=== PATIENT | female | born 1960 | race Caucasian/White ===

== ENCOUNTER → 2017-10-01 12:41 | Outpatient (CLI) | payer BC, SELFPAY ==
--- NOTE | 2017-10-01 12:49 | XR_ITS ---
XR KUB Ordering Physician: Nader Mcknight MD Patient Age: 57 years: Female HISTORY: ITS.REASON: CONSTIPATIONabdominal pain. Constipation. Umbilical pain. HISTORY of diverticulitis. TECHNIQUE: Single supine view abdomen radiograph. COMPARISON : Previous CT abdomen and pelvis November 2016 FINDINGS Prominent, increased stool is seen throughout the right colon with generous stool the transverse colon findings suggest mild to moderate constipation in these areas. Minimal stool and gas is seen at the left colon and rectosigmoid. Small bowel unremarkable. No significant calcifications. Osseous structures unremarkable. IMPRESSION--------- 1. No acute findings. 2. mild/moderate constipation at the right and transverse colon. . Otherwise Minimal stool and gas at the rectosigmoid and left colon.
== END ==
PROVIDERS: PCP Family Medicine; Visit Provider Family Medicine
DX: K59.00 Constipation, unspecified (principal)
CPT/HCPCS: 74018

== ENCOUNTER → 2018-01-31 08:10 | Outpatient (CLI) | payer BC, SELFPAY ==
--- NOTE | 2018-01-31 08:11 | MM_ITS ---
MM Dig screening mamm BI w/CAD CAD Screening ORDERING PHYSICIAN : Rik Dang MD PATIENT AGE: 57 years GENDER: Female HISTORY. Taking Premarin/estrogen. Previous benign excisional biopsy on right. . No new complaints. Family history. Maternal cousin and maternal great aunt with breast cancer COMPARISON: Previous mammograms: Multiple previous mammograms including April 2014, July 2015, 2015, November 2011.: TECHNIQUE: Standard CC and MLO images were obtained. R2 CAD reviewed. FINDINGS: Moderately dense mildly heterogeneous breast bilaterally but with overall similar parenchymal fibroglandular pattern. Prior studies are helpful with no significant new findings . CAD computer review highlighted no areas of concern either RIGHT BREAST:Minimal nodularity at the deep right breast is been present since 2014. & 2016 studies. Can be followed. LEFT. BREAST:Both breast demonstrate increased from gland density towards axillary right and left breast. Overall stable appearance here. Follow up one year. IMPRESSION: . Stable bilateral mammogram. .. No new findings of significant concern. Follow-up one year recommended Moderately dense breast in part reflecting exogenous hormone effect.. BI-RADS Category: 2 Benign Finding(s) RECOMMENDED FOLLOW-UP: 1YR - 1 YEAR FOLLOW-UP (A letter has been sent to the patient regarding results of the study.)
== END ==
PROVIDERS: PCP Family Medicine; Visit Provider Nurse Practitioner Obstetrics & Gynecology
DX: Z12.31 Encounter for screening mammogram for malignant neoplasm of breast (principal)
CPT/HCPCS: 77067

== ENCOUNTER → 2018-06-14 13:39 | Outpatient (CLI) | payer BC, SELFPAY ==
[2018-06-14 13:59] LABS: Blood Urea Nitrogen 14 mg/dL (7-18); Estimated Glomerular Filt Rate 65 ml/min (>60); GFR (African American) 78 ML/MIN (>60)
--- NOTE | 2018-06-14 16:00 | CT_ITS ---
CT abdomen pelvis w con CLINICAL INDICATION: Left lower quadrant pain ITS.REASON: LLQ PAIN ORDERING PHYSICIAN: Maria Luz Bauer MD PATIENT AGE: 58 years COMPARISON: 11/13/2016 TECHNIQUE: Axial images obtained with sagittal and coronal reformats. All CT scans at the facility use one or more dose reduction, viz: automated exposure control, ma/kV adjustment per patient size (including targeted exams where dose is matched to indication, i.e. head), or iterative reconstruction technique. PROCEDURE: Oral Contrast: Gastroview IV Contrast: 75 mL Isovue-370. FINDINGS: There is a moderate-sized hiatal hernia. 7 mm isodense is present in the hepatic dome and may be due to a hepatic cyst. No radio opaque gallstones are evident. The spleen, adrenal glands, and pancreas are unremarkable. No renal or ureteral calculi. No hydronephrosis. There is a moderate amount retained colonic feces no evidence of appendicitis. There is diverticulosis of the descending colon with focal pericholecystic stranding of the fat in the left iliac fossa with thickened diverticulum at this area consistent with acute diverticulitis. No evidence of abscess or perforation. The colon at this region lies between the left psoas muscle and the ileum. This is an anatomic variant. No acute bony anomalies. IMPRESSION: Acute diverticulitis of the descending colon. No evidence of abscess or perforation.
== END ==
PROVIDERS: PCP Family Medicine; Visit Provider Emergency Medicine
DX: R10.32 Left lower quadrant pain (principal)
CPT/HCPCS: 36415; 74177; 82565; 84520; Q9967

== ENCOUNTER → 2018-12-19 10:57 | Outpatient (CLI) | payer BC, SELFPAY ==
[2018-12-19 11:19] LABS: Blood Urea Nitrogen 11 mg/dL (7-18); Estimated Glomerular Filt Rate 65 ml/min (>60); GFR (African American) 78 ML/MIN (>60)
--- NOTE | 2018-12-19 11:52 | CT_ITS ---
CT abdomen pelvis w con CLINICAL INDICATION: Lower abdominal pain, history of diverticulitis ITS.REASON: ABD PAIN ORDERING PHYSICIAN: FILOMENA Farrell PATIENT AGE: 58 years COMPARISON: None TECHNIQUE: Axial images obtained with sagittal and coronal reformats. All CT scans at the facility use one or more dose reduction, viz: automated exposure control, ma/kV adjustment per patient size (including targeted exams where dose is matched to indication, i.e. head), or iterative reconstruction technique. PROCEDURE: Oral Contrast: Gastroview IV Contrast: 75 mL's Optiray 350. FINDINGS: There is a moderate-sized hiatal hernia. Isodensity is present but nature aspect of the right hepatic lobe and may represent a small hepatic cyst at 6 mm. The gallbladder, spleen, adrenal glands, and pancreas have an unremarkable appearance. No intestinal obstruction or free air. No evidence of appendicitis or diverticulitis. There aren't any loops of the colon on the left.. There are few scattered diverticula of the colon. No pelvic mass abnormal fluid collection or focal inflammatory change. No acute bony anomalies. IMPRESSION: No acute abdominal or pelvic findings
== END ==
PROVIDERS: Visit Provider Physician Assistant
DX: R10.32 Left lower quadrant pain (principal)
CPT/HCPCS: 36415; 74177; 82565; 84520; Q9967

== ENCOUNTER 2018-12-24 08:00 | Outpatient (RCR) | payer BC, SELFPAY ==
--- NOTE | 2018-12-05 10:23 | HMH.PTOPEV ---
PT Outpatient Evaluation Rehab PT Outpatient Evaluation Start: 12/05/18 08:41 Freq: Status: Active Protocol: Document 12/05/18 08:41 PHOSABINA (Rec: 12/05/18 09:37 PHORNE [id number]) Electronically Signed By Mahin Randall, PT 12/05/18 08:41 Outpatient Therapy Subjective History Subjective History Pt is a 58 yowf with complaints of right hip pain. Pt reports pain has been there for over two years with seemingly no mechanism of injury. Pt reports having PT 2 years ago which helped, but pain has progressively gotten worse since then. Pt reports seeing the doctor 5 days ago, who prescribed oral steroids, which helped. Pt reports pain is 2/10 at this time, 2/10 at best, and 4/10 at worst and is an ache. Pt reports pain with abduction, IR, and ER of the right hip. Pt reports times when her right knee also gives out. 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 Pt denies comorbidities. Past surgeries include tubal ligation, and tonsilectomy. Chief Complaint Pain Catches/Locks Symptom Type Ache Symptoms Relieved By Rest/Positioning Heat Prescription Meds Symptoms Aggravated By Sitting Standing Bending/Stooping Physical Activity Twisting Walking Lifting Prior Functional Limitations None Current Functional Limitations Standing Sitting Walking Symptom Description Constant but Variable Level of pain today (0-10) 2 Pain scale - at its best (0-10) 2 Pain scale - at its worst (0-10) 4 Hip/Knee Eval Gait Observation General Gait Pattern Observation No Deviations/Normal Assistive Device Assistive Devices None / NA Palpation Tenderness right Knee Palpation Finding None/Normal Hip Palpation Findings Tenderness MMT left
== END 2018-12-24 08:05 | disposition home or self-care (01) ==
LOC: PT 08:00
PROVIDERS: Visit Provider Family Medicine
DX: M25.551 Pain in right hip (principal)
CPT/HCPCS: 97010; 97014; 97033; 97035; 97110; 97140; 97163; G0283

== ENCOUNTER → 2019-01-14 13:22 | Outpatient (CLI) | payer BC, SELFPAY ==
--- NOTE | 2019-01-14 13:28 | US_ITS ---
US Kidney CLINICAL INDICATION: ITS.REASON: HEMATURIA ORDERING PHYSICIAN: Eliazar Banda MD PATIENT AGE: 58 years Comparison: None FINDINGS: Kidneys are normal size shape and position. No hydronephrosis. No cortical thinning. No obvious mass IMPRESSION: Negative bilateral renal ultrasound
== END ==
PROVIDERS: PCP Family Medicine; Visit Provider Family Medicine
DX: R31.21 Asymptomatic microscopic hematuria (principal)
CPT/HCPCS: 76770

== ENCOUNTER → 2019-07-22 09:06 | Outpatient (POV) | payer BC, SELFPAY | PROVIDERS: Visit Provider Dermatology | DX: Z00.00 Encounter for general adult medical examination without abnormal findings (principal) ==

== ENCOUNTER → 2020-03-30 08:44 | Outpatient (POV) | payer BC, SELFPAY | PROVIDERS: PCP Family Medicine; Visit Provider Dermatology | DX: Z00.00 Encounter for general adult medical examination without abnormal findings (principal) ==

== ENCOUNTER → 2020-11-13 11:36 | Outpatient (CLI) | payer BC, SELFPAY ==
--- NOTE | 2020-11-13 12:00 | XR_ITS ---
PROCEDURE: XR SHOULDER LT MIN 2V CLINICAL INDICATION: Shoulder pain COMPARISON: No exams were available for comparison FINDINGS: No fracture or dislocation. No lytic or blastic change. There is normal mineralization. Mild osteoarthritic change of the AC joint. Mild subacromial stenosis. The glenohumeral joint has an unremarkable appearance. Other findings:None. 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
== END ==
PROVIDERS: PCP Family Medicine; Visit Provider Family Medicine
DX: M25.512 Pain in left shoulder (principal); G47.9 Sleep disorder, unspecified
CPT/HCPCS: 73030

== ENCOUNTER → 2020-12-10 12:52 | Outpatient (CLI) | payer BC, SELFPAY | PROVIDERS: PCP Psychiatry & Neurology Psychiatry; Visit Provider Family Medicine | DX: G47.33 Obstructive sleep apnea (adult) (pediatric) (principal); G47.00 Insomnia, unspecified; R53.83 Other fatigue | CPT/HCPCS: G0399 ==

== ENCOUNTER 2021-06-17 12:47 | Emergency (ER) | payer BC, SELFPAY ==
[2021-06-17 12:50] VITALS: BP 133/79; PULSE 92; RESP 20; TEMP 36.7; O2SAT 97; BMI 21.6
--- NOTE | 2021-06-17 13:16 | HMH.EDUTC ---
[facility] [place] Disposition Clinical Impression: Ear problem Qualifiers: Laterality: right Qualified Code(s): H93.91 - Unspecified disorder of right ear Disposition: Home, Self-Care Condition on Discharge: Good Additional Instructions: If you start feeling bug in ear return or follow up with ENT for removal Return if needed Straight to ER if any life threatening symptoms Follow up with Family Doctor if no improvement or any worsening of symptoms Referrals: Eliazar Banda MD [Primary Care Provider] - As needed Time of Disposition: 13:22 Medical Decision Making - Eduard Inquiry Pt receiving controlled substance: No Eduard was queried for this patient: No Vital Signs: 06/17/21 12:50 Temperature 98.0 F Temperature Source Oral Pulse Rate [Right Brachial] 92 H Respiratory Rate 20 Blood Pressure [Right Arm] 133/79 Blood Pressure Mean [Right Arm] 97 Blood Pressure Source [Right Arm] Automatic Cuff Blood Pressure Position [Right Arm] Sitting 02 Sat by Pulse Oximetry 97 Oxygen Delivery Method Room Air Medical Decision Narrative: Patient ear flushed with saline and did observe small red object possible small insect that was drained from ear with saline Patient tolerated well [facility] [place] HPI - General Stated complaint: f/o in rt ear Time Seen by Provider: 06/17/21 13:16 Mode of Arrival: Ambulatory Source of Information: Patient Limitations: No Limitations Description of Symptoms (Recalled from Triage Doc. by RN): PATIENT C/O POSSIBLE BUG IN RIGHT EAR HEENT Symptoms (Recalled from RN notes): Yes Resp Symptoms (Recalled from RN notes): No Skin Symptoms (Recalled from RN notes): No MS Symptoms (Recalled from RN notes): No Functional Status (Recalled from RN notes): WNL - History of Present Illness Provider Complaint: Patient states that she was sitting outside when she felt like a bug flew into her right ear and not sure if it came out or not Statse that at times she feels like she can feel and hear a flutter like sound so she came in to get her ear checked to see if it is still in there or not - Related Data Home Medications Medication Instructions Recorded Confirmed gabapentin 100 mg capsule 100 mg PO HS cap 12/29/20 03/09/21 sulindac 200 mg tablet 200 mg PO BID PRN 12/29/20 03/09/21 Allergies Allergy/AdvReac Type Severity Reaction Status Date / Time codeine [CODEINE] Allergy Mild Verified 03/09/21 08:07 erythromycin base Allergy Mild Verified 03/09/21 08:07 [ERYTHROMYCIN BASE] Penicillins [PENICILLINS] Allergy Mild Verified 03/09/21 08:07 tetracycline [TETRACYCLINE] Allergy Mild Verified 03/09/21 08:07 - Worker's Comp Is this a Worker's Comp case?: No [facility] History - Hepatitis A Screen Drug use history?: No High risk sexual behaviors?: No History of sexually transmitted infection?: No Currently employed?: No Childcare worker?: No Do you have indoor plumbing?: Yes Do you have electricity?: Yes Attestation statement:: This patient has been screened for Hepatitis A risk factors. I have reviewed the patient's past medical history: Yes Other Medical History: Reports: Arthritis, Sinus Problems, Other Comment: Indigestion. Varicose Veins. Hot Flashes. Constipation Laterality Cases: Bilateral: Tonsillectomy Other Surgeries: Yes: Tubal Ligation, Other Amputation: No Fractures: No Comment: Varicose Veins. Breast Bx - Social History Smoking Status: Former smoker Alcohol Intake: current Alcohol Intake Frequency:: holidays/special occasions only Substance Use Type: denies use Occupational Status: employed Housing: house Household Members: spouse Family Hx:: Coronary Artery Disease, Cancer, Hypertension Comment: [facility] of [facility] [employer] history: Tubal Ligation ROS Obtained: Yes All systems reviewed & no additional complaints, Yes Systems reviewed as appropriate & no additional complaints - Constitutional Constitutional: Reports system reviewed and no additional complaints, except as docu,
[2021-06-17 13:20] VITALS: BP 133/79; PULSE 92; RESP 20; TEMP 36.7; O2SAT 97
== END 2021-06-17 13:25 | disposition home or self-care (01) ==
PROVIDERS: Emergency Provider Nurse Practitioner; PCP Family Medicine
DX: H93.91 Unspecified disorder of right ear (principal)
CPT/HCPCS: 99202; G0463

== ENCOUNTER → 2021-07-19 15:33 | Outpatient (CLI) | payer BC, SELFPAY | PROVIDERS: PCP Family Medicine; Visit Provider Nurse Practitioner | DX: Z20.822 Contact with and (suspected) exposure to COVID-19 (principal) | CPT/HCPCS: C9803; U0003; U0005 ==

== ENCOUNTER → 2022-01-12 07:56 | Outpatient (CLI) | payer BC, SELFPAY ==
--- NOTE | 2022-01-12 08:00 | MM_ITS ---
PROCEDURE INFORMATION: Exam: MG Bilateral Screening 3D Mammography Exam date and time: 01/12/2022 7:59 AM Age: 61 years old Clinical indication: Screening mammogram. TECHNIQUE: Imaging protocol: Bilateral Screening tomosynthesis and 2D mammography including computer-aided detection (CAD) when performed. COMPARISON: 1. MG SCBI MM Dig screening mamm BI w/CAD 01/31/2018 8:26 AM 2. MG DMDXUWAR DIG MAMM-DX UNI RT W ADD VIEW 08/28/2016 1:13 PM 3. MG DMSB DIG MAMM-SCREEN JESUS MANUEL 08/02/2016 9:53 AM 4. MG DMSB DIG MAMM-SCREEN JESUS MANUEL 07/30/2015 3:16 PM FINDINGS: MAMMOGRAPHY: Breast composition: The breast is heterogeneously dense, which may obscure small masses. Mass: None. Architectural distortion: No new or suspicious architectural distortion. Calcifications: No new or suspicious calcifications are present Asymmetric density: No new or suspicious asymmetric density is present Skin thickening: None. Axillary adenopathy: None. IMPRESSION: No mammographic evidence of malignancy. Recommend annual screening mammography unless otherwise clinically indicated. ASSESSMENT: BI-RADS category 1: Negative
== END ==
PROVIDERS: PCP Family Medicine; Visit Provider Physician Assistant
DX: Z12.31 Encounter for screening mammogram for malignant neoplasm of breast (principal)
CPT/HCPCS: 77063; 77067

== ENCOUNTER → 2022-05-23 09:55 | Outpatient (POV) | payer BC, SELFPAY | PROVIDERS: Visit Provider Dermatology | DX: Z00.00 Encounter for general adult medical examination without abnormal findings (principal) ==

== ENCOUNTER 2023-03-24 11:07 | Emergency (ER) | payer BC, SELFPAY ==
[2023-03-24 11:15] VITALS: BP 128/76; PULSE 90; RESP 20; TEMP 36.6; O2SAT 99; BMI 22.8
--- NOTE | 2023-03-24 11:39 | EXP.UTC ---
Discharge Plan Disposition Patient Disposition: Home, Self-Care Condition: Good Prescriptions Prescriptions: New cefdinir 300 mg capsule 300 mg PO BID Qty: 20 0RF fluticasone propionate [fluticasone propionate] 50 mcg/actuation spray,suspension 1 spray intranasal DAILY Qty: 9.9 0RF No Action gabapentin 100 mg capsule 100 mg PO HS sulindac 200 mg tablet 200 mg PO BID PRN Referrals Follow up/Referrals: Eliazar Banda MD [Primary Care Provider] - See instructions Activity Restrictions/Add. Instructions Additional Instructions/Restrictions: Start antibiotic as soon as possible and be sure to take as ordered for full length of time even though he should start feeling better in 24-48 hours. Tylenol or Motrin as needed for pain or fever Encourage fluids, water, Gatorade, Powerade, Pedialyte if infant/toddler/child Warm compresses often helps when placed over ear Return immediately for new or worsening symptoms no noticeable improvement in 48-72 hours and in 10-14 days to ensure the ears are return to baseline. Follow-up with primary care Clinical Impressions Clinical Impression: Otitis media Qualifiers: Otitis media type: suppurative Chronicity: acute Laterality: left Recurrence: non-recurrent Spontaneous tympanic membrane rupture: without spontaneous rupture Qualified Code(s): H66.002 - Acute suppurative otitis media without spontaneous rupture of ear drum, left ear Instructions Patient Instructions: Middle Ear Infection Discharge ED Provider: Anderson ([facility])Herlinda [facility] [place] HPI General Stated complaint: Ear pain cough drainage Mode of Arrival: Ambulatory Source of Information: Patient Limitations: No Limitations Time Seen by Provider: 03/24/23 11:39 Description of Symptoms (Recalled from Triage Doc. by RN): PATIENT C/O BILATERAL EAR PRESSURE, RUNNY NOSE AND COUGH SINCE YESTERDAY HEENT Symptoms (Recalled from RN notes): Yes Resp Symptoms (Recalled from RN notes): Yes Skin Symptoms (Recalled from RN notes): No MS Symptoms (Recalled from RN notes): No Functional Status (Recalled from RN notes): WNL History of Present Illness Provider Complaint: 62 yr old female presents for left ear pain, runny nose, sinus pressure, congestion and sinus tenderness Related Data Home Medications Medication Instructions Recorded Confirmed gabapentin 100 mg capsule 100 mg PO HS 12/29/20 03/09/21 sulindac 200 mg tablet 200 mg PO BID PRN 12/29/20 03/09/21 Previous Rx's Medication Instructions Recorded cefdinir 300 mg capsule 300 mg PO BID #20 caps 03/24/23 fluticasone propionate 50 1 spray intranasal DAILY #9.9 mL 03/24/23 mcg/actuation nasal spray,suspension Allergies Allergy/AdvReac Type Severity Reaction Status Date / Time codeine [CODEINE] Allergy Mild Verified 03/09/21 08:07 erythromycin base Allergy Mild Verified 03/09/21 08:07 [ERYTHROMYCIN BASE] Penicillins [PENICILLINS] Allergy Mild Verified 03/09/21 08:07 tetracycline [TETRACYCLINE] Allergy Mild Verified 03/09/21 08:07 Worker's Comp Is this a Worker's Comp case?: No [facility] Disclaimer: The information contained in this section may have been updated after the patient was seen, as this information can be updated by other users. 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
[2023-03-24 11:45] VITALS: BP 128/76; PULSE 90; RESP 20; TEMP 36.6; O2SAT 99
== END 2023-03-24 11:50 | disposition home or self-care (01) ==
PROVIDERS: Emergency Provider Nurse Practitioner Family; PCP Family Medicine
DX: H66.002 Acute suppurative otitis media without spontaneous rupture of ear drum, left ear (principal); R09.81 Nasal congestion; Z87.891 Personal history of nicotine dependence
CPT/HCPCS: 99212; 99214; G0463

== ENCOUNTER → 2023-06-14 07:53 | Outpatient (CLI) | payer BC, SELFPAY ==
--- NOTE | 2023-06-14 07:56 | MM_ITS ---
PROCEDURE INFORMATION: Exam: MG Bilateral Screening 3D Mammography Exam date and time: 06/14/2023 7:51 AM Age: 63 years old Clinical indication: Screening mammogram TECHNIQUE: Imaging protocol: Bilateral Screening tomosynthesis and 2D mammography including computer-aided detection (CAD) when performed. COMPARISON: 1. MG MM DIG SCREENING MAMM BI W/CAD 01/12/2022 7:59 AM 2. MG SCBI MM Dig screening mamm BI w/CAD 01/31/2018 8:26 AM 3. MG DMDXUWAR DIG MAMM-DX UNI RT W ADD VIEW 08/28/2016 1:13 PM 4. MG DMSB DIG MAMM-SCREEN JESUS MANUEL 08/02/2016 9:53 AM FINDINGS: MAMMOGRAPHY: Breast composition: The breast is heterogeneously dense, which may obscure small masses. Mass: None. Architectural distortion: No new or suspicious architectural distortion. Calcifications: Stable benign-appearing calcifications are present. No new or suspicious cluster of microcalcifications have developed. Asymmetric density: No new or suspicious asymmetric density is present Skin thickening: None. Axillary adenopathy: None. IMPRESSION: No mammographic evidence of malignancy. Recommend annual screening mammography unless otherwise clinically indicated. ASSESSMENT: BI-RADS category 2: Benign
== END ==
PROVIDERS: PCP Psychiatry & Neurology Sleep Medicine; Visit Provider Family Medicine
DX: Z12.31 Encounter for screening mammogram for malignant neoplasm of breast (principal)
CPT/HCPCS: 77063; 77067

== ENCOUNTER 2024-11-24 07:52 | Day surgery (SDC) | payer BC, SELFPAY ==
[2024-11-21 13:20] VITALS: BMI 22.4
[2024-11-24 08:28] VITALS: BP 110/72; PULSE 84; RESP 18; TEMP 36.5; O2SAT 96
[2024-11-24] MEDS: LACTATED RINGERS 1000ML 1,000 ML 50 ML IV (08:31)
--- NOTE | 2024-11-24 08:50 | P.PNANES_ITS ---
[facility] Disclaimer: The information contained in this section may have been updated after the patient was seen, as this information can be updated by other users. Medical History Otitis media Ear problem Hormone replacement therapy Migraine Surgical History (Updated 11/21/24 @ 13:16 by Mar East RN) History of breast biopsy History of tubal ligation History of tonsillectomy Family History (Updated 11/21/24 @ 13:17 by Mar East RN) Other Dementia Heart disease Social History Smoking Status: Former smoker alcohol intake: current alcohol intake frequency: holidays/special occasions only substance use type: denies use current occupational status: employed Travel in the last 8 weeks: None household members: spouse housing: house Have you lived/traveled outside [place] in past 30 days?: No Contact w/someone who lives/traveled outside US past 30 days?: No Exposure to someone with infectious disease in past 14 days?: No Do you have a fever (greater than 100.4 F or 38 C)?: No Have you tested positive for COVID-19: No Exposed to someone with COVID-19 in past 14 days?: No Do you have a sore throat?: No Do you have a cough?: No Do you have any weakness?: No Do you have any diarrhea?: No Are you experiencing any unusual bleeding?: No Do you have any muscle aches/pain?: No Do you have any abdominal pain?: No Are you experiencing loss of taste or smell?: No [facility] Anesthesia Checklist Patient Identification Patient Identification: Verbal (Name & ) Structural Data Admitted From: Home Planned Operative Procedure/s: colonoscopy Consent for Planned Operative Procedure(s) Verified: Yes NPO Status Verified Time NPO: 00:00 Airway Assessment Mallampati Score:: Class II C-Spine Mobility Assessed: Yes TMJ Mobility Assessed: Yes Dentition: Good Dentition Neurological Assessment Level of Consciousness: Awake, Alert and Appropriate Anesthesia Plan Anesthesia Risk discussed: Yes Anesthesia Plan: Verified ASA Class: II Anesthesia Type: MAC
--- NOTE | 2024-11-24 08:50 | EXP.HP ---
History of Present Illness *Admission Date: 11/24/24 *Reason for visit:: Screening for colon cancer *History of present illness: Mrs. Barron is a 64-year-old female who is here for screening colonoscopy. Her last colonoscopy was 15 years ago. The examination is deemed medically necessary for screening colonoscopy. The patient has been seen, interviewed and examined prior to the procedure by both myself and the anesthesia provider. [facility] Disclaimer: The information contained in this section may have been updated after the patient was seen, as this information can be updated by other users. Medical History (Updated 11/24/24 @ 09:01 by Guille Aponte II, MD) Otitis media Ear problem Hormone replacement therapy Migraine Surgical History (Updated 11/21/24 @ 13:16 by Mar East RN) History of breast biopsy History of tubal ligation History of tonsillectomy Family History (Updated 11/21/24 @ 13:17 by Mar East RN) Other Dementia Heart disease Social History Smoking Status: Former smoker alcohol intake: current alcohol intake frequency: holidays/special occasions only substance use type: denies use current occupational status: employed Travel in the last 8 weeks: None household members: spouse housing: house Have you lived/traveled outside US in past 30 days?: No Contact w/someone who lives/traveled outside US past 30 days?: No Exposure to someone with infectious disease in past 14 days?: No Do you have a fever (greater than 100.4 F or 38 C)?: No Have you tested positive for COVID-19: No Exposed to someone with COVID-19 in past 14 days?: No Do you have a sore throat?: No Do you have a cough?: No Do you have any weakness?: No Do you have any diarrhea?: No Are you experiencing any unusual bleeding?: No Do you have any muscle aches/pain?: No Do you have any abdominal pain?: No Are you experiencing loss of taste or smell?: No Other Medical History Have you received the Flu Vaccine for this season: No Have you received the Pneumonia Vaccine: No Review of Systems Review of Systems Review of systems (narrative): Negative *Cardiovascular Comments: Negative *Gastrointestinal Comments: Negative *Genitourinary Comments: Negative *Musculoskeletal Comments: Negative *Neurologic Comments: Negative Meds Home Medications and Allergies Home Medications ?Medication ?Instructions ?Recorded ?Confirmed ?Type fluticasone propionate 50 1 spray intranasal DAILY #9.9 mL 03/24/23 11/24/24 Rx mcg/actuation nasal spray,suspension estradiol 0.075 mg/24 hr 1 patch topical WEEKLY 02/15/24 11/24/24 History semiweekly transdermal patch (Trina) progesterone micronized 200 mg 200 mg PO DAILY 02/15/24 11/24/24 History capsule New Prescriptions to Start Prescriptions: Allergies Allergy/AdvReac Type Severity Reaction Status Date / Time codeine (CODEINE) Allergy Mild Rash Verified 11/24/24 08:23 erythromycin base Allergy Mild Rash Verified 11/24/24 08:23 (ERYTHROMYCIN BASE) Penicillins (PENICILLINS) Allergy Mild Rash Verified 11/24/24 08:23 tetracycline (TETRACYCLINE) Allergy Mild Rash Verified 11/24/24 08:23 Exam Data for Last 24 hours I & O for Last 24 hours: Intake & Output 11/21/24 11/22/24 11/23/24 11/24/24 23:59 23:59 23:59 23:59 Weight 135 lb *Routine HEENT Exam Head: Present normocephalic Eye: Present EOMI and PERRL ENT: Present mucous membranes moist *Routine Neck Exam Neck: Present supple *Routine Respiratory Exam Respiratory: Present CTA bilaterally *Routine Cardiovascular Exam Cardiovascular: Present RRR *Routine Abdominal Exam Abdominal: Present soft and normoactive bowel sounds; Absent tenderness *Routine Rectal Exam Rectal:: deferred *Routine Genitalia Exam Genitalia:: deferred *Routine Extremities Exam Extremities: Absent cyanosis, clubbing or edema *Routine Skin Exam Skin: Present warm; Absent rash *Routine Neurological Exam Neurological: Present alert and oriented X3 Assessment and Plan *Assessment and plan (1) Screening for colon cancer: Status: Acute Category: Medical Code(s): Z12.11 - Encounter for screening for malignant neoplasm of colon Plan A/P: 1. Screening for colon cancer is the preprocedural diagnosis. The patient will be anesthetized/sedated using MAC sedation. The patient has been seen and examined. Cardiac and lung assessment prior to the examination is stable. Proceed with planned screening colonoscopy
[2024-11-24 09:01] VITALS: O2SAT 97
--- NOTE | 2024-11-24 09:01 | HMH.PROCNOTE ---
[facility] Procedure Note Date: 11/24/24 Time: 09:17 Procedure Note:: Colonoscopy Procedure Report: Colonoscopy with cold snare polypectomy Endoscopist: Guille Aponte II, MD Referring physician: Yadira Erazo PA-C Date of Procedure: November 24, 2024 Equipment: Olympus 190 variable stiffness pediatric colonoscope Sedation: MAC sedation Indication: Mrs. Barron is a 64-year-old female who is here for screening colonoscopy. Her last colonoscopy was 15 years ago. The patient does have some alternating IBS with alternating constipation and diarrhea. She does have a prior history of diverticulitis and will have some occasional abdominal pain. She reports no rectal bleeding, weight loss or family history of colon cancer. Procedure: Prior to the procedure, a history and physical exam was performed, and patient's medications and allergies were reviewed. The risks, benefits and alternatives of the sedation and procedure were discussed with the patient. All questions were answered and informed consent was obtained. The patient was brought to the procedure room. Patient identification and proposed procedure were verified by the physician and the nurse. The patient was placed in a left lateral decubitus position and the scope was passed under direct vision. Throughout the procedure, the patient's blood pressure, pulse, and oxygen saturations were monitored continuously. The colonoscopy was accomplished without difficulty. The patient tolerated the procedure well. Findings: On digital rectal examination there was normal rectal tone. There were no external hemorrhoids. The colonoscope was introduced through the anal canal to the rectum and advanced to the cecum. The ileocecal valve and appendiceal orifice were identified. The scope was advanced a short distance into the ileum which appeared grossly normal. The scope was then withdrawn into the colon. There were 4 colon polyps (cecum x 1 (5 mm), ascending x 2 (2 and 3 mm) and descending x 1 (4 mm)). These were all removed via cold snare polypectomy. The remaining cecum, ascending and transverse colon and mucosa were grossly normal. There were scattered diverticuli throughout the descending and sigmoid colon (LEFT colon). The rectum itself was normal. There was some blanching of the rectal mucosa (possible perfusion defect). Upon retroflexion within the rectum there were grade 1-2 internal hemorrhoids. The preparation was excellent throughout with Dickinson Preparation Score of 9. The cecal time was 12 minutes. Impression: 1. Diminutive colonic polyps x 4 2. Left-sided diverticulosis 3. Grade 1-2 internal hemorrhoids Plan: I will follow-up the polyp histology and recommend repeat surveillance colonoscopy again in 5 to 7 years based upon the pathology. I would encourage dietary measures and psyllium fiber supplementation on a long-term daily maintenance basis.
[2024-11-24 09:22] VITALS: BP 96/59; PULSE 75; RESP 17; TEMP 36.2; O2SAT 97
[2024-11-24 09:32] VITALS: BP 109/62; PULSE 70; RESP 17; O2SAT 99
[2024-11-24 09:42] VITALS: BP 117/68; PULSE 74; RESP 18; O2SAT 99
[2024-11-24 09:52] VITALS: BP 118/48; PULSE 72; RESP 17; O2SAT 98
== END 2024-11-24 10:14 | disposition home or self-care (01) ==
PROVIDERS: PCP Family Medicine; Visit Provider Internal Medicine Gastroenterology
PROC: 0DJD8ZZ Inspection of Lower Intestinal Tract, Via Natural or Artificial Opening Endoscopic (ICD-10-PCS; CPT 45378; principal; 2024-11-24 09:30)
DX: K63.5 Polyp of colon (principal); K57.30 Diverticulosis of large intestine without perforation or abscess without bleeding; K64.8 Other hemorrhoids; Z12.11 Encounter for screening for malignant neoplasm of colon; K58.2 Mixed irritable bowel syndrome
CPT/HCPCS: 45385; J7120

== ENCOUNTER 2025-04-20 10:44 | Outpatient (CLI) | payer BC, SELFPAY ==
--- NOTE | 2025-04-20 10:45 | CT_ITS ---
FINAL REPORT TECHNIQUE: CT examination of the paranasal sinuses was performed without intravenous contrast using axial images from the vertex through the upper neck. Multiplanar reconstructions in the sagittal and coronal planes were subsequently performed. This study was performed with techniques to keep radiation doses as low as reasonably achievable (ALARA). Individualized dose reduction techniques using automated exposure control or adjustment of mA and/or kV according to the patient's size were employed. CLINICAL HISTORY: ACUTE SINUSITIS COMPARISON: None FINDINGS: CT SINUSES: There is mild mucoperiosteal thickening in the sphenoid sinus. The remainder of the paranasal sinuses are well aerated. The ostiomeatal units are intact. There is no fracture. There are no air-fluid levels. IMPRESSION: Mild mucoperiosteal thickening in the sphenoid sinus, without evidence of air-fluid levels. Reviewed, Interpreted and Dictated by Jairo Fair MD Transcribed by Noemí Pinedo Authenticated and [facility]
== END 2025-04-20 23:59 | disposition home or self-care (01) ==
LOC: RAD 10:44
PROVIDERS: PCP Family Medicine; Visit Provider Family Medicine
DX: J01.90 Acute sinusitis, unspecified (principal); R93.0 Abnormal findings on diagnostic imaging of skull and head, not elsewhere classified
CPT/HCPCS: 70486

== ENCOUNTER 2025-04-26 16:03 | Inpatient (IN) | payer BC, SELFPAY ==
[2025-04-26] VITALS (18 sets, daily range): BP systolic 121–166; BP diastolic 50–83; PULSE 80–141; RESP 16–30; TEMP 36.8–37.1; O2SAT 94–98; BMI 22.3; BMI 22.4
[2025-04-26 16:23] LABS: Coronavirus 19, PCR Not Detected (NotDetected); Influenza A, PCR Not Detected (NotDetected); Influenza B, PCR Not Detected (NotDetected)
--- NOTE | 2025-04-26 16:30 | ECG_ITS ---
APPROVED REPORT Exam: Resting ECG HR:134 bpm ECG Measurements Heart Rate 134 AXES WV 138 P 75 QRSd 87 QRS 76 QT 276 T 56 QTc 355 Conclusion SINUS TACHYCARDIA ABNORMAL RHYTHM ECG UNCONFIRMED REPORT Electronically signed by : Mark Guevara, 04/26/2025 23:10:44
--- NOTE | 2025-04-26 16:31 | CT_ITS ---
PROCEDURE INFORMATION: Exam: CT Abdomen And Pelvis With Contrast Exam date and time: 04/26/2025 6:09 PM Age: 64 years old Clinical indication: Abdominal pain TECHNIQUE: Imaging protocol: Computed tomography of the abdomen and pelvis with contrast. 3D rendering (Not supervised by radiologist): MIP and/or 3D reconstructed images were created by the technologist. Radiation optimization: All CT scans at this facility use at least one of these dose optimization techniques: automated exposure control; mA and/or kV adjustment per patient size (includes targeted exams where dose is matched to clinical indication); or iterative reconstruction. Contrast material: ISOVUE; Contrast volume: 80 ml; Contrast route: IV; COMPARISON: CT - ABDPELW CT abdomen pelvis w con 12/19/2018 1:28 PM FINDINGS: Lungs: Dependent bilateral lung base opacities favor atelectasis. Liver: Normal. No mass. Gallbladder and biliary ducts: Normal. No calcified stones. No ductal dilation. Pancreas: Normal. No ductal dilation. Spleen: Normal. No splenomegaly. Adrenal glands: Normal. No mass. Kidneys and ureters: Normal. No hydronephrosis. Stomach and bowel: Large hiatal hernia with significant portion of the gastric body located at the lower mediastinum. There are multiple diverticula throughout the sigmoid colon, with subjacent inflammatory changes compatible with diverticulitis. Appendix: No evidence of appendicitis. Intraperitoneal space: Unremarkable. No free air. No significant fluid collection. Vasculature: Moderate calcific atherosclerotic disease of the abdominal aorta without aneurysmal dilatation is present. Lymph nodes: Unremarkable. No enlarged lymph nodes. Urinary bladder: Unremarkable as visualized. Reproductive: Unremarkable as visualized. Bones/joints: Unremarkable. No acute fracture. Soft tissues: Normal. IMPRESSION: 1. Acute diverticulitis as described above without evidence of colonic perforation or abscess. 2. Large hiatal hernia with significant portion of the gastric body located at the lower mediastinum.
--- NOTE | 2025-04-26 16:31 | CT_ITS ---
PROCEDURE INFORMATION: Exam: CTA Chest With Contrast Exam date and time: 04/26/2025 6:09 PM Age: 64 years old Clinical indication: Cough; Additional info: Cough/tachy TECHNIQUE: Imaging protocol: Computed tomographic angiography of the chest with contrast. Exam focused on the arteries. 3D rendering (Not supervised by radiologist): MIP and/or 3D reconstructed images were created by the technologist. Radiation optimization: All CT scans at this facility use at least one of these dose optimization techniques: automated exposure control; mA and/or kV adjustment per patient size (includes targeted exams where dose is matched to clinical indication); or iterative reconstruction. Contrast material: ISOVUE; Contrast volume: 80 ml; Contrast route: INTRAVENOUS (IV); COMPARISON: CT - ABDPELW CT abdomen pelvis w con 12/19/2018 1:28 PM FINDINGS: Pulmonary arteries: No CT angiography evidence of pulmonary embolism. Aorta: Unremarkable. No aortic aneurysm. No aortic dissection. Lungs: Dependent bilateral lung base opacities favor atelectasis. Pleural spaces: Unremarkable. No pneumothorax. No pleural effusion. Heart: Unremarkable. No cardiomegaly. No pericardial effusion. Coronary arteries: Moderate three-vessel calcific atherosclerotic disease of the coronary arteries. Lymph nodes: Unremarkable. No enlarged lymph nodes. Stomach: Large hiatal hernia with significant portion of the gastric body located at the lower mediastinum. Bones/joints: Unremarkable. No acute fracture. Soft tissues: Unremarkable. IMPRESSION: 1. Large hiatal hernia with significant portion of the gastric body located at the lower mediastinum. 2. No CT angiography evidence of pulmonary embolism.
[2025-04-26] MEDS: 0.9 % SODIUM CHLORIDE 1000ML 1,000 ML 999 ML IV (16:43)
[2025-04-26] MEDS: KETOROLAC 30MG/ML VIAL 30 MG IV (16:44)
--- NOTE | 2025-04-26 16:46 | ED_ITS ---
<Statement entered by Arlyn Guevara MD - 04/26/25 22:59> I was consulted by the BEHZAD, and we discussed the complexity of the problems being addressed. I approved the treatment and management plan for this patient's care in the emergency department, thus performing a substantive portion of the medical decision making. Arlyn Guevara MD, CORBY, FACEP Discharge Plan Disposition Patient Disposition: Admitted Clinical Impressions Clinical Impression: Diverticulitis, Sepsis Discharge ED Provider: Arlyn Guevara General Adult HPI General Chief complaint: PAIN Stated complaint: sick for 2 months, pain all over Time Seen by Provider: 04/26/25 16:21 Mode of Arrival: Ambulatory Source of Information: Patient and Spouse Description of Symptoms (Recalled from ER Triage Doc. by RN): Patient presents to ED from home with c/o generalized bodyaches, nausea, chills, low back pain that radiates through to the lower stomach x2 months. Patient reports feeling unwell since being dx with a sinus infection 03/06/25. States she saw her PCP on and had labs done, reports they were normal . History of Present Illness HPI narrative: 64-year-old female presents to the ED with complaint of nausea, chills, low back pain that radiates through to her abdomen. Says this has been going on for months. She says she was initially diagnosed with a sinus infection she says then she was diagnosed again with a bacterial infection of some kind. She has been on 4 antibiotics. She says she was on azithromycin twice then Levaquin and cefdinir. She was also placed on hydroxyzine for sleep which she took 1 time and felt terrible afterwards. She says she is not felt the same since. She has no chest pain or shortness of breath however her heart rate on arrival is 140. She has nausea no vomiting or diarrhea. She has a headache but those are improving. She has tenderness diffusely in her abdomen. She is tachycardic on estradiol. She also has lower abdominal pain. Related Data Home Medications ?Medication ?Instructions ?Recorded ?Confirmed No Known Home Medications 04/26/2504/04 Allergies Allergy/AdvReac Type Severity Reaction Status Date / Time codeine (CODEINE) Allergy Mild Rash Verified 11/24/24 08:23 erythromycin base Allergy Mild Rash Verified 11/24/24 08:23 (ERYTHROMYCIN BASE) Penicillins (PENICILLINS) Allergy Mild Rash Verified 11/24/24 08:23 tetracycline (TETRACYCLINE) Allergy Mild Rash Verified 11/24/24 08:23 [facility] Disclaimer: The information contained in this section may have been updated after the patient was seen, as this information can be updated by other users. Medical History Otitis media Ear problem Hormone replacement therapy Migraine Surgical History History of breast biopsy History of tubal ligation History of tonsillectomy Family History Other Dementia Heart disease Social History (Updated 04/26/25 @ 21:54 by Lucille Yost RN) Smoking Status: Heavy tobacco smoker alcohol intake: never substance use type: denies use current occupational status: employed and retired Travel in the last 8 weeks?: None household members: spouse housing: house Have you lived/traveled outside US in past 30 days?: No Contact w/someone who lives/traveled outside US past 30 days?: No Exposure to someone with infectious disease in past 14 days?: No Do you have a fever (greater than 100.4 F or 38 C)?: No Have you tested positive for COVID-19?: No Exposed to someone with COVID-19 in past 14 days?: No Do you have a sore throat?: No Do you have a cough?: No Do you have any weakness?: No Do you have any diarrhea?: No Are you experiencing any unusual bleeding?: No Do you have any muscle aches/pain?: No Do you have any abdominal pain?: No Are you experiencing loss of taste or smell?: No Other Medical History Have you received the Flu Vaccine for this season: No Have you received the Pneumonia Vaccine: No ROS Obtained: Yes Systems reviewed as appropriate & no additional complaints except as documented Constitutional Constitutional: Reports as per HPI Physical Exam General General appearance: alert Head Head exam: atraumatic and normocephalic Eye Eye exam: Present PERRL and EOMI ENT ENT exam: Present normal oropharynx and mucous membranes moist Neck Neck exam: Present full ROM and trachea midline Respiratory Respiratory exam: Present normal lung sounds bilaterally Cardiovascular Cardiovascular exam: Present normal rhythm, tachycardia, normal heart sounds, +S1 and +S2 Abdominal Exam Abdominal exam: Present soft and normal bowel sounds Abdominal tenderness: Present diffuse Extremities Exam Extremities exam: Present full ROM and normal capillary refill Back Exam Back exam: Present normal inspection Neurological Exam Neurological exam: Present alert, oriented X3 and normal gait Skin Skin exam: Present warm, dry and intact Medical Decision Making Medical Records Screening: Per USPSTF and CDC recommendations, given the prevalence of disease in our region, it is our hospital?s policy to screen for HIV and viral Hepatitis for all patients aged 18 and over and those with ongoing risk factors. Eduard Inquiry Pt receiving controlled substance: No Eduard was queried for this patient: No Vital Signs: 04/26/25 16:18 04/26/25 16:23 04/26/25 16:30 Temperature 98.2 F Temperature Source Oral Pulse Rate 141 H 123 H Pulse Rate [Left] 140 H Respiratory Rate 19 20 19 Blood Pressure Blood Pressure [Right Arm] 146/83 H Blood Pressure Mean Blood Pressure Mean [Right Arm] 104 Blood Pressure Source [Right Arm] Automatic Cuff Blood Pressure Position Blood Pressure Position [Right Arm] Sitting 02 Sat by Pulse Oximetry 95 98 95 Oxygen Delivery Method Room Air Room Air Room Air 04/26/25 16:33 04/26/25 17:00 04/26/25 17:30 Temperature Temperature Source Pulse Rate 125 H 122 H 119 H Pulse Rate [Left] Respiratory Rate 23 19 30 H Blood Pressure 144/74 H 153/66 H 143/64 H Blood Pressure [Right Arm] Blood Pressure Mean 101 94 Blood Pressure Mean [Right Arm] Blood Pressure Source [Right Arm] Blood Pressure Position Blood Pressure Position [Right Arm] 02 Sat by Pulse Oximetry 96 96 97 Oxygen Delivery Method Room Air Room Air Room Air 04/26/25 18:15 04/26/25 18:30 04/26/25 19:31 Temperature Temperature Source Pulse Rate 125 H 119 H 115 H Pulse Rate [Left] Respiratory Rate 29 H 21 28 H Blood Pressure 142/62 H 150/71 H 137/66 Blood Pressure [Right Arm] Blood Pressure Mean Blood Pressure Mean [Right Arm] Blood Pressure Source [Right Arm] Blood Pressure Position Blood Pressure Position [Right Arm] 02 Sat by Pulse Oximetry 97 96 97 Oxygen Delivery Method Room Air 04/26/25 20:15 04/26/25 20:30 04/26/25 20:39 Temperature Temperature Source Pulse Rate 119 H 118 H 119 H Pulse Rate [Left] Respiratory Rate 26 H 27 H 28 H Blood Pressure 121/66 146/73 H 166/67 H Blood Pressure [Right Arm] Blood Pressure Mean Blood Pressure Mean [Right Arm] Blood Pressure Source [Right Arm] Blood Pressure Position Blood Pressure Position [Right Arm] 02 Sat by Pulse Oximetry 96 96 97 Oxygen Delivery Method 04/26/25 21:00 04/26/25 21:13 04/26/25 21:30 Temperature 98.7 F Temperature Source Oral Pulse Rate 116 H 116 H Pulse Rate [Left] Respiratory Rate 29 H 20 Blood Pressure 130/67 130/67 130/50 L Blood Pressure [Right Arm] Blood Pressure Mean 76 Blood Pressure Mean [Right Arm] Blood Pressure Source [Right Arm] Blood Pressure Position Sitting Blood Pressure Position [Right Arm] 02 Sat by Pulse Oximetry 94 L Oxygen Delivery Method Room Air 04/26/25 21:31 04/26/25 21:31 Temperature Temperature Source Pulse Rate 124 H Pulse Rate [Left] Respiratory Rate Blood Pressure 141/69 H Blood Pressure [Right Arm] Blood Pressure Mean 80 Blood Pressure Mean [Right Arm] Blood Pressure Source [Right Arm] Blood Pressure Position Blood Pressure Position [Right Arm] 02 Sat by Pulse Oximetry 97 Oxygen Delivery Method Lab Data Lab Results 04/26/25 16:20: SARS-CoV-2 (PCR) Not detected, Influenza A Untype (PCR) Not detected, Influenza Type B (PCR) Not detected 04/26/25 16:38: WBC 19.7 H, RBC 4.26, Hgb 13.6, Hct 39.3, MCV 92.3, MCH 31.9 H, MCHC 34.6, RDW 12.0, Plt Count 320, MPV 9.1, Neut % (Auto) 80.4 H, Lymph % (Auto) 8.6 L, Toole % (Auto) 10.3 H, Eos % (Auto) 0.1, Baso % (Auto) 0.1, Neut # (Auto) 15.9 H, Lymph # (Auto) 1.7, Toole # (Auto) 2.0 H, Eos # (Auto) 0.0, Baso # (Auto) 0.0, Total Counted 100, Neutrophils % (Manual) 76, Lymphocytes % (Manual) 10, Monocytes % (Manual) 14 H, Platelet Estimate Normal, RBC Morphology Normal, Sodium 135 L, Potassium 4.6, Chloride 105, Carbon Dioxide 22, Anion Gap 12.6, BUN 14, Creatinine 0.60, Estimated Creat Clear 55, Estimated GFR 101, Est GFR ( Amer) 122, Glucose 145 H, Lactate 0.9, Calcium 9.7, Magnesium 1.7, Total Bilirubin 0.6, AST 53 H, ALT 60, Alkaline Phosphatase 105, Troponin I < 0.01, Total Protein 7.0, Albumin 3.8, Globulin 3.2, Albumin/Globulin Ratio 1.2, Lipase 63, Procalcitonin 0.086 04/26/25 18:24: Urine Color Yellow, Urine Appearance Clear, Urine pH 6.0, Ur Specific Marcella <= 1.005, Urine Protein Negative, Urine Glucose (UA) Negative, Urine Ketones Negative, Urine Blood 1+ A, Urine Nitrate Negative, Urine Bilirubin Negative, Urine Urobilinogen 0.2, Ur Leukocyte Esterase Negative, Urine RBC 3-5, Urine WBC Occasional, Ur Squamous Epith Cells Occasional, Urine Bacteria None 04/26/25 16:38 04/26/25 16:38 Orders (Tests/Meds): ED MEDICATIONS Generic Name Dose Route Start Last Admin Trade Name Freq PRN Reason Stop Dose Admin Acetaminophen 650 mg 04/26/25 20:52 Acetaminophen 325mg Tab PO 05/26/25 20:51 Q4HP PRN Fever or Mild Pain (1-3) Hydrocodone Bitart/Acetaminophen 1 tab 04/26/25 20:51 Hydrocodone/Apap 5/325 Mg Tablet PO 05/26/25 20:50 Q6HP PRN Mild to Moderate Pain (1-6) Metronidazole 500 mg in 100 mls @ 100 mls/hr 04/26/25 20:45 Flagyl 500mg/100ml Ivpb IV 05/06/25 20:44 Q8H CHEN Levofloxacin/Dextrose 250 mg in 50 mls @ 100 mls/hr 04/26/25 20:45 Levaquin 250mg/50ml Premix IV 05/06/25 20:44 Q24H CHEN Sodium Chloride 1,000 mls @ 100 mls/hr 04/26/25 21:00 Sod Chlor 0.9% 1000ml Bag IV 05/26/25 20:59 .Q10H CHEN Morphine Sulfate 2 mg 04/26/25 20:51 Morphine 2mg/Ml Syringe IV 05/26/25 20:50 Q4HP PRN Moderate to Severe Pain (4-10) Ondansetron HCl 4 mg 04/26/25 20:52 Ondansetron 4mg/2ml Vial IV 05/26/25 20:51 Q6HP PRN Nausea Discontinued Medications Generic Name Dose Route Start Last Admin Trade Name Freq PRN Reason Stop Dose Admin Sodium Chloride 1,000 mls @ 999 mls/hr 04/26/25 16:31 04/26/25 17:53 Sod Chlor 0.9% 1000ml Bag IV 04/26/25 17:31 Infused .Q1H1M ONE Infusion Sodium Chloride 1,820 mls @ 910 mls/hr 04/26/25 16:54 04/26/25 19:40 Sod Chlor 0.9% 1000ml Bag 30 ml/kg infuse over 2 hr (1820 ml) 04/26/25 18:53 Infused IV Infusion .Q2H ONE Iopamidol 180 ml 04/26/25 18:06 04/26/25 18:08 Iopamidol-370 (76%);100ml Bottle IV 04/26/25 18:07 180 ml ONCE ONE Administration Ketorolac Tromethamine 30 mg 04/26/25 16:31 04/26/25 16:44 Ketorolac 30mg/Ml Vial IV 04/26/25 16:32 30 mg ONCE ONE Administration Morphine Sulfate 4 mg 04/26/25 20:46 04/26/25 20:53 Morphine 4mg/Ml Syringe IV 04/26/25 20:47 4 mg ONCE ONE Administration Ondansetron HCl 4 mg 04/26/25 20:47 04/26/25 20:55 Ondansetron 4mg/2ml Vial IV 04/26/25 20:48 4 mg ONCE ONE Administration Sodium Chloride 10 ml 04/26/25 18:06 04/26/25 18:08 Sodium Chloride 0.9% 10ml Syr (Rad Only) IV 04/26/25 18:07 10 ml ONCE ONE Administration Sodium Chloride 50 ml 04/26/25 18:06 04/26/25 18:08 0.9 % Sodium Chloride 50 Ml Vial IV 04/26/25 18:07 50 ml ONCE ONE Administration ORDERS Category Date Time Status CT abdomen pelvis w con Stat Cat Scan 04/26/25 16:[address] head/brain w con Stat Cat Scan 04/26/25 17:[address] head/brain wo con Stat Cat Scan 04/26/25 17:[address] sinus w con Stat Cat Scan 04/26/25 17:08 Completed CTA Chest [CT angio chest PE protocol] Stat Cat Scan 04/26/25 16:31 Completed Basic Metabolic Panel [facility] Lab 04/27/25 06:00 Ordered CBC [Complete Blood Count Auto Diff] Stat Lab 04/26/25 16:38 Completed Complete Blood Count Auto Diff AMLAB Lab 04/27/25 06:00 Ordered Comprehensive Metabolic Panel Stat Lab 04/26/25 16:38 Completed Full Resp Panel w/COVID ([facility]) Routine Lab 04/26/25 20:51 Ordered Lactic Acid Stat Lab 04/26/25 16:38 Completed Lipase Stat Lab 04/26/25 16:38 Completed Magnesium Stat Lab 04/26/25 16:38 Completed Procalcitonin Stat Lab 04/26/25 16:38 Completed Rapid PCR Covid and Flu A/B Stat Lab 04/26/25 16:20 Completed Trop I [Troponin I] Stat Lab 04/26/25 16:38 Completed Urinalysis and Microscopic Stat Lab 04/26/25 18:24 Completed Blood Culture Stat Micro 04/26/25 17:11 Received Medical Decision Narrative: patient is a 64-year-old female presenting to the emergency department for evaluation of feeling overall bad for 2 months, having taken 4 antibiotics in the last 2 months, cough, nausea, lower abdominal pain, headache but improved. Patient is hemodynamically stable except for tachycardia upon arrival at 140 and nontoxic-appearing upon arrival, afebrile. Differential diagnosis includes sepsis, pneumonia, among others. Workup will be conducted with hematologic labs, specific imaging, provocative tests. Initial inventions include crystalloid bolus, analgesics, antibiotics. Initial workup reviewed by me [hematologic labs are remarkable for white blood cell count of 19.7, CT scan that showed diverticulitis,. Please see formal read for radiology reports. Patient will be admitted to hospital medicine for diverticulitis and sepsis. Patient was Critical Care Critical Care Time Critical Care Time: No
[2025-04-26 16:48] LABS: Hematocrit 39.3 % (37.0-47.0); Hemoglobin 13.6 g/dL (12.2-16.2); Immature Granulocytes % 0.5 %; Mean Corpuscular HGB Conc 34.6 g/dL (31.8-35.4); Mean Corpuscular Hemoglobin 31.9 pg (27.0-31.2); Mean Corpuscular Volume 92.3 fl (81-99); Nucleated Red Blood Cells % 0 %; Platelet Count 320 K/mm3 (142-424); Red Blood Count 4.26 M/mm3 (4.20-5.40); Red Cell Distribution Width-SD 40.4 fL; White Blood Count 19.7 K/mm3 (4.8-10.8)
[2025-04-26 16:55] LABS: Albumin Level 3.8 g/dl (3.5-5.0); Chloride 105 mmol/L (98-107); Potassium 4.6 mmoL/L (3.5-5.1); Sodium 135 mmol/L (136-145)
[2025-04-26 16:58] LABS: Alanine Aminotransferase 60 U/L (12-78); Albumin/Globulin Ratio 1.2 (1.1-1.8); Alkaline Phosphatase 105 U/L (38-126); Anion Gap 12.6 mEq/L (5-15); Aspartate Amino Transferase 53 U/L (14-36); Bilirubin,Total 0.6 mg/dl (0.2-1.3); Blood Urea Nitrogen 14 mg/dl (7-17); Calcium 9.7 mg/dl (8.4-10.2); Carbon Dioxide 22 mmol/L (22.0-30.0); Creatinine Clearance Estimated 55 mL/min (50-200); Creatinine,Serum 0.60 mg/dl (0.52-1.04); Estimated Glomerular Filt Rate 101 ml/min (>60); GFR (African American) 122 ML/MIN (>60); Globulin 3.2 g/dL (1.3-3.2); Glucose 145 mg/dl (74-100); Lipase 63 U/L (23-300); Total Protein,Serum 7.0 g/dl (6.3-8.2)
[2025-04-26 16:59] LABS: Magnesium 1.7 mg/dl (1.6-2.3)
[2025-04-26] MEDS: SODIUM CHLORIDE 910 ML IV (17:02)
[2025-04-26 17:08] LABS: RBC Morphology Normal; Total Cells Counted 100
--- NOTE | 2025-04-26 17:08 | CT_ITS ---
PROCEDURE INFORMATION: Exam: CT Head Without Contrast Exam date and time: 04/26/2025 5:57 PM Age: 64 years old Clinical indication: Pain; Headache TECHNIQUE: Imaging protocol: Computed tomography of the head without contrast. Radiation optimization: All CT scans at this facility use at least one of these dose optimization techniques: automated exposure control; mA and/or kV adjustment per patient size (includes targeted exams where dose is matched to clinical indication); or iterative reconstruction. COMPARISON: CT SINUS WO CON 04/20/2025 10:46 AM FINDINGS: Brain: Normal. No hemorrhage. Unremarkable white matter. No mass effect. Cerebral ventricles: No ventriculomegaly. Paranasal sinuses: Visualized sinuses are unremarkable. No fluid levels. Mastoid air cells: Visualized mastoid air cells are well aerated. Bones: Unremarkable. No acute fracture. Soft tissues: Unremarkable. IMPRESSION: No acute intracranial abnormality.
--- NOTE | 2025-04-26 17:08 | CT_ITS ---
PROCEDURE INFORMATION: Exam: CT Maxillofacial With Contrast, Sinus Exam date and time: 04/26/2025 6:00 PM Age: 64 years old Clinical indication: Face pain; Additional info: Facial pain TECHNIQUE: Imaging protocol: CT Maxillofacial with intravenous contrast. Focus on the sinuses. Radiation optimization: All CT scans at this facility use at least one of these dose optimization techniques: automated exposure control; mA and/or kV adjustment per patient size (includes targeted exams where dose is matched to clinical indication); or iterative reconstruction. Contrast material: ISOVUE; Contrast volume: 100 ml; Contrast route: IV; COMPARISON: CT SINUS WO CON 04/20/2025 10:46 AM FINDINGS: Frontal sinuses: No air-fluid levels. Ethmoid sinuses: No air-fluid levels. Sphenoid sinuses: No air-fluid levels. Maxillary sinuses: No air-fluid levels. Ostiomeatal units are patent. Nasal cavity: Unremarkable. Orbital cavities: Orbits are normal. Globes are unremarkable. Bones: Moderate osteophytosis and degenerative changes involve the right TMJ. Soft tissues: Unremarkable. IMPRESSION: No acute findings.
--- NOTE | 2025-04-26 17:08 | CT_ITS ---
PROCEDURE INFORMATION: Exam: CT Head With Contrast Exam date and time: 04/26/2025 6:00 PM Age: 64 years old Clinical indication: Pain; Headache; Additional info: Headache, sinuspain TECHNIQUE: Imaging protocol: Computed tomography of the head with intravenous contrast. Radiation optimization: All CT scans at this facility use at least one of these dose optimization techniques: automated exposure control; mA and/or kV adjustment per patient size (includes targeted exams where dose is matched to clinical indication); or iterative reconstruction. Contrast material: ISOVUE; Contrast volume: 100 ml; Contrast route: IV; COMPARISON: CT HEAD/BRAIN WO CON 04/26/2025 5:57 PM FINDINGS: Brain: Unremarkable white matter. No mass effect. No abnormal enhancing lesions. Cerebral ventricles: Unremarkable. No ventriculomegaly. No abnormal enhancement. Bones/joints: Unremarkable. No acute fracture. Paranasal sinuses: Visualized sinuses are unremarkable. No fluid levels. Mastoid air cells: Visualized mastoid air cells are well aerated. Soft tissues: Unremarkable. IMPRESSION: No acute intracranial abnormality.
[2025-04-26 17:18] LABS: Troponin I < 0.01 ng/ml (0.00-0.034)
[2025-04-26] MEDS: 0.9 % SODIUM CHLORIDE 50 ML VIAL IV (18:08)
[2025-04-26] MEDS: IOPAMIDOL-370 (76%);100ML BOTTLE 180 ML IV (18:08)
[2025-04-26] MEDS: SODIUM CHLORIDE 0.9% 10ML SYR (RAD ONLY) 10 ML IV (18:08)
[2025-04-26 18:27] LABS: Microscopic, Urine URINE MICROSCOPIC (MICROSCOPIC)
[2025-04-26 18:32] LABS: Bilirubin,Urine Negative (Negative); Color,Urine YELLOW (Yellow); Glucose,Urine (UA) Negative (Negative); Ketones,Urine Negative (Negative); Leukocyte Esterase,Urine Negative (Negative); PH,Urine 6.0 (5.0-8.5); Protein,Urine Negative (Negative); Specific Gravity, Urine <= 1.005 (1.005-1.030); Urobilinogen,Urine 0.2 EU/dl (0.2)
[2025-04-26 18:55] LABS: Squamous Epithelial Cell,Urine Occasional #/hpf (0-5); WBC,Urine Occasional #/hpf (0-3)
[2025-04-26] MEDS: MORPHINE 4MG/ML SYRINGE 4 MG IV (20:53)
[2025-04-26] MEDS: ONDANSETRON 4MG/2ML VIAL 4 MG IV (20:55)
--- NOTE | 2025-04-26 20:56 | P.HP_ITS ---
<Statement entered by Kyle Redmond MD - 04/29/25 15:39> Personally evaluated patient and agree with the plan of care as outlined by the BOILER COVERER. History of Present Illness *Admission Date: 04/26/25 *Reason for visit:: Abdominal pain, shortness of breath and fatigue *History of present illness: This is a very pleasant 64-year-old female with no significant past medical history presents emergency department today with complaints of feeling generally unwell. Patient reports that she has felt unwell for approximately 2 months and has been on 4 different antibiotics (azithromycin x 2, Levaquin and cefdinir) for what was presumed as a sinus infection. States that she has had cough and congestion for several weeks. Also developed low back pain and left lower quadrant pain. Has a history of diverticulitis and states this pain is similar. She denies fever. Has noted to be tachycardic in the 140s upon arrival to the emergency department. Emergency department workup notable for diverticulitis as well as large hiatal hernia. On CT imaging. CT imaging otherwise negative. White blood cell count of 19. COVID flu and RSV negative. This is typically a patient of Dr. Banda's but hospitalist medicine is covering for the group this weekend. Given this, she is admitted to the hospitalist service at this time. [facility] Disclaimer: The information contained in this section may have been updated after the patient was seen, as this information can be updated by other users. Medical History (Updated 04/26/25 @ 20:39 by Milvia Brush (ED), BOILER COVERER) Otitis media Ear problem Hormone replacement therapy Migraine Surgical History History of breast biopsy History of tubal ligation History of tonsillectomy Family History (Updated 11/21/24 @ 13:17 by Mar East RN) Other Dementia Heart disease Social History Smoking Status: Current every day smoker alcohol intake: current alcohol intake frequency: holidays/special occasions only substance use type: denies use current occupational status: employed Travel in the last 8 weeks?: None household members: spouse housing: house Have you lived/traveled outside US in past 30 days?: No Contact w/someone who lives/traveled outside US past 30 days?: No Exposure to someone with infectious disease in past 14 days?: No Do you have a fever (greater than 100.4 F or 38 C)?: No Have you tested positive for COVID-19?: No Exposed to someone with COVID-19 in past 14 days?: No Do you have a sore throat?: No Do you have a cough?: No Do you have any weakness?: No Do you have any diarrhea?: No Are you experiencing any unusual bleeding?: No Do you have any muscle aches/pain?: No Do you have any abdominal pain?: No Are you experiencing loss of taste or smell?: No Other Medical History Have you received the Flu Vaccine for this season: No Have you received the Pneumonia Vaccine: No Review of Systems Review of Systems Review of systems:: pertinent systems reviewed and negative unless documented below Review of systems (narrative): Negative except for HPI Meds Home Medications and Allergies Home Medications ?Medication ?Instructions ?Recorded ?Confirmed ?Type fluticasone propionate 50 1 spray intranasal DAILY #9. 9 mL 03/24/23 11/24/24 Rx mcg/actuation nasal spray,suspension estradiol 0.075 mg/24 hr 1 patch topical WEEKLY 02/1411/24/24 History semiweekly transdermal patch (Trina) progesterone micronized 200 mg 200 mg PO DAILY 4 11/24/24 History capsule New Prescriptions to Start Prescriptions: Allergies Allergy/AdvReac Type Severity Reaction Status Date / Time codeine (CODEINE) Allergy Mild Rash Verified 11/24/24 08:23 erythromycin base Allergy Mild Rash Verified 11/24/24 08:23 (ERYTHROMYCIN BASE) Penicillins (PENICILLINS) Allergy Mild Rash Verified 11/24/24 08:23 tetracycline (TETRACYCLINE) Allergy Mild Rash Verified 11/24/24 08:23 Exam Data for Last 24 hours Vital signs and Labs for Last 24 Hours: Temp Pulse Resp BP Pulse Ox O2 Del Method 98.2 F 118 H 27 H 146/73 H 96 Room Air 04/26/25 16:23 04/26/25 20:30 04/26/25 20:30 04/26/25 20:30 04/26/25 20:30 04/26/25 18:15 Laboratory Results - last 24 hr 04/26/25 16:20: SARS-CoV-2 (PCR) Not detected, Influenza A Untype (PCR) Not detected, Influenza Type B (PCR) Not detected 04/26/25 16:38: WBC 19.7 H, RBC 4.26, Hgb 13.6, Hct 39.3, MCV 92.3, MCH 31.9 H, MCHC 34.6, RDW 12.0, Plt Count 320, MPV 9.1, Neut % (Auto) 80.4 H, Lymph % (Auto) 8.6 L, [place] % (Auto) 10.3 H, Eos % (Auto) 0.1, Baso % (Auto) 0.1, Neut # (Auto) 15.9 H, Lymph # (Auto) 1.7, [place] # (Auto) 2.0 H, Eos # (Auto) 0.0, Baso # (Auto) 0.0, Total Counted 100, Neutrophils % (Manual) 76, Lymphocytes % (Manual) 10, Monocytes % (Manual) 14 H, Platelet Estimate Normal, RBC Morphology Normal, Sodium 135 L, Potassium 4.6, Chloride 105, Carbon Dioxide 22, Anion Gap 12.6, BUN 14, Creatinine 0.60, Estimated Creat Clear 55, Estimated GFR 101, Est GFR ( Amer) 122, Glucose 145 H, Lactate 0.9, Calcium 9.7, Magnesium 1.7, Total Bilirubin 0.6, AST 53 H, ALT 60, Alkaline Phosphatase 105, Troponin I < 0.01, Total Protein 7.0, Albumin 3.8, Globulin 3.2, Albumin/Globulin Ratio 1.2, Lipase 63 04/26/25 18:24: Urine Color Yellow, Urine Appearance Clear, Urine pH 6.0, Ur Specific [place] <= 1.005, Urine Protein Negative, Urine Glucose (UA) Negative, Urine Ketones Negative, Urine Blood 1+ A, Urine Nitrate Negative, Urine Bilirubin Negative, Urine Urobilinogen 0.2, Ur Leukocyte Esterase Negative, Urine RBC 3-5, Urine WBC Occasional, Ur Squamous Epith Cells Occasional, Urine Bacteria None I & O for Last 24 hours: Intake & Output 04/23/25 04/24/25 04/25/25 04/26/25 23:59 23:59 23:59 23:59 Intake Total 2820 / 2820 Balance 2820 / 2820 Weight 60.781 kg Constitutional Constitutional: no acute distress *Routine HEENT Exam Head: Present normocephalic Eye: Present EOMI and PERRL ENT: Present mucous membranes moist *Routine Neck Exam Neck: Present supple; Absent lymphadenopathy *Routine Respiratory Exam Respiratory: Present CTA bilaterally *Routine Cardiovascular Exam Cardiovascular: Present RRR *Routine Abdominal Exam Abdominal: Present soft, normoactive bowel sounds, tenderness (Left lower quadrant tenderness) and guarding (Left lower quadrant); Absent distended, rebound, firm or rigid *Routine Rectal Exam Rectal:: deferred *Routine Genitalia Exam Genitalia:: deferred *Routine Extremities Exam Extremities: Absent cyanosis, clubbing or edema *Routine Skin Exam Skin: Present warm; Absent rash *Routine Neurological Exam Neurological: Present alert and oriented X3 Assessment and Plan *Assessment and plan (1) Sepsis: Status: Acute Category: Medical Code(s): A41.9 - Sepsis, unspecified organism (2) Diverticulitis: Status: Acute Category: Medical Code(s): K57.92 - Diverticulitis of intestine, part unspecified, without perforation or abscess without bleeding Plan #Sepsis Meets criteria for leukocytosis and tachycardia. Received 30 mL/kg bolus in the emergency department. Blood cultures obtained Procalcitonin pending Lactic acid negative CT scan positive for diverticulitis. Continue Flagyl and Levaquin for abdominal coverage #Diverticulitis No evidence of perforation. Large hiatal hernia noted on CT imaging as well Continue maintenance IV fluids Continue broad-spectrum antibiotic coverage with Levaquin and Flagyl Multimodal pain medication as needed Antiemetics as needed #Tachycardia Sinus tachycardia on EKG. Likely secondary to sepsis. Improved after IV fluids. Continue IV fluid administration Continue cardiac tech
--- NOTE | 2025-04-26 21:11 | PC.NURSE ---
Report given to ANGLE Townsend.
--- NOTE | 2025-04-26 21:12 | PC.NURSE ---
2110 Dorys BARBOUR from ER called report on PT. She going to room 219. The ER floats will bring her to the room. KACEY CHAMBERS RN
[2025-04-26 21:31] LABS: Procalcitonin 0.086 ng/mL (0.0-2.0)
[2025-04-26] MEDS: METRONIDAZ/SOD CHL 500 MG/100 ML PIGGYBACK 100 MG IV (22:19)
[2025-04-26] MEDS: 0.9 % SODIUM CHLORIDE 1000ML 1,000 ML 100 ML IV (22:20)
--- NOTE | 2025-04-26 23:19 | EXP.SEPSISRE ---
[facility] Tissue Perfusion Eval Sepsis Re-Evaluation Performed: Yes Date Performed: 04/26/25 Time Performed: 23:19
[2025-04-26] MEDS: TRAZODONE 50MG TABLET 50 MG PO (23:45)
[2025-04-26] MEDS: LEVOFLOXACIN/D5W 250 MG/50 ML PIGGYBACK 100 MG IV (23:51)
[2025-04-27] VITALS: BP 134/50; PULSE 110; PULSE 124; RESP 27; TEMP 37.4; O2SAT 98
--- NOTE | 2025-04-27 00:51 | PC.NURSE ---
Pt's oral temperature @ 99.3 nurse notified at this time.
[2025-04-27] MEDS: ACETAMINOPHEN 1,000MG/100ML VIAL 1000 MG IV (01:01)
[2025-04-27 04:00] VITALS: BP 125/57; PULSE 100; PULSE 109; RESP 28; TEMP 36.9; O2SAT 98; BMI 22.8
--- NOTE | 2025-04-27 04:49 | PC.NURSE ---
Pt arrived to the room via W/C. Pt is alert and oriented X4. Ptwas very pleasant. HR was elevated to 120. Called Trinh Carmona NP in regards to the Elevated HR. Pt spiked at temp of 99.3 over night Trinh Carmona SR. PRICING ANALYST placed order Gave Iv Tylenol per NOV. Pt is on Room Air, She has pain in her Lower Back. Pt received Trazadome 50mg for Sleep at about 3 AM Pt was finally sleeping. NS at 100 Ml/hour is the fluids. Pt is receiving. Continue to follow the care plan. KACEY CHAMBERS RN
[2025-04-27] MEDS: METRONIDAZ/SOD CHL 500 MG/100 ML PIGGYBACK 100 MG IV ×3 (05:17→20:26)
--- NOTE | 2025-04-27 05:21 | PC.NURSE ---
0521 Pt hr is in the 90's now she is resting comfortably. KAECY CHAMBERS RN
[2025-04-27 06:24] LABS: Hematocrit 33.7 % (37.0-47.0); Immature Granulocytes % 0.6 %; Mean Corpuscular HGB Conc 32.9 g/dL (31.8-35.4); Mean Corpuscular Hemoglobin 30.8 pg (27.0-31.2); Mean Corpuscular Volume 93.6 fl (81-99); Nucleated Red Blood Cells % 0 %; Platelet Count 259 K/mm3 (142-424); Red Blood Count 3.60 M/mm3 (4.20-5.40); Red Cell Distribution Width-SD 42.5 fL; White Blood Count 15.5 K/mm3 (4.8-10.8)
[2025-04-27 06:31] LABS: Chloride 114 mmol/L (98-107); Potassium 3.8 mmoL/L (3.5-5.1); Sodium 139 mmol/L (136-145)
[2025-04-27 06:34] LABS: Anion Gap 8.8 mEq/L (5-15); Blood Urea Nitrogen 11 mg/dl (7-17); Carbon Dioxide 20 mmol/L (22.0-30.0); Creatinine Clearance Estimated 55 mL/min (50-200); Creatinine,Serum 0.60 mg/dl (0.52-1.04); Estimated Glomerular Filt Rate 101 ml/min (>60); GFR (African American) 122 ML/MIN (>60)
[2025-04-27 06:35] LABS: Calcium 9.0 mg/dl (8.4-10.2); Glucose 92 mg/dl (74-100)
[2025-04-27 06:38] LABS: Hemoglobin 11.0 g/dL (12.2-16.2)
[2025-04-27 07:31] LABS: Total Cells Counted 100
[2025-04-27 07:32] LABS: RBC Morphology Normal
[2025-04-27 08:00] VITALS: BP 122/58; PULSE 110; PULSE 120; RESP 16; TEMP 36.8; O2SAT 94
[2025-04-27] MEDS: 0.9 % SODIUM CHLORIDE 1000ML 1,000 ML 100 ML IV ×2 (08:33→18:45)
[2025-04-27 08:41] LABS: Adenovirus,PCR Not Detected (NotDetected); Chlamydophila Pneumoniae, PCR Not Detected (NotDetected); Coronavirus 19, PCR Not Detected (NotDetected); Coronovirus HKU1,PCR Not Detected (NotDetected); Influenza A, PCR Not Detected (NotDetected); Influenza AH1, 2009 Not Detected (NotDetected); Influenza AH1, PCR Not Detected (NotDetected); Influenza AH3,PCR Not Detected (NotDetected); Influenza B, PCR Not Detected (NotDetected); Mycoplasma Pneumoniae, PCR Not Detected (NotDetected); Parainfluenza 1, PCR Not Detected (NotDetected); Parainfluenza 2, PCR Not Detected (NotDetected); Parainfluenza 3, PCR Not Detected (NotDetected); Parainfluenza 4, PCR Not Detected (NotDetected)
--- NOTE | 2025-04-27 08:48 | P.PN_ITS ---
Subjective *Date: 04/27/25 *Time: 09:30 Interval history: Patient is feeling somewhat better today. She states she did not sleep well but has sleeping issues all the time. She has less abdominal pain. She has had some nausea but no vomiting. She was able to eat a little bit of breakfast. She is voiding QS. Bowels have not moved in and she has not passed any gas. She has been able to ambulate to the bathroom. She denies chest pain and shortness of breath. Patient's white blood cell count has decreased to 15,500 with a hemoglobin 11 hematocrit 33.7. Blood chemistries show potassium of 3.8 BUN is 11 and creatinine 0.6. Sinus CT shows no acute findings. Chest CT shows a large hiatal hernia. Abdominal pelvis CT reveals acute diverticulitis Patient is is on IV fluids at 100 an hour. She is on antibiotics of Levaquin and metronidazole. Exam Data for Last 24 hours Vital signs and Labs for Last 24 Hours: Temp Pulse Resp BP Pulse Ox O2 Del Method O2 Flow Rate 98.5 F 109 H 28 H 125/57 L 98 Room Air 94 04/27/25 04:00 04/27/25 04:00 04/27/25 04:00 04/27/25 04:00 04/27/25 04:00 04/27/25 07:00 04/26/25 23:00 Laboratory Results - last 24 hr 04/26/25 16:20: SARS-CoV-2 (PCR) Not detected, Influenza A Untype (PCR) Not detected, Influenza Type B (PCR) Not detected 04/26/25 16:38: WBC 19.7 H, RBC 4.26, Hgb 13.6, Hct 39.3, MCV 92.3, MCH 31.9 H, MCHC 34.6, RDW 12.0, Plt Count 320, MPV 9.1, Neut % (Auto) 80.4 H, Lymph % (Auto) 8.6 L, [place] % (Auto) 10.3 H, Eos % (Auto) 0.1, Baso % (Auto) 0.1, Neut # (Auto) 15.9 H, Lymph # (Auto) 1.7, [place] # (Auto) 2.0 H, Eos # (Auto) 0.0, Baso # (Auto) 0.0, Total Counted 100, Neutrophils % (Manual) 76, Lymphocytes % (Manual) 10, Monocytes % (Manual) 14 H, Platelet Estimate Normal, RBC Morphology Normal, Sodium 135 L, Potassium 4.6, Chloride 105, Carbon Dioxide 22, Anion Gap 12.6, BUN 14, Creatinine 0.60, Estimated Creat Clear 55, Estimated GFR 101, Est GFR ( Amer) 122, Glucose 145 H, Lactate 0.9, Calcium 9.7, Magnesium 1.7, Total Bilirubin 0.6, AST 53 H, ALT 60, Alkaline Phosphatase 105, Troponin I < 0.01, Total Protein 7.0, Albumin 3.8, Globulin 3.2, Albumin/Globulin Ratio 1.2, Lipase 63, Procalcitonin 0.086 04/26/25 18:24: Urine Color Yellow, Urine Appearance Clear, Urine pH 6.0, Ur Specific [place] <= 1.005, Urine Protein Negative, Urine Glucose (UA) Negative, Urine Ketones Negative, Urine Blood 1+ A, Urine Nitrate Negative, Urine Bilirubin Negative, Urine Urobilinogen 0.2, Ur Leukocyte Esterase Negative, Urine RBC 3-5, Urine WBC Occasional, Ur Squamous Epith Cells Occasional, Urine Bacteria None 04/27/25 05:24: WBC 15.5 H, RBC 3.60 L, Hgb 11.0 L D, Hct 33.7 L, MCV 93.6, MCH 30.8, MCHC 32.9, RDW 12.2, Plt Count 259, MPV 9.5, Neut % (Auto) 66.0, Lymph % (Auto) 18.3, [place] % (Auto) 13.8 H, Eos % (Auto) 1.1, Baso % (Auto) 0.2, Neut # (Auto) 10.2 H, Lymph # (Auto) 2.8, [place] # (Auto) 2.1 H, Eos # (Auto) 0.2, Baso # (Auto) 0.0, Total Counted 100, Neutrophils % (Manual) 70, Lymphocytes % (Manual) 23, Monocytes % (Manual) 6, Eosinophils % (Manual) 1, Platelet Estimate Normal, RBC Morphology Normal, Sodium 139, Potassium 3.8, Chloride 114 H, Carbon Dioxide 20 L, Anion Gap 8.8, BUN 11, Creatinine 0.60, Estimated Creat Clear 55, Estimated GFR 101, Est GFR ( Amer) 122, Glucose 92 D, Calcium 9.0 I & O for Last 24 hours: Intake & Output 04/24/25 04/25/25 04/26/25 04/27/25 11:59 11:59 11:59 11:59 Intake Total 4310 / 4310 Output Total 0 / 0 Balance 4310 / 4310 Weight 137 lb 5.568 oz Constitutional Constitutional: no acute distress *Routine Respiratory Exam Respiratory: Present CTA bilaterally (Anteriorly and posteriorly) *Routine Cardiovascular Exam Cardiovascular: Present RRR (Heart rate is 90-100.) *Routine Abdominal Exam Abdominal: Present soft and tenderness (All lower quadrants and mid abdomen); Absent normoactive bowel sounds (Diminished bowel sounds), distended or rebound *Routine Extremities Exam Extremities: Absent edema *Routine Neurological Exam Neurological: Present alert and oriented X3 Assessment and Plan *Assessment and plan (1) Sepsis: Status: Acute Category: Medical Code(s): A41.9 - Sepsis, unspecified organism (2) Diverticulitis: Status: Acute Category: Medical Code(s): K57.92 - Diverticulitis of intestine, part unspecified, without perforation or abscess without bleeding (3) Hiatal hernia: Status: Acute Category: Medical Code(s): K44.9 - Diaphragmatic hernia without obstruction or gangrene Plan Continue with IV fluids for now and current antibiotics.
[2025-04-27 12:00] VITALS: BP 140/60; PULSE 110; PULSE 113; RESP 16; TEMP 36.9; O2SAT 96
[2025-04-27 16:00] VITALS: BP 124/64; PULSE 105; RESP 16; TEMP 37; O2SAT 96
[2025-04-27] MEDS: LEVOFLOXACIN/D5W 750 MG/150 ML 750 MG/150 ML PIGGYBACK 100 MG IV (17:11)
[2025-04-27] MEDS: HYDROCODONE/APAP 5/325 MG TABLET 1 TAB PO ×2 (17:15→21:58)
[2025-04-27 20:00] VITALS: BP 132/65; PULSE 100; PULSE 90; RESP 16; TEMP 37.1; O2SAT 95
[2025-04-27] MEDS: TRAZODONE 50MG TABLET 50 MG PO (21:26)
[2025-04-28] VITALS (7 sets, daily range): BP systolic 120–135; BP diastolic 64–76; PULSE 40–120; RESP 15–22; TEMP 36.4–37; O2SAT 92–97; BMI 23.1
--- NOTE | 2025-04-28 03:52 | PC.NURSE ---
Pt is alert and Oriented x4, Pt did take the trazadone for sleep tonight. Also, a pt was c/o pain in her back took meds according to the MAR. will continue to follow the care plan. KACEY CHAMBERS RN
[2025-04-28] MEDS: ACETAMINOPHEN 325MG TAB 650 MG PO (04:01)
[2025-04-28] MEDS: METRONIDAZ/SOD CHL 500 MG/100 ML PIGGYBACK 100 MG IV ×3 (05:32→20:24)
[2025-04-28 06:05] LABS: Hematocrit 32.8 % (37.0-47.0); Hemoglobin 11.1 g/dL (12.2-16.2); Immature Granulocytes % 0.7 %; Mean Corpuscular HGB Conc 33.8 g/dL (31.8-35.4); Mean Corpuscular Hemoglobin 31.4 pg (27.0-31.2); Mean Corpuscular Volume 92.9 fl (81-99); Nucleated Red Blood Cells % 0 %; Platelet Count 275 K/mm3 (142-424); Red Blood Count 3.53 M/mm3 (4.20-5.40); Red Cell Distribution Width-SD 40.1 fL; White Blood Count 13.3 K/mm3 (4.8-10.8)
[2025-04-28 06:15] LABS: Albumin Level 2.8 g/dl (3.5-5.0); Chloride 112 mmol/L (98-107); Potassium 3.9 mmoL/L (3.5-5.1); Sodium 139 mmol/L (136-145)
[2025-04-28 06:18] LABS: Alanine Aminotransferase 48 U/L (12-78); Albumin/Globulin Ratio 1.1 (1.1-1.8); Alkaline Phosphatase 93 U/L (38-126); Anion Gap 10.9 mEq/L (5-15); Aspartate Amino Transferase 51 U/L (14-36); Bilirubin,Total 0.4 mg/dl (0.2-1.3); Blood Urea Nitrogen 11 mg/dl (7-17); Calcium 8.6 mg/dl (8.4-10.2); Carbon Dioxide 20 mmol/L (22.0-30.0); Creatinine Clearance Estimated 57 mL/min (50-200); Creatinine,Serum 0.50 mg/dl (0.52-1.04); Estimated Glomerular Filt Rate 125 ml/min (>60); GFR (African American) 151 ML/MIN (>60); Globulin 2.6 g/dL (1.3-3.2); Glucose 104 mg/dl (74-100); Total Protein,Serum 5.4 g/dl (6.3-8.2)
[2025-04-28] MEDS: 0.9 % SODIUM CHLORIDE 1000ML 1,000 ML 100 ML IV (07:51)
--- NOTE | 2025-04-28 08:21 | P.PN_ITS ---
Subjective *Date: 04/28/25 *Time: 09:06 Interval history: White count has further decreased to 13.3 this morning with a hemoglobin of 11.1 hematocrit of 32.8. Blood chemistries with a sodium of 139 and potassium of 3.9. BUN is 11 and creatinine 0.5. Blood cultures are negative thus far. Patient was able to eat dinner last night but then had some vomiting last night and this morning. She did have a pain pill 1 time for her backache and lower abdominal pain. Bowels have not moved. She is passing flatus. She denies any chest pain or shortness of breath. She is afraid to eat or drink this morning. She has no abdominal pain this morning. She is voiding QS and has been to the bathroom several times. Exam Data for Last 24 hours Vital signs and Labs for Last 24 Hours: Temp Pulse Resp BP Pulse Ox O2 Del Method O2 Flow Rate 98.6 F 100 H 16 135/71 92 L Room Air 94 04/28/25 04:00 04/28/25 04:00 04/28/25 04:00 04/28/25 04:00 04/28/25 04:00 04/28/25 08:00 04/26/25 23:00 Laboratory Results - last 24 hr 04/27/25 08:35: Chlamy pneumoniae PCR Not detected, Adenovirus (PCR) Not detected, B. pertussis DNA (PCR) Not detected, Coronavirus OC43 (PCR) Not detected, Coronavirus HKU1 (PCR) Not detected, Coronavirus 229E (PCR) Not detected, SARS-CoV-2 (PCR) Not detected, Coronavirus NL63 (PCR) Not detected, Human Metapneumovir PCR Not detected, Influenza A (H1) PCR Not detected, Influ A (H1N1/09) PCR Not detected, Influenza A (H3) PCR Not detected, Influenza Type A (PCR) Not detected, Influenza Type B (PCR) Not detected, M. pneumoniae (PCR) Not detected, Parainfluenza 1 (PCR) Not detected, Parainfluenza 2 (PCR) Not detected, Parainfluenza 3 (PCR) Not detected, Parainfluenza 4 (PCR) Not detected, RSV (PCR) Not detected, Entero/Rhino (PCR) Not detected 04/28/25 05:54: WBC 13.3 H, RBC 3.53 L, Hgb 11.1 L, Hct 32.8 L, MCV 92.9, MCH 31.4 H, MCHC 33.8, RDW 11.9, Plt Count 275, MPV 9.1, Neut % (Auto) 73.9, Lymph % (Auto) 13.1, [place] % (Auto) 10.7 H, Eos % (Auto) 1.4, Baso % (Auto) 0.2, Neut # (Auto) 9.9 H, Lymph # (Auto) 1.7, [place] # (Auto) 1.4 H, Eos # (Auto) 0.2, Baso # (Auto) 0.0, Sodium 139, Potassium 3.9, Chloride 112 H, Carbon Dioxide 20 L, Anion Gap 10.9, BUN 11, Creatinine 0.50 L, Estimated Creat Clear 57, Estimated GFR 125, Est GFR ( Amer) 151 D, Glucose 104 H, Calcium 8.6, Total Bilirubin 0.4, AST 51 H, ALT 48, Alkaline Phosphatase 93, Total Protein 5.4 L, Albumin 2.8 L, Globulin 2.6, Albumin/Globulin Ratio 1.1 I & O for Last 24 hours: Intake & Output 04/25/25 04/26/25 04/27/25 04/28/25 11:59 11:59 11:59 11:59 Intake Total 4430 / 4430 3110 / 3110 Output Total 0 / 0 4700 / 4700 Balance 4430 / 4430 -1590 / -1590 Weight 137 lb 5.568 oz 138 lb 11.2 oz Microbiology Reports for the Last 24 Hours: Microbiology 04/26/25 17:11 Blood Blood Culture - Preliminary NO GROWTH AFTER 24 HOURS 04/26/25 17:00 Blood Blood Culture - Preliminary NO GROWTH AFTER 24 HOURS Constitutional Constitutional: no acute distress *Routine Respiratory Exam Respiratory: Present CTA bilaterally (Anteriorly and posteriorly) *Routine Cardiovascular Exam Cardiovascular: Present RRR *Routine Abdominal Exam Abdominal: Present soft and normoactive bowel sounds; Absent tenderness or distended *Routine Extremities Exam Extremities: Absent edema or calf tenderness *Routine Neurological Exam Neurological: Present alert and oriented X3 Assessment and Plan *Assessment and plan (1) Sepsis: Status: Acute Category: Medical Code(s): A41.9 - Sepsis, unspecified organism (2) Diverticulitis: Status: Acute Category: Medical Code(s): K57.92 - Diverticulitis of intestine, part unspecified, without perforation or abscess without bleeding (3) Hiatal hernia: Status: Acute Category: Medical Code(s): K44.9 - Diaphragmatic hernia without obstruction or gangrene Plan Due to nausea/vomiting will continue with IV fluids for now. Oral fluids encouraged.
[2025-04-28] MEDS: ONDANSETRON 4MG/2ML VIAL 4 MG IV (10:25)
[2025-04-28] MEDS: LEVOFLOXACIN/D5W 750 MG/150 ML 750 MG/150 ML PIGGYBACK 100 MG IV (16:54)
--- NOTE | 2025-04-28 18:11 | PC.NURSE ---
pt resting in the chair, Iv c/d/i, call light in reach, no complaints at this time
[2025-04-29] VITALS: BP 131/61; PULSE 94; RESP 16; TEMP 36.8; O2SAT 95
[2025-04-29] MEDS: TRAZODONE 50MG TABLET 50 MG PO (01:50)
[2025-04-29 04:00] VITALS: BP 140/72; PULSE 101; RESP 16; TEMP 36.6; O2SAT 95; BMI 22.7
[2025-04-29] MEDS: METRONIDAZ/SOD CHL 500 MG/100 ML PIGGYBACK 100 MG IV (05:36)
--- NOTE | 2025-04-29 05:44 | PC.NURSE ---
patient rested off and on throughout the night. patient did request PRN medication to help her sleep. No complaints otherwise. Will continue to monitor.
[2025-04-29 07:46] VITALS: BP 140/65; PULSE 108; RESP 16; TEMP 36.5; O2SAT 96
[2025-04-29 08:00] VITALS: PULSE 100
--- NOTE | 2025-04-29 08:34 | P.PN_ITS ---
Subjective *Date: 04/29/25 *Time: 08:34 Interval history: Patient is feeling well this morning. She has no further abdominal pain. She is not able to rest in the hospital and is anxious to go home. She has tolerated a diet. Medical Exam Vital signs and Labs for Last 24 Hours: Vital Signs Temp Pulse Pulse Resp BP Pulse Ox O2 Del Method 04/29/25 08:16 Room Air 04/29/25 08:00 Room Air 04/29/25 07:46 97.7 F 108 H 16 140/65 96 Room Air 04/29/25 06:48 Room Air 04/29/25 05:00 Room Air 04/29/25 04:00 97.8 F 101 H 16 140/72 95 Room Air 04/29/25 03:00 Room Air 04/29/25 01:00 Room Air 04/29/25 00:00 98.2 F 94 H 16 131/61 95 Room Air 04/28/25 23:00 Room Air 04/28/25 21:00 Room Air 04/28/25 20:00 Room Air 04/28/25 19:55 98.0 F 97 H 16 129/64 96 Room Air 04/28/25 18:14 Room Air 04/28/25 17:00 Room Air 04/28/25 16:00 100 H 04/28/25 16:00 97.5 F L 80 22 120/75 97 Room Air 04/28/25 14:46 Room Air 04/28/25 13:00 Room Air 04/28/25 12:46 90 04/28/25 12:00 97.7 F 40 L 15 134/64 96 Room Air 04/28/25 11:00 Room Air Intake and Output 04/28/25 04/29/25 04/29/25 19:59 03:59 11:59 Intake Total 390 / 1070 220 / 1070 460 / 1070 Output Total 1350 / 2050 300 / 2050 400 / 2050 Balance -960 / -980 -80 / -980 60 / -980 Intake: Intake, Oral Amount 140 / 620 120 / 620 360 / 620 Intake, Total IV Amount 250 / 450 100 / 450 100 / 450 Levofloxacin/D5w 750 mg/150 ml 150 / 150 750 mg In 150 ml @ 100 mls/hr IV Q24H [facility] Rx#:[id number] Metronidaz/Sod Chl 500 mg In 100 / 300 100 / 300 100 / 300 100 ml @ 100 mls/hr IV Q8H [facility] Rx#:[id number] Output: Output, Urine Amount 1350 / 0 300 / 2050 400 / 0 Other: Number of Unmeasured Voids 0 0 0 Weight 136 lb 8 oz Patient Weight 04/29/25 11:59 Weight 136 lb 8 oz I & O for Labs for Last 24 Hours: Intake & Output 04/26/25 04/27/25 04/28/25 04/29/25 11:59 11:59 11:59 11:59 Intake Total 4430 / 4430 3410 / 3410 1070 / 1070 Output Total 0 / 0 4700 / 5200 2049 Balance 4430 / 4430 -1290 / -1790 -980 / -980 Weight 137 lb 5.568 oz 138 lb 11.2 oz 136 lb 8 oz Microbiology Reports for the Last 24 Hours: Microbiology 04/26/25 17:11 Blood Blood Culture - Preliminary NO GROWTH AFTER 48 HOURS 04/26/25 17:00 Blood Blood Culture - Preliminary NO GROWTH AFTER 48 HOURS Constitutional: Present no acute distress Respiratory: Present CTA bilaterally Cardiac: Present Reg Rate and Rhythm GI: Present soft and normal bowel sounds; Absent distention or tenderness Extremities: Absent edema, clubbing or cyanosis Skin: Present intact Neuro: Present alert and awake Assessment and Plan *Assessment and plan (1) Sepsis: Status: Acute Category: Medical Code(s): A41.9 - Sepsis, unspecified organism (2) Diverticulitis: Status: Acute Category: Medical Code(s): K57.92 - Diverticulitis of intestine, part unspecified, without perforation or abscess without bleeding (3) Hiatal hernia: Status: Acute Category: Medical Code(s): K44.9 - Diaphragmatic hernia without obstruction or gangrene Plan Patient can likely be discharged home on oral antibiotics today. Will discuss with Dr. Banda.
[2025-04-29 09:55] LABS: Hematocrit 38.3 % (37.0-47.0); Hemoglobin 13.3 g/dL (12.2-16.2); Immature Granulocytes % 0.5 %; Mean Corpuscular HGB Conc 34.7 g/dL (31.8-35.4); Mean Corpuscular Hemoglobin 32.0 pg (27.0-31.2); Mean Corpuscular Volume 92.3 fl (81-99); Nucleated Red Blood Cells % 0 %; Platelet Count 345 K/mm3 (142-424); Red Blood Count 4.15 M/mm3 (4.20-5.40); Red Cell Distribution Width-SD 39.7 fL; White Blood Count 10.0 K/mm3 (4.8-10.8)
--- NOTE | 2025-04-30 11:47 | SW/DCPLANNER ---
Spoke with patient on the phone. Patient stated that she is doing good. Patient stated that she is aware of her upcoming appointment. Patient stated that she was able to get her new medicine picked up from clinic pharmacy. Patient stated that she has no concerns or questions at this time. Andra Saldana
== END 2025-04-29 10:36 | disposition home or self-care (01) | DRG 872 ==
LOC: ER 20:39 → 2ND 04-27 06:10
PROVIDERS: Nurse Practitioner; Nurse Practitioner Acute Care; Admitting Provider Family Medicine; Emergency Provider Student in an Organized Health Care Education/Training Program; PCP Family Medicine; Visit Provider Family Medicine
DX: A41.9 Sepsis, unspecified organism (principal); K57.92 Diverticulitis of intestine, part unspecified, without perforation or abscess without bleeding; K44.9 Diaphragmatic hernia without obstruction or gangrene; F17.200 Nicotine dependence, unspecified, uncomplicated; Z88.0 Allergy status to penicillin; Z88.5 Allergy status to narcotic agent; Z88.1 Allergy status to other antibiotic agents; Z79.899 Other long term (current) drug therapy
CPT/HCPCS: 0223U; 36415; 70450; 70460; 70487; 71275; 74177; 80048; 80053; 81001; 83605; 83690; 83735; 84145; 84484; 85007; 85025; 87040; 87636; 93005; 99284; J0131; J1836; J1885; J1956; J2270; J2405; J7030; Q9967

== ENCOUNTER 2025-05-06 11:14 | Outpatient (CLI) | payer BC, SELFPAY | END 2025-05-06 23:59 | disposition home or self-care (01) | LOC: RT 11:14 | PROVIDERS: PCP Family Medicine; Visit Provider Physician Assistant | DX: R00.0 Tachycardia, unspecified (principal); R94.31 Abnormal electrocardiogram [ECG] [EKG]; R00.2 Palpitations | CPT/HCPCS: 93225; 93227 ==

== ENCOUNTER 2025-05-11 13:25 | Outpatient (CLI) | payer BC, SELFPAY ==
--- OUTSIDE RECORDS SUMMARY | 2025-03-27 05:00 | XMS_ITS ---
Author Organization [facility] Address [address] [facility] [address] [place] [phone] Care Team Providers Care Panel Machine Setter Name Role Phone Arlyn Banda Primary Care Provider [phone] Julia Arevalo Unavailable [phone] Halley Erazo Unavailable [phone] Allergies Allergen (clinical drug ingredient) Drug/Non Drug [...] review and pick correct strength-formulat ion from K[employer]q options. If intended option is not shown, discontinue and re-order from Quick Search* 11/13/2020 Not-Taking CareTouch CPAP & BIPAP Hose 1 DIRECTED *Please review and pick correct strength-formulat ion from K[employer]q options. If intended option is not shown, discontinue and re-order from Quick Search* Not-Taking PROBIOTICS P.O. DAILY *Please review for potential replacement for e-prescription and drug interaction check* Not-Taking Meloxicam 7.5 MG 1 tab(s) orally once a day prn Not-Taking Vitamin A & D 44152-472 UNIT as directed Orally Not-Taking Vitamin B12 [...] a day; Duration: 7 days 03/27/2025 Active Tjuawbtp-Gcqbhxjxe-WB 2-30-10 MG/5ML 5-10 mL Orally 4 times a day, prn Active Vital Signs Blood pressure systolic 114 mm Hg 03/27/20 25 Blood pressure diastolic 70 mm Hg 025 Heart Rate 98 /min 03/27/2025 Height 65 in 03/27/2025 Weight 137.6 lbs 03/27/2025 BMI 22.9 kg/m2 03/27/2025 Encounters Encounter Location Date Provider Diagnosis [facility] [address] [facility] [address] [place] [phone] 03/27/2025 Halley Erazo Acute URI J06.9 and [...] Once a day; Duration: 7 days 03/27/2025 Uzfbmhsd-Amltbmejj-NB 2-30-1 0 MG/5ML 5-10 mL Orally 4 times a day, prn Next Appt Details Follow Up: prn, Reason: Provider Name:Halley Olivares y, 05/13/2025 10:00:00 AM, [address] [facility] [address] [facility], [address] , [place], [place], [id number], Progress Notes * WOODYGONZALES MORRISMADONNAOB:1960 (65 yo F)Acc No.[id number]:03/27/2025 Progress Notes Patient: JUANJOSE LOW Provider: FILOMENA Hewitt :1960 A ge:64 Y S ex:Female Date:03/27/2025 Address:[address] [place] [address], [place], [place] Pcp:Arlyn Banda Subjective: * Chief Complaints: [...] bedtime Orally Once a day , Taking Wceblmep-Oovwoauww-SZ 2-30-10 MG/5ML Syrup 5-10 mL Orally 4 [...] day , Not-Taking Vitamin A & D 36125-175 UNIT Tablet as directed Orally , Not-Taking [...] *Please review and pick correct strength-formulation from [employer] options. If intended option is not shown, discontinue and re-order from Quick Search*, Not-Taking CareTouch CPAP & BIPAP Hose MACHINE AND SUPPLIES 1 DIRECTED , Notes to Pharmacist: *Please review and pick correct strength-formulation from [employer] options. If intended option is not shown, [...] URI - J06.9 (Primary) 2 . B [place] 22.0-22.9, adult - Z68.22 ? Plan: * [...] Procedure Codes: 3 6416 CAPILLARY BLOOD DRAW, 24495 CBC WITH AUTO DIFF, 1036F TOBACCO NON-USER, 3074F SYST BP LT 130 MM HG, 3078F DIAST BP < 80 MM HG * Follow Up: p rn * Images: Billing Information: * Visit Code: 17935 Office Visit, Est Pt., Level 3. * Procedure Codes: 17335 CAPILLARY BLOOD DRAW. 53589 CBC WITH AUTO DIFF. 1036F TOBACCO NON-USER. 3074F SYST BP LT 130 MM HG. 3078F DIAST BP < 80 MM HG. * Electronic signature of FILOMENA Coles on 05/11/2025 at 01:27 PM EDT Sign off status: Pending * Provider: FILOMENA Hewitt Date: 0 03/27/2025 Generated for Renetta aviles/Teresa/Amrit on: 0 05/11/2025 01:27 PM EDT History and Physical Notes * HPI (History [...]
--- OUTSIDE RECORDS SUMMARY | 2025-04-09 09:45 | XMS_ITS ---
Author Organization [facility] Address [address] [facility] [address] [facility] [address] [place] [id number] Care Team Providers Care Disbursement Clerk Name Role Phone Arlyn Banda Primary Care Provider [phone] Julia Arevalo [phone] Allergies Allergen (clinical drug ingredient) Drug/Non Drug [...] Duration: 30 days 04/09/2025 Active Vital Signs Blood pressure systolic 110 mm Hg 04/09/20 25 Blood pressure diastolic 70 mm Hg 025 Heart Rate 88 /min 04/09/2025 Height 65 in 04/09/2025 Weight 135.2 lbs 04/09/2025 BMI 22.5 kg/m2 04/09/2025 Encounters Encounter Location Date Provider Diagnosis [facility] [address] [facility] [address] [facility] [address] [place] [id number] 04/09/2025 Arlyn Banda Acute sinusitis, recurrence not [...] Details Follow Up: 2 Weeks, Reason: Provider Name:Halley chi, 05/13/2025 10:00:00 AM, [address] [facility] 36 [facility], [address] , [place], [place], [id number], Progress Notes * NAILA BARRONOB:1960 (65 yo F)Acc No.[id number]:04/09/2025 Progress Notes Patient: JUANJOSE LOW Provider: Arlyn Banda M.D. :1960 A ge:64 Y S ex:Female Date:04/09/2025 Address:[address] [place] [id number] Subjective: * Chief Complaints: * 1 . [...] bedtime Orally Once a day , Discontinued Qwuyiiug-Xbojxifcq-DH 2-30-10 MG/5ML Syrup 5-10 mL Orally 4 [...] day , Discontinued Vitamin A & D 36841-200 UNIT Tablet as directed Orally , Discontinued [...] - J01.90 (Primary) ? 2 . B [place] 22.0-22.9, adult - Z68.22 Plan: * Treatment: * Procedure Codes: 1 036F TOBACCO NON-USER, 3074F SYST BP LT 130 MM HG, 3078F DIAST BP < 80 MM HG * Follow Up: 2 Weeks * Images: Billing Information: * Visit Code: 10573 Office Visit, Est Pt., Level 3. * Procedure Codes: 1036F TOBACCO NON-USER. 3074F SYST BP LT 130 MM HG. 3078F DIAST BP < 80 MM HG. * Electronic signature of Arlyn Banda MD on 05/11/2025 at 01:28 PM EDT Sign off status: Pending * Provider: Arlyn Banda M.D. Date: 0 04/09/2025 Generated for Lexiii traci/Teresa/eTransmitting on: 0 05/11/2025 01:28 PM EDT History and Physical Notes * [...]
--- OUTSIDE RECORDS SUMMARY | 2025-04-23 05:30 | XMS_ITS ---
Author Organization [facility] Address [address] [place] [id number] Care Team Providers Care Mrp Controller Name Role Phone Arlyn Banda Primary Care Provider Julia Arevalo Unavailable [phone] Halley Erazo Unavailable [phone] Allergies Allergen (clinical drug ingredient) Drug/Non Drug [...] Interpretation: Performing Lab: Notes/Report: Test performed by [email or web address] [address] [place] [address] , [address], [place] [address] Dell Wilder MD, School Attendance Secretary CLIA: [id number] Vitamin B12 [phone] pg/mL P-Comprehensive Metabolic Pa michael (CMP) Reviewed date:04/29/2025 01:21:29 PM Interpretation: Performing Lab: Notes/Report: Test performed by [facility] [address] [place] [address] , [address], [place] [address] Dell Wilder MD, School Attendance Secretary CLIA: [id number] Sodium 141 135-145 mmol/L Potassium 4.8 3.5-5.3 [...] Interpretation: Performing Lab: Notes/Report: Test performed by [facility] [address] [place] [address] , [place] [address] Dell Wilder MD, School Attendance Secretary CLIA: [id number] Jensen Ochoa Virus (EBV) VCA Antibodies IgG 7.3 <0.9 AI Jensen Ochoa Virus (EBV) VCA Antibodies IgM <0.2 <0.9 AI P-T4 Free (thyroxine) Reviewed date:04/29/2025 01:21:29 PM Interpretation: Performing Lab: Notes/Report: Test performed by [facility] [address] [place] [address] , [place] [address] Dell Wilder MD, School Attendance Secretary CLIA: [id number] Thyroxine Free (free T4) 5.79 0.86-1.76 ng/dL P-TSH reflex to FT4 Reviewed date:04/29/2025 01:21:29 PM Interpretation: Performing Lab: Notes/Report: Test performed by [facility] [address] [place] [address] , [address], [place] [address] Dell Wilder MD, School Attendance Secretary CLIA: [id number] TSH reflex to FT4 <0.005 0.43-5.25 mU/L P-Vitamin D 25-Hydroxy Reviewed date:04/29/2025 01:21:29 PM Interpretation: Performing Lab: Notes/Report: Test performed by [facility] [address] [place] [address] , [address], [place] [address] Dell Wilder MD, School Attendance Secretary CLIA: [id number] Vitamin D 25-Hydroxy 34.1 30.0-100.0 ng/mL Interpretation [...] Insomnia disorder related to another mental disorder (41447153) Psychophysiological insomnia (F51.04) Active confirmed Vital Signs Blood pressure systolic 118 mm Hg 04/23/20 25 Blood pressure diastolic 66 mm Hg 025 Heart Rate 101 /min 04/23/2025 Height 65 in 04/23/2025 Weight 134.2 lbs 04/23/2025 BMI 22.33 kg/m2 04/23/2025 Encounters Encounter Location Date Provider Diagnosis [facility] [address] [facility] [address] [place], [place] [id number] 04/23/2025 Halley Erazo Acute sinusitis, rec urrence [...] to repo rt test results, Reason: Provider Name:Halley Olivares y, 05/13/2025 10:00:00 AM, [address] [facility] [address] [facility], [address], [place], [place], [id number], Progress Notes * NAILA BARRONOB:1960 (65 yo F)Acc No.[id number]:04/23/2025 Progress Notes Patient: JUANJOSE LOW Provider: FILOMENA Hewitt :1960 A ge:64 Y S ex:Female Date:04/23/2025 Address:[address] [place] [address], [place] [id number] Pcp:Arlyn Banda Subjective: * Chief Complaints: * [...] easonal allergies - J30.2 5 . B OH 22.0-22.9, adult - Z68.22 Plan: * Treatment: [...] AM)* Value Reference Range V itamin B12 [phone] - pg/mL * Halley Erazo Victorino 04/23/2025 0 9:53:31 AM EDT >room 10, purple Inpatient labs reviewed at [facility] ?LAB: P-Comprehensive Metabolic Panel (CMP) (Collection Date [...] >room 10, purple Inpatient labs reviewed at [facility] ?LAB: P-Jensen Ochoa Virus (EBV) VCA Antibodies IgG IgM (Collection Date & Time - 04/23/2025 09:05 AM)* Value Reference Range E pstein Ochoa Virus (EBV) VCA Antibodies IgG 7.3 H <0.9 - AI * E pstein Ochoa Virus (EBV) VCA Antibodies IgM <0.2 <0.9 - AI * Halley Erazo Victorino 04/23/2025 0 9:53:31 AM EDT >room 10, purple Inpatient labs reviewed at [facility] ?LAB: P-TSH reflex to FT4 (Collection Date & Time - 04/23/2025 09:05 AM)* Value Reference Range T SH reflex to FT4 <0.005 L 0.43-5.25 - mU/L * Kacey Halley Victorino 04/23/2025 0 9:53:31 AM EDT >room 10, purple Inpatient labs reviewed at [facility] ?LAB: P-Vitamin D 25-Hydroxy (Collection Date & Time - 04/23/2025 09:05 AM) * Value Reference Range V itamin D 25-Hydroxy 34.1 30.0-100.0 - ng/mL * Halley Erazo 04/23/2025 0 9:53:31 AM EDT >room 10, purple Inpatient labs reviewed at [facility] 3.?Psychophysiological insomnia? Start hydrOXYzine HCl Tablet, 25 [...] 5.79 H 0.86-1.76 - ng/d L * [facility], IT support 04/28/2025 02:25:07 : This order was created by the Interface. Inpatient labs reviewed at [facility] * Procedure Codes: 8 5025 CBC WITH AUTO DIFF, 3074F SYST BP LT 130 MM HG, 3078F DIAST BP < 80 MM HG * Follow Up: v ia phone to report test results * Images: Billing Information: * Visit Code: 93481 Office Visit, Est Pt., Level 4. * Procedure Codes: 30029 CBC WITH AUTO DIFF. 3074F SYST BP LT 130 MM HG. 3078F DIAST BP < 80 MM HG. * Electronic signature of FILOMENA Coles on 05/11/2025 at 01:28 PM EDT Sign off status: Pending * Provider: FILOMENA Hewitt Date: 0 04/23/2025 Generated for Renetta ng/Faoleksandr/eTransmitting on: 0 05/11/2025 01:28 PM EDT History [...]
--- OUTSIDE RECORDS SUMMARY | 2025-05-06 06:15 | XMS_ITS ---
Author Organization [facility] Address [address] [place] [id number] Care Team Providers Care Dewer Name Role Phone Arlyn Banda Primary Care Provider Julia Arevalo Unavailable [phone] Halley Erazo Unavailable [phone] Allergies Allergen (clinical drug ingredient) Drug/Non Drug [...] Interpretation:Normal Performing Lab: Notes/Report: Test performed by [facility] [address] [place] [address] , [address], [place] [address] Dell Wilder MD, Backhoe Operator CLIA: [id number] Sodium 140 135-145 mmol/L Potassium 5.2 3.5-5.3 [...] Interpretation:6.69 Performing Lab: Notes/Report: Test performed by [facility] [address] [place] [address] , [address], [place] [address] Dell Wilder MD, Backhoe Operator CLIA: [id number] Thyroxine Free (free T4) 6.69 0.86-1.76 ng/dL P-TSH reflex to FT4 Reviewed date:05/07/2025 05:08:51 PM Interpretation:<0.005 Performing Lab: Notes/Report: Test performed by [facility] [address] [place] [address] , [address], [place] [address] Dell Wilder MD, Backhoe Operator CLIA: [id number] TSH reflex to FT4 <0.005 0.43-5.25 mU/L Reason For Referral Diagnosis 1 Hiatal hernia (K44.9 ) Referral Organization [facility] Referring Provider First Name Halley Referring Provider Last Name Kacey Referring Provider Speciality Physician Setter Out Referred Provider Specialty General Surg april General Notes Pt needs an appt [facility] [address] [facility] Brynn 05/06/2025 01:38:51 PM > 05/12/2025 at 09:15am; patient informed Referral Priority Routine REASON FOR VISIT [facility] discharge f/u Medications Medication SIG (Take, Route, [...] 05/06/2025 Encounters Encounter Location Date Provider Diagnosis [facility] [address] [place] [id number] 05/06/2025 Halley Erazo Diverticulitis K57.9 2 ; Palpitations R00.2 and [...] list reconciled. Appropriate counseling provided. Moderate Complexity Pending Test Test Name Order Date Holter Monitor- 48 hour 05/06/2025 Referrals Referral Date Details 05/06/2025 05/06/2025 Next Appt Details Follow Up: 1 Week, Reason: Provider Name:Halley chi, 05/13/2025 10:00:00 AM, [address], [address], [place], [id number], Progress Notes * NAILA BARRONOB:1960 (65 yo F)Acc No.[id number]:05/06/2025 Patient: JUANJOSE LOW Provider: FILOMENA Hewitt :1960 A ge:65 Y S ex:Female Date:05/06/2025 Address:[address], [place], [id number] Pcp:Arlyn Banda Subjective: * Chief Complaints: * 1 . [facility] discharge f/u. * HPI: H PI: Patient is here today for A Transition of Care Visit. Discharge from the following Facility: admitted to [facility] 04/26/2025 for Sepsis and Diverticulitis, Discharge [...] phone encounter ?Imaging: Holter Monitor- 48 hour Notes: HR is elevated today. Will check [...] 6.69 H 0.86-1.76 - ng/d L * [facility], IT support 05/07/2025 08:35:05 : This order was created by the Interface. Anita Jaimes 05/07/2025 05:08:44 PM EDT > See phone encounter * Procedure Codes: 9 9495 TRANS CARE MGMT 14 DAY DISCH, 1111F DSCHR MED/CURENT MED MERGE, 93204 CBC WITH AUTO DIFF, 84378 VENIPUNCT, ROUTINE* * Follow Up: 1 Week * Images: Billing Information: * Visit Code: 04286 Office Visit, Est Pt., Level 4. * Procedure Codes: 14158 TRANS CARE MGMT 14 DAY DISCH. 1111F DSCHR MED/CURENT MED MERGE. 71794 CBC WITH AUTO DIFF. 11874 VENIPUNCT, ROUTINE*. * Electronic signature of FILOMENA Coles on 05/11/2025 at 01:28 PM EDT Sign off status: Pending * Provider: FILOMENA Hewitt Date: 0 05/06/2025 Generated for Printi ng/Faxing/eTransmitting on: 0 05/11/2025 01:28 PM EDT History and Physical Notes * HPI (History of Present Illness) Category Sub-Category Detail Notes Category Not es HPI Patient is here today for A [facility] sition of Care Visit. Discharge from the following Facility: admitted to [facility] 04/26/2025 for Sepsis and Diverticulitis, Discharge [...]
--- OUTSIDE RECORDS SUMMARY | 2025-05-08 09:00 | XMS_ITS ---
Author Organization [facility] Address [address] [place] [id number] Care Team Providers Care Change Room Attendant Name Role Phone Arlyn Banda Primary Care Provider Julia Arevalo Unavailable [phone] Halley Erazo Unavailable [phone] Results Component Value Reference Range Notes P-Thyroid Antibody Panel (TA BS) (Not yet reviewed by provider) Interpretation: Performing Lab: Notes/Report: Test performed by [facility], [address] , [address], [place] [address] Dell Wilder MD, Web Systems Developer CLIA: [id number] Thyroid Peroxidase Antibody <9 <9-34 IU/mL An [...] methods or kits cannot be directly compared. CBC Fingerstick (in house) Reviewed date:05/08/2025 05:38:31 [...] - 38 plat 580 100 - 400 REASON FOR VISIT blood work Vital Signs Height 65 in 05/08/2025 Encounters Encounter Location Date Provider Diagnosis [facility] [address] [place] [id number] 05/08/2025 Halley Erazo Palpitations R00.2 Assessments Encounter Date Diagnosis (ICD Code) Assessment Notes Treatment Notes Treatment Clinical Notes Section Notes 05/08/2025 Palpitations (ICD-10 - R00.2) Plan Of Treatment Pending Test Test Name Order Date P-Thyroid Antibody Panel (TABS) 05/08/20 25 Next Appt Details Provider Name:Halley Olivares y, 05/13/2025 10:00:00 AM, [address], [address], [place], [phone], Progress Notes * TAMIKAGONZALES MORRISMADONNAOB:1960 (65 yo F)Acc No.[id number]:05/08/2025 Patient: JUANJOSE LOW Provider: FILOMNEA Hewitt :1960 A ge:65 Y S ex:Female Date:05/08/2025 Address:[address] [place] [address], [id number] Pcp:Arlyn Banda Subjective: * Chief [...] hyroglobulin Antibody >4000 H <10-115.0 - IU/mL ?LAB: CBC Fingerstick (in house) (Collection Date [...] Reyna 05/08/2025 03:03:3 1 PM EDT >Halley Eraoz 05/08/2025 05:38:29 PM EDT > * Procedure Codes: 3 6416 CAPILLARY BLOOD DRAW * Images: Billing Information: * Visit Code: * Procedure Codes: 50187 CAPILLARY BLOOD DRAW. * Electronic signature of FILOMENA Coles on 05/11/2025 at 01:27 PM EDT Sign off status: Pending * Provider: FILOMENA Hewitt Date: 05/08/2025 Generated for Renetta aviles/Teresa/Caridaditting on: 05/11/2025 01:27 PM EDT
--- OUTSIDE RECORDS SUMMARY | 2025-05-11 13:29 | XMS_ITS | Patient Health Record ---
Author Organization [facility] Address [address] [place] [id number] Care Team Providers Care Manager Retail Name Role Phone Arlyn Banda Primary Care Provider [phone] Julia Arevalo Unavailable [phone] Nader Mcknight Unavailable [phone] Sagrario Da Silva Unavailable [phone] Halley Erazo Unavailable [phone] Allergies Allergen (clinical drug ingredient) Drug/Non Drug [...] - 38 plat 201 100 - 400 CBC Fingerstick (in house) Reviewed date:03/27/2025 04:09:31 [...] - 38 plat 233 100 - 400 CT Scan : Sinuses, without c ontrast Reviewed date:04/28/2025 09:25:17 AM Interpretation:mild mucoperiosteal thickening Performing Lab: Notes/Report: mild mucoperiosteal thickening CBC Venipuncture (in house) Reviewed date:04/23/2025 01:17:48 [...] Interpretation: Performing Lab: Notes/Report: Test performed by [facility] [address] [place], [place] [address] , [address], [place] [address] Dell Wilder MD, Application Security Developer CLIA: [id number] Vitamin B12 156 424-3935 pg/mL P-Comprehensive Metabolic Pa michael (CMP) Reviewed date:04/29/2025 01:21:29 PM Interpretation: Performing Lab: Notes/Report: Test performed by [facility] [address] [place] [address] , [address], [place] [address] Dell Wilder MD, Application Security Developer CLIA: [id number] Sodium 141 135-145 mmol/L Potassium 4.8 3.5-5.3 [...] Interpretation: Performing Lab: Notes/Report: Test performed by [facility] [address] , [place] [address] Dell Wilder MD, Application Security Developer CLIA: [id number] Jensen Ochoa Virus (EBV) VCA Antibodies IgG 7.3 <0.9 AI Jensen Ochoa Virus (EBV) VCA Antibodies IgM <0.2 <0.9 AI P-T4 Free (thyroxine) Reviewed date:04/29/2025 01:21:29 PM Interpretation: Performing Lab: Notes/Report: Test performed by [facility] [address] , [facility] [place] [address] Dell Wilder MD, Application Security Developer CLIA: [id number] Thyroxine Free (free T4) 5.79 0.86-1.76 ng/dL P-TSH reflex to FT4 Reviewed date:04/29/2025 01:21:29 PM Interpretation: Performing Lab: Notes/Report: Test performed by [facility] [address] , [place] [address] Dell Wilder MD, Application Security Developer CLIA: [id number] TSH reflex to FT4 <0.005 0.43-5.25 mU/L P-Vitamin D 25-Hydroxy Reviewed date:04/29/2025 01:21:29 PM Interpretation: Performing Lab: Notes/Report: Test performed by [facility] [address] [place] [address] , [place] [address] Dell Wilder MD, Application Security Developer CLIA: [id number] Vitamin D 25-Hydroxy 34.1 30.0-100.0 ng/mL Interpretation of Vitamin D 25 OH: < 20 ng/mL - Deficiency 20 - 29 ng/mL - Insufficiency 30 - 100 ng/mL - Sufficiency > 100 ng/mL - Super-therapeutic- toxicity may occur above this level. Clinical correlation required. CBC Venipuncture (in house) Reviewed date:05/06/2025 11:13:33 [...] Interpretation:Normal Performing Lab: Notes/Report: Test performed by [facility] [address] [place] [address] , [address], [place] [address] Dell Wilder MD, Application Security Developer CLIA: [id number] Sodium 140 135-145 mmol/L Potassium 5.2 3.5-5.3 [...] Interpretation:6.69 Performing Lab: Notes/Report: Test performed by [facility] [address] [place] [address] , [address], [place] [address] Dell Wilder MD, Application Security Developer CLIA: [id number] Thyroxine Free (free T4) 6.69 0.86-1.76 ng/dL P-TSH reflex to FT4 Reviewed date:05/07/2025 05:08:51 PM Interpretation:<0.005 Performing Lab: Notes/Report: Test performed by [facility] [address] [place] [address] , [address], [place] [address] Dell Wilder MD, Application Security Developer CLIA: [id number] TSH reflex to FT4 <0.005 0.43-5.25 mU/L P-Thyroid Antibody Panel (TA BS) (Not yet reviewed by provider) Interpretation: Performing Lab: Notes/Report: Test performed by [facility] [address] [place] [address] , [address], [place] [address] Dell Wilder MD, Application Security Developer CLIA: [id number] Thyroid Peroxidase Antibody <9 <9-34 IU/mL An [...] - 38 plat 580 100 - 400 H-CBC Reviewed date:04/29/2025 01:21:29 PM Interpretation: Performing Lab: Notes/Report: WBC 10.0 4.8-10.8 K/mm3 RBC 4.15 4.20-5.40 M/mm3 HGB 13.3 12.2-16.2 g/dL HCT 38.3 37.0-47.0 % MCV 92.3 81-99 fl MCH 32.0 27.0-31.2 pg MCHC 34.7 31.8-35.4 g/dL RDW-SD 39.7 RDW 11.7 11.5-17.5 % PLT 345 142-424 K/mm3 Delta: 275 on 04/28/25-0554 MPV 9.3 7.4-10.4 fl NE% 69.5 37.0-80.0 % LY% 18.5 10-50 % MO% 10.0 1.7-9.3 % EO% 1.3 0.1-12.0 % BA% 0.2 0.1-2.0 % NRBC% 0 IG% 0.5 NE# 7.0 1.8-7.8 K/mm3 LY# 1.9 0.7-4.5 K/mm3 MO# 1.0 0.1-1.0 K/mm3 EO# 0.1 0.0-0.4 Kmm3 BA# 0.0 0-0.2 K/mm3 NRBC# 0 IG# 0.05 Pathology evaluation Reviewed date:11/28/2024 05:29:41 PM Interpretation:Negative Performing Lab: Notes/Report: Negative H-CBC Reviewed date:04/28/2025 09:25:17 AM Interpretation: Performing Lab: Notes/Report: WBC 13.3 4.8-10.8 K/mm3 RBC 3.53 4.20-5.40 M/mm3 HGB 11.1 12.2-16.2 g/dL HCT 32.8 37.0-47.0 % MCV 92.9 81-99 fl MCH 31.4 27.0-31.2 pg MCHC 33.8 31.8-35.4 g/dL RDW-SD 40.1 RDW 11.9 11.5-17.5 % PLT 275 142-424 K/mm3 MPV 9.1 7.4-10.4 fl NE% 73.9 37.0-80.0 % LY% 13.1 10-50 % MO% 10.7 1.7-9.3 % EO% 1.4 0.1-12.0 % BA% 0.2 0.1-2.0 % NRBC% 0 IG% 0.7 NE# 9.9 1.8-7.8 K/mm3 LY# 1.7 0.7-4.5 K/mm3 MO# 1.4 0.1-1.0 K/mm3 EO# 0.2 0.0-0.4 Kmm3 BA# 0.0 0-0.2 K/mm3 NRBC# 0 IG# 0.09 H-CMP Reviewed date:04/28/2025 09:25:17 AM Interpretation: Performing Lab: Notes/Report: NA 139 136-145 mmol/L K 3.9 3.5-5.1 mmoL/L CL 112 98-107 mmol/L CO2 20 22.0-30.0 mmol/L GAP 10.9 5-15 mEq/L BUN 11 7-17 mg/dl CREATT 0.50 0.52-1.04 mg/dl CRCLE 57 50-200 mL/min GFRAA 151 >60 ML/MIN Delta: 122 on 0 04/27/25 EGFR 125 >60 ml/min GLU 104 74-100 mg/dl CA 8.6 8.4-10.2 mg/dl BILIT 0.4 0.2-1.3 mg/dl AST 51 14-36 U/L ALT 48 12-78 U/L TP 5.4 6.3-8.2 g/dl ALB 2.8 3.5-5.0 g/dl GLOB 2.6 1.3-3.2 g/dL AGRATIO 1.1 1.1-1.8 ALP 93 38-126 U/L Medications Medication SIG (Take, Route, Frequency, Duration) Notes Start Date End Date Status levoFLOXacin 500 MG 1 tablet Orally Once a day; Duration: 5 days 05/06/2025 Active metroNIDAZOLE 500 MG 1 [address] ee times a day; Duration: 5 days 05/06/2025 Active Metoprolol Succinate ER 25 MG 1/2 tab Orally Once a day; Duration: 30 days 05/08/2025 Active Immunizations Vaccine Route Administration Date Status Comme nts COVID 19 Moderna Unknown 11/17/2020 Administered COVID 19 Moderna Unknown 12/15/2020 Administered DT, 7 YEARS OR OLDER Unknown 11/05/1996 Administered Fluzone Quad (6months&older) IM Intramuscular 07/04/2018 Administered Fluzone Quad (6months&older) Unknown 06/24/2019 Administered Fluzone Quad (6months&older) IM Intramuscular 05/10/2021 Administered Hepatitis A (adult) Unknown 08/13/2018 Administered Hepatitis B (20 and more) Unknown 08/13/2018 Administer ed Hepatitis B (20 and more) Unknown 09/17/2018 Administer ed Problems Problem Type SNOMED Code ICD Code Onset Dates Problem Status W/U Status Risk Notes Problem Diverticulitis (93425590) Diverticulitis (K57.92) Active confirmed Problem Seasonal allergy (557653303) Seasonal allergies (J30.2) Active confirmed Problem Sciatic nerve lesion (018147469) Piriformis syndrome of right side (G57.01) Active confirmed Problem Hyperthyroidism (25572738) Hyperthyroidism (E05.90) Active confirmed Problem Acute constipation (747277725) Acute constipation (K59.00) Active confirmed Problem Chronic pain (79959804) Other chronic pain (G89.29) Active confirmed Problem Diverticulitis of colon (213837423) Diverticulitis of large intestine without perforation or abscess without bleeding (K57.32) Active confirmed Problem Insomnia disorder related to another mental disorder (53317238) Psychophysiological insomnia (F51.04) Active confirmed Problem Sleep disorder (23119653) Sleep disorder (G47.9) Active confirmed Problem Obstructive sleep apnea syndrome (94527183) GALEN (obstructive sleep apnea) (G47.33) Active confirmed Problem Insomnia (250093572) Insomnia, unspecified type (G47.00) Active confirmed Problem Hemorrhage of colon due to diverticulosis (174069969209494) Diverticulosis of large intestine with hemorrhage (K57.31) Active confirmed Problem Pain of right hip joint (764979997080738) Pain of right hip joint (M25.551) Active confirmed Problem Skin sensation disturbance (75891550) Paresthesia of both lower extremities (R20.2) Active confirmed Problem Menopausal symptom (20961841) Hot flashes due to menopause (N95.1) Active confirmed Vital Signs Heart Rate 125 /min 05/06/2025 Blood pressure diastolic 60 mm Hg 05/06/2025 Height 65 in 05/08/2025 Blood pressure systolic 120 mm Hg 05/06/2025 Weight 126.4 lbs 05/06/2025 BMI 21.03 kg/m2 05/06/2025 Encounters Encounter Location Date Provider Diagnosis [facility] [address] [place] [id number] 03/09/2025 Sagrario Da Silva Acute sinusitis J01. 90 and BMI 23.0-23.9, adult Z68.23 [facility] [address] [facility] [address] [place], [place] [id number] 03/20/2025 Halley Crowdy Acute URI J06.9 [facility] [address] [facility] [address] [place], [place] [id number] 03/27/2025 Halley Crowdy Acute URI J06.9 and BMI 22.0-22.9, adult Z68.22 [facility] [address] [facility] [address] [place], [place] [id number] 04/09/2025 Arlyn Banda Acute sinusitis, recurrence not specified, unspecified location J01.90 and BMI 22.0-22.9, adult Z68.22 [facility] [address] [place], [place] [id number] 04/23/2025 Halley Crowdy Acute sinusitis, recurrence not specified, unspecified location J01.90 ; Other fatigue R53.83 ; Psychophysiological insomnia F51.04 ; Seasonal allergies J30.2 and BMI 22.0-22.9, adult Z68.22 [facility] [address] [facility] [address] [place], [place] [id number] 05/06/2025 Halley Crowdy Diverticulitis K57.9 2 ; Palpitations R00.2 and Hiatal hernia K44.9 [facility] [address] [facility] [address] [place], [place] [id number] 05/08/2025 Halley Crowdy Palpitations R00.2 [facility] [address] [facility] [address] [place] [id number] 05/07/2025 Halley Crowdy [facility] [address] [facility] [address] [place] [id number] 03/23/2025 Arlyn Banda Encounter for screen ing for malignant neoplasm of lung Z12.2 and Encounter for screening for malignant neoplasm of breast Z12.31 [facility] [address] [facility] [address] [place], [place] [id number] 04/23/2025 Halley Crowdy [facility] [address] [facility] [address] [place] [id number] 04/29/2025 Halley Erazo Assessments Encounter Date Diagnosis (ICD Code) Assessment Notes Treatment Notes Treatment Clinical Notes Section Notes 03/09/2025 Acute sinusitis (ICD-10 - J01.90) fluids, rest, supportive measures for fever/symptom relief OTC antihistamine of choice OTC decongestant and/or cough medicine of choice prn 03/09/2025 BMI 23.0-23.9, adult (ICD-10 - Z68.23) 03/20/2025 Acute URI (ICD-10 - J06.9) 03/23/2025 Encounter for screening for malignant neoplasm of lung (ICD-10 - Z12.2) 03/23/2025 Encounter for screening for malignant neoplasm of breast (ICD-10 - Z12.31) 03/27/2025 Acute URI (ICD-10 - J06.9) 03/27/2025 BMI 22.0-22.9, adult (ICD-10 - Z68.22) 04/09/2025 Acute sinusitis, recurrence not specified, unspecified location (ICD-10 - J01.90) 04/09/2025 BMI 22.0-22.9, adult (ICD-10 - Z68.22) 04/23/2025 Other fatigue (ICD-1 0 - R53.83) 04/23/2025 Acute sinusitis, recurrence not specified, unspecified location (ICD-10 - J01.90) Resolved 05/06/2025 Palpitations (ICD-10 - R00.2) HR is elevated today. Will check labs and a holter. 05/06/2025 Diverticulitis (ICD- 10 - K57.92) WBC is still elevated. Will start 5 more days of abx and f/u next week. 05/08/2025 Palpitations (ICD-10 - R00.2) 05/06/2025 Hiatal hernia (ICD-1 0 - K44.9) 04/23/2025 Psychophysiological insomnia (ICD-10 - F51.04) 04/23/2025 Seasonal allergies (ICD-10 - J30.2) 04/23/2025 BMI 22.0-22.9, adult (ICD-10 - Z68.22) 05/06/2025 Other Discharge summary with available lab/diagnostic imaging results obtained and reviewed. Discharge medication list reconciled. Appropriate counseling provided. Moderate Complexity Plan Of Treatment Pending Test Test Name Order Date colonoscopy 07/29/2024 Mammogram 03/23/2025 ultrasound : thyroid 05/08/2025 CT Scan : Chest, low dose 03/23/2025 Holter Monitor- 48 hour 05/06/2025 P-Thyroid Antibody Panel (TABS) 05/08/20 25 Next Appt Details Provider Name:Halley Gleason Aust[facility]ance chi, 05/13/2025 10:00:00 AM, [address], [address], [place], [place], [id number], Insurance Providers Payer Name Payer Address Payer Phone Subscriber Number Group Number Insured Name Patient Relationship to Insured Coverage Start Date Coverage End Date [employer] [address] [place] [address] [id number] JUANJOSE BARRON Self - patient is the insured Medications Administered Medication Instructions Date of Administration Dosage Notes depo medrol 80 mg 06/23/2005 0.5 mL Depo- Medrol 40 mg/ml 01/04/2016 1 mL Medical (General) History Medical History History ICD Code kidney stones depression diverticulitis Lumbar Disc Disease, MRI 2011 Lumbar facet arthropathy Moderna Covid vaccine x2 Dec 2020 Surgical History Surgery Date(Month/Year) tonsillectomy tubal ligation Right Breast Biospy 2006 gum grafting 12/2012 Hospitalization History Reason Date(Month/Year) vaginal live child , no complicatio ns x3 1984, 1989, 1993 see above
--- NOTE | 2025-05-11 13:30 | US_ITS ---
FINAL REPORT TECHNIQUE: Sonographic images of the thyroid gland were obtained in the longitudinal and transverse planes. CLINICAL HISTORY: HYPERTYYROIDISM FINDINGS: The right lobe measures 1.7 x 4.5 x 2.4 cm. The right lobe is homogeneous. There is hyperemia. There are no cystic or solid nodules. The left lobe measures 1.6 x 4.2 x 1.6 cm. The left lobe is homogeneous. There is hyperemia. There are no cystic or solid nodules. The isthmus measures 5 mm. This is normal. IMPRESSION: No concerning nodules identified. Diffuse hyperemia suggestive of thyroiditis. Reviewed, Interpreted and Dictated by Norah Silverman MD Transcribed by Grisel Beaulieu Authenticated and . [facility]
== END 2025-05-11 23:59 | disposition home or self-care (01) ==
LOC: RAD 13:26
PROVIDERS: PCP Physician Assistant; Visit Provider Physician Assistant
DX: E05.90 Thyrotoxicosis, unspecified without thyrotoxic crisis or storm (principal); R68.89 Other general symptoms and signs
CPT/HCPCS: 76536

== ENCOUNTER 2025-05-18 12:14 | Outpatient (CLI) | payer BC, SELFPAY ==
[2025-05-18 13:23] LABS: Hematocrit 43.1 % (37.0-47.0); Hemoglobin 13.7 g/dL (12.2-16.2); Mean Corpuscular HGB Conc 31.8 g/dL (31.8-35.4); Mean Corpuscular Hemoglobin 29.7 pg (27.0-31.2); Mean Corpuscular Volume 93.3 fl (81-99); Platelet Count 299 K/mm3 (142-424); Red Blood Count 4.62 M/mm3 (4.20-5.40); White Blood Count 8.6 K/mm3 (4.8-10.8)
[2025-05-18 14:02] LABS: RBC Morphology Normal; Total Cells Counted 100
[2025-05-18 14:08] LABS: Free T4 (Free Thyroxine) 4.71 ng/dl (0.78-2.19)
[2025-05-18 14:26] LABS: Thyroid Stimulating Hormone < 0.02 uIU/mL (0.465-4.68)
== END 2025-05-18 23:59 | disposition home or self-care (01) ==
LOC: LAB 12:16
PROVIDERS: PCP Physician Assistant; Visit Provider Student in an Organized Health Care Education/Training Program
DX: E05.90 Thyrotoxicosis, unspecified without thyrotoxic crisis or storm (principal)
CPT/HCPCS: 36415; 83520; 84439; 84443; 84445; 84480; 85007; 85014; 85018; 85048; 85049

== ENCOUNTER 2025-06-16 11:54 | Outpatient (CLI) | payer BC, SELFPAY ==
--- OUTSIDE RECORDS SUMMARY | 2025-05-06 06:15 | XMS_ITS ---
Author Organization [facility] Address [address] [place] [id number] Care Team Providers Care Steam Fitter Helper Name Role Phone Arlyn Banda Primary Care Provider Julia Arevalo Unavailable [phone] Halley Erazo Unavailable [phone] Allergies Allergen (clinical drug ingredient) Drug/Non Drug [...] Interpretation:Normal Performing Lab: Notes/Report: Test performed by [facility] [address] [place] [address] , [address], [place] [address] Dell Wilder MD, Salad Bar Clerk CLIA: [id number] Sodium 140 135-145 mmol/L Potassium 5.2 3.5-5.3 [...] Interpretation:6.69 Performing Lab: Notes/Report: Test performed by [facility] [address] [place] [address] , [address], [place] [address] Dell Wilder MD, Salad Bar Clerk CLIA: [id number] Thyroxine Free (free T4) 6.69 0.86-1.76 ng/dL P-TSH reflex to FT4 Reviewed date:05/07/2025 05:08:51 PM Interpretation:<0.005 Performing Lab: Notes/Report: Test performed by [facility] [address] [place] [address] , [address], [place] [address] Dell Wilder MD, Salad Bar Clerk CLIA: [id number] TSH reflex to FT4 <0.005 0.43-5.25 mU/L Holter Monitor- 48 hour Reviewed date:05/22/2025 10:12:42 AM Interpretation: Performing Lab: Notes/Report: Reason For Referral Diagnosis 1 Hiatal hernia (K44.9 ) Referral Organization [facility] Referring Provider First Name Halley Referring Provider Last Name Kacey Referring Provider Speciality Physician Pulpwood Dealer Referred Provider Specialty General Surg april General Notes Pt needs an appt [facility] h Addis Mayen Brynn 05/06/2025 01:38:51 PM [...] Duration: 5 days 05/06/2025 Active Vital Signs Blood pressure systolic 120 mm Hg 05/06/20 25 Blood pressure diastolic 60 mm Hg 025 Heart Rate 125 /min 05/06/2025 Height 65 in 05/06/2025 Weight 126.4 lbs 05/06/2025 BMI 21.03 kg/m2 05/06/2025 Encounters Encounter Location Date Provider Diagnosis [facility] [address] [place], [place] [id number] 05/06/2025 Halley Crowdy Diverticulitis K57.9 2 ; [...] Notes * ARISTIDES BARRON:1960 (65 yo F)Acc No.[id number]:05/06/2025 Patient: JUANJOSE LOW Provider: FILOMENA Hewitt :1960 A ge:65 Y S ex:Female Date:05/06/2025 Address:[address] [place] [address], [place], [id number] Pcp:Arlyn Banda Subjective: * Chief Complaints: * 1 . [facility] discharge f/u. * HPI: H PI: Patient is here today for A Transition of Care Visit. Discharge from the following Facility: admitted to [facility] 04/26/2025 for Sepsis and Diverticulitis, Discharge [...] 10 :42:55 AM EDT >room 5, purple Theodore Anita 05/07/2025 05:08:44 PM EDT > See [...] 6.69 H 0.86-1.76 - ng/d L * [facility], IT support 05/07/2025 08:35:05 : This order was created by the Interface. Theodore, Anita 05/07/2025 05:08:44 PM EDT > See phone encounter * Procedure Codes: 9 9495 TRANS CARE MGMT 14 DAY DISCH, 1111F DSCHR MED/CURENT MED MERGE, 31005 CBC WITH AUTO DIFF, 51117 VENIPUNCT, ROUTINE* * Follow Up: 1 Week * Images: Billing Information: * Visit Code: 00914 Office Visit, Est Pt., Level 4. * Procedure Codes: 01835 TRANS CARE MGMT 14 DAY DISCH. 1111F DSCHR MED/CURENT MED MERGE. 22774 CBC WITH AUTO DIFF. 63306 VENIPUNCT, ROUTINE*. * Electronic signature of FILOMENA Coles on 06/16/2025 at 11:56 AM EDT Sign off status: Pending * Provider: FILOMENA Hewitt Date: 0 05/06/2025 Generated for Printi ng/Faxing/eTransmitting on: 1 11:56 AM EDT History and Physical Notes * HPI (History of Present Illness) Category Sub-Category Detail Notes Category Not es HPI Patient is here today for A [facility] sition of Care Visit. Discharge from the following Facility: admitted to [facility] 04/26/2025 for Sepsis and Diverticulitis, Discharge [...]
--- OUTSIDE RECORDS SUMMARY | 2025-05-08 09:00 | XMS_ITS ---
Author Organization [facility] Address [address] [place] [id number] Care Team Providers Care Automatic Grinding Machine Operator Name Role Phone Arlyn Banda Primary Care Provider Julia Arevalo Unavailable [phone] Halley Erazo Unavailable [phone] Results Component Value Reference Range Notes CBC [...] H Performing Lab: Notes/Report: Test performed by [email or web address], [facility] [address] [place] [address] , [address], [place] [address] Dell Wilder MD, Terrazzo Polisher CLIA: [id number] Thyroid Peroxidase Antibody <9 <9-34 IU/mL An [...] Encounter Location Date Provider Diagnosis [facility] [facility] [address] [place] [id number] 05/08/2025 Halley Kacey Palpitations R00.2 Assessments Encounter Date Diagnosis (ICD Code) Assessment Notes Treatment Notes Treatment Clinical Notes Section Notes 05/08/2025 Palpitations (ICD-10 - R00.2) Plan Of Treatment No Information Progress Notes * NAILA BARRONOB:1960 (65 yo F)Acc No.[id number]:05/08/2025 Patient: JUANJOSE LOW Provider: FILOMENA Hewitt :1960 A ge:65 Y S ex:Female Date:05/08/2025 Address:[address] [place] [address], [id number] Pcp:Arlyn Banda Subjective: * Chief [...] Information: * Visit Code: * Procedure Codes: 65096 CBC WITH AUTO DIFF. * Electronic signature of FILOMENA Coles on 06/16/2025 at 11:56 AM EDT Sign off status: Pending * Provider: FILOMENA Hewitt Date: 0 05/08/2025 Generated for Renetta aviles/Teresa/Amrit on: 1 11:56 AM EDT
--- OUTSIDE RECORDS SUMMARY | 2025-05-13 06:00 | XMS_ITS ---
Author Organization [facility] Address [address]10 [facility] 36 [facility] [address] [place] [id number] Care Team Providers Care Fire Battalion Chief Name Role Phone Arlyn Banda Primary Care Provider Julia Arevalo Unavailable [phone] Halley Erazo Unavailable [phone] Allergies Allergen (clinical drug ingredient) Drug/Non Drug [...] Status W/U Status Risk Notes Problem Thyroiditis (40001113) Thyroiditis (E06.9) Active confirmed Vital Signs Blood pressure systolic 128 mm Hg 05/13/20 25 Blood pressure diastolic 64 mm Hg 025 Heart Rate 102 /min 05/13/2025 Height 65 in 05/13/2025 Weight 127 lbs 05/13/2025 BMI 21.13 kg/m2 05/13/2025 Encounters Encounter Location Date Provider Diagnosis [facility] [address] [facility] [address] [place] [id number] 05/13/2025 Halley Kacey Hyperthyroidism E05. 90 ; [...] Notes * NAILA BARRONOB:1960 (65 yo F)Acc No.[id number]:05/13/2025 Progress Notes Patient: JUANJOSE LOW Provider: FILOMENA Hewitt :1960 A ge:65 Y S ex:Female Date:05/13/2025 [address] [place] Pcp:Arlyn Banda Subjective: * Chief [...] T achycardia - R00.[address] 21.0-21.9, adult - Z68.21 ? Plan: * [...] Dr Aponte 11/25/24. * Follow Up: w [facility] endocrinology * Images: Billing Information: * Visit Code: 63648 Office Visit, Est Pt., Level 4. * Procedure Codes: 1036F TOBACCO NON-USER. 3074F SYST BP LT 130 MM HG. 3078F DIAST BP < 80 MM HG. 3017F COLORECTAL CA SCREEN DOC REV. * Electronic signature of FILOMENA Coles on 06/16/2025 at 11:56 AM EDT Sign off status: Pending * Provider: FILOMENA Hewitt Date: 0 05/13/2025 Generated for Lexiii ng/Fashanong/eTransmitting on: 1 11:56 AM EDT History and [...]
--- OUTSIDE RECORDS SUMMARY | 2025-05-18 05:01 | XMS_ITS ---
Author Organization Srinivas Address 1210 [facility] 36 [facility] [address] [place] [id number] Care Team Providers Care Chairman President And Chief Executive Officer Name Role Phone Arlyn Banda Primary Care Provider Julia Arevalo Taye Heller [phone] REASON FOR VISIT due mary, LDCT Encounters Encounter Location Date Provider Diagnosis [facility] [address] [place] [id number] 05/18/2025 Arlyn Banda Breast cancer screening Z12.31 and Encounter for screening for lung cancer Z12.2 Assessments Encounter Date Diagnosis (ICD Code) Assessment Notes Treatment Notes Treatment Clinical Notes Section Notes 05/18/2025 Breast cancer screening (ICD-10 - Z12.31) 05/18/2025 Encounter for screening for lung cancer (ICD-10 - Z12.2) Plan Of Treatment Pending Test Test Name Order Date Mammogram 05/18/2025 CT Scan : Chest, low dose 05/18/2025 Progress Notes * GONZALES BARRONMADONNAOB:1960 (65 yo F)Acc No.[id number]:05/18/2025 Patient: JUANJOSE LOW :1960 A ge:65 Y S ex:Female Address:[address] [facility] [address] [address] Subjective: * Chief Complaints: * d ue mary, LDCT * Medical History: * Surgical History: * Hospitalization/Major Diagno stic Procedure: * Medications: Objective: * Vitals: * Physical Examination: Assessment: * Assessment: 1. B reast cancer screening - Z12.31 (Primary) 2 . E ncounter for screening for lung cancer - Z12.2 Plan: * Treatment: 2.?Encounter for screening for lung cancer?Imaging: CT Scan : Chest, low dose* Deidre Beaulieu 05/28/2025 12:2 6:10 PM EDT > sent to [facility] for referral to [facility]. Maidacassandra says she does not feel well and would iek to schedule for a month or more out so she can get better first * Procedure Codes: * true * Date: Generated for Renetta aviles/Teresa/Caridaditting on: 11:57 AM EDT
--- OUTSIDE RECORDS SUMMARY | 2025-06-16 11:58 | XMS_ITS | Patient Health Record ---
Author Organization A[facility] Address [address] [facility] [address] [place] [id number] Care Team Providers Care Hub Borer Name Role Phone Arlyn Banda Primary Care Provider Julia Arevalo Unavailable [phone] Sagrario Da Silva Unavailable [phone] Halley Erazo Unavailable [phone] Allergies Allergen (clinical drug ingredient) Drug/Non Drug [...] Interpretation:Normal Performing Lab: Notes/Report: Test performed by [facility] , [address], [place] [address] Dell Wilder MD, Pharmacy Cashier CLIA: [id number] Sodium 140 135-145 mmol/L Potassium 5.2 3.5-5.3 [...] Interpretation:6.69 Performing Lab: Notes/Report: Test performed by [facility] [address] [place] [address] , [address] [id number] Dell Wilder MD, Pharmacy Cashier CLIA: [id number] Thyroxine Free (free T4) 6.69 0.86-1.76 ng/dL P-TSH reflex to FT4 Reviewed date:05/07/2025 05:08:51 PM Interpretation:<0.005 Performing Lab: Notes/Report: Test performed by [facility] [address] [place] [address] , [address], [place] [address] Dell Wilder MD, Pharmacy Cashier CLIA: [id number] TSH reflex to FT4 <0.005 0.43-5.25 mU/L Holter Monitor- 48 hour Reviewed date:05/22/2025 10:12:42 AM Interpretation: Performing Lab: Notes/Report: CBC Fingerstick (in house) Reviewed date:05/08/2025 05:38:31 [...] H Performing Lab: Notes/Report: Test performed by [facility] [address] [place] [address] , [address], [place] [address] Dell Wilder MD, Pharmacy Cashier CLIA: [id number] Thyroid Peroxidase Antibody <9 <9-34 IU/mL An [...] methods or kits cannot be directly compared. ultrasound : thyroid Reviewed date:05/15/2025 12:13:04 AM Interpretation: Performing Lab: Notes/Report: CT Scan : Sinuses, without c ontrast [...] Interpretation: Performing Lab: Notes/Report: Test performed by [facility] [address] [place] [address] , [address], [place] [address] Dell Wilder MD, Pharmacy Cashier CLIA: [id number] Vitamin B12 943 564-5069 pg/mL P-Comprehensive Metabolic Pa michael (CMP) Reviewed date:04/29/2025 01:21:29 PM Interpretation: Performing Lab: Notes/Report: Test performed by [facility] [address] [place] [address] , [address], [place] [address] Dell Wilder MD, Pharmacy Cashier CLIA: [id number] Sodium 141 135-145 mmol/L Potassium 4.8 3.5-5.3 [...] Interpretation: Performing Lab: Notes/Report: Test performed by [facility] [address] [place] [address] , [place] [address] Dell Wilder MD, Pharmacy Cashier CLIA: [id number] Jensen Ochoa Virus (EBV) VCA Antibodies IgG 7.3 <0.9 AI Jensen Ochoa Virus (EBV) VCA Antibodies IgM <0.2 <0.9 AI P-TSH reflex to FT4 Reviewed date:04/29/2025 01:21:29 PM Interpretation: Performing Lab: Notes/Report: Test performed by [facility] [address] [place] [address] , [place] [address] Dell Wilder MD, Pharmacy Cashier CLIA: [id number] TSH reflex to FT4 <0.005 0.43-5.25 mU/L P-Vitamin D 25-Hydroxy Reviewed date:04/29/2025 01:21:29 PM Interpretation: Performing Lab: Notes/Report: Test performed by [facility] [address] [place] [address] , [address], [place] [address] Dell Wilder MD, Pharmacy Cashier CLIA: [id number] Vitamin D 25-Hydroxy 34.1 30.0-100.0 ng/mL Interpretation of Vitamin D 25 OH: < 20 ng/mL - Deficiency 20 - 29 ng/mL - Insufficiency 30 - 100 ng/mL - Sufficiency > 100 ng/mL - Super-therapeutic- toxicity may occur above this level. Clinical correlation required. Pathology evaluation Reviewed date:11/28/2024 05:29:41 PM Interpretation:Negative Performing Lab: Notes/Report: Negative CBC Fingerstick (in house) Reviewed date:03/27/2025 04:09:31 [...] - 38 plat 233 100 - 400 P-T4 Free (thyroxine) Reviewed date:04/29/2025 01:21:29 PM Interpretation: Performing Lab: Notes/Report: Test performed by [facility] [address] [place] [address] , [address], [place] [address] Dell Wilder MD, Pharmacy Cashier CLIA: [id number] Thyroxine Free (free T4) 5.79 0.86-1.76 ng/dL H-CBC Reviewed date:04/28/2025 09:25:17 AM Interpretation: Performing [...] 151 >60 ML/MIN Delta: 122 on 0 04/27/25-523 EGFR 125 >60 ml/min GLU 104 74-100 mg/dl CA 8.6 8.4-10.2 mg/dl BILIT 0.4 0.2-1.3 mg/dl AST 51 14-36 U/L ALT 48 12-78 U/L TP 5.4 6.3-8.2 g/dl ALB 2.8 3.5-5.0 g/dl GLOB 2.6 1.3-3.2 g/dL AGRATIO 1.1 1.1-1.8 ALP 93 38-126 U/L H-CBC Reviewed date:04/29/2025 01:21:29 PM Interpretation: Performing [...] 0.0 0-0.2 K/mm3 NRBC# 0 IG# 0.05 CBC Fingerstick (in house) Reviewed date:03/25/2025 02:27:51 [...] - 38 plat 201 100 - 400 Medications Medication SIG (Take, Route, Frequency, Duration) [...] Status W/U Status Risk Notes Problem Diverticulitis (94794478) Diverticulitis (K57.92) Active confirmed Problem Seasonal allergy (592558400) Seasonal allergies (J30.2) Active confirmed Problem Sciatic nerve lesion (783789912) Piriformis syndrome of right side (G57.01) Active confirmed Problem Hyperthyroidism (34280531) Hyperthyroidism (E05.90) Active confirmed Problem Acute constipation (910175821) Acute constipation (K59.00) Active confirmed Problem Chronic pain (89005637) Other chronic pain (G89.29) Active confirmed Problem Diverticulitis of colon (642900978) Diverticulitis of large intestine without perforation or abscess without bleeding (K57.32) Active confirmed Problem Thyroiditis (07965528) Thyroiditis (E06.9) Active confirmed Problem Insomnia disorder related to another mental disorder (70111022) Psychophysiological insomnia (F51.04) Active confirmed Problem Sleep disorder (75877619) Sleep disorder (G47.9) Active confirmed Problem Obstructive sleep apnea syndrome (09012783) GALEN (obstructive sleep apnea) (G47.33) Active confirmed Problem Insomnia (546804189) Insomnia, unspecified type (G47.00) Active confirmed Problem Hemorrhage of colon due to diverticulosis (578287898924181) Diverticulosis of large intestine with hemorrhage (K57.31) Active confirmed Problem Pain of right hip joint (322091191654161) Pain of right hip joint (M25.551) Active confirmed Problem Skin sensation disturbance (60768589) Paresthesia of both lower extremities (R20.2) Active confirmed Problem Menopausal symptom (63645314) Hot flashes due to menopause (N95.1) Active confirmed Vital Signs Heart Rate 102 /min 05/13/2025 Blood pressure diastolic 64 mm Hg 05/13/2025 Height 65 in 05/13/2025 Blood pressure systolic 128 mm Hg 05/13/2025 Weight 127 lbs 05/13/2025 BMI 21.13 kg/m2 05/13/2025 Encounters Encounter Location Date Provider Diagnosis [place] [address] [place] [address] [place] [id number] 03/09/2025 Sagraroilibia Da Silva Acute sinusitis J01. 90 and BMI 23.0-23.9, adult Z68.23 [facility] [address] [place] [facility] [address] [place] [id number] 03/20/2025 Halley Crowdy Acute URI J06.9 [facility] [address] [place] [facility] [address] [place] [id number] 03/27/2025 Halley Crowdy Acute URI J06.9 and BMI 22.0-22.9, adult Z68.22 [facility] [address] [place] [facility] [address] [place] [id number] 04/09/2025 Arlyn Banda Acute sinusitis, recurrence not specified, unspecified location J01.90 and BMI 22.0-22.9, adult Z68.22 [facility] [address] [place] [address] [place] [id number] 04/23/2025 Halley Crowdy Acute sinusitis, recurrence not specified, unspecified location J01.90 ; Other fatigue R53.83 ; Psychophysiological insomnia F51.04 ; Seasonal allergies J30.2 and BMI 22.0-22.9, adult Z68.22 [facility] [address] [place] [address] [place] [id number] 05/06/2025 Halley Crowdy Diverticulitis K57.9 2 ; Palpitations R00.2 and Hiatal hernia K44.9 [facility] [address] [place] [address] [place], [place] [id number] 05/08/2025 Halley Crowdy Palpitations R00.2 [facility] [address] [place] [address] [place], [place] [id number] 05/13/2025 Halley Crowdy Hyperthyroidism E05. 90 ; Thyroiditis E06.9 ; Tachycardia R00.0 and BMI 21.0-21.9, adult Z68.21 [facility] [address] [place], [place] [id number] 03/23/2025 Arlyn Banda Encounter for screen ing for malignant neoplasm of lung Z12.2 and Encounter for screening for malignant neoplasm of breast Z12.31 [facility] [address] [place], [place] [id number] 04/23/2025 Halley Austindy [facility] [address] [place], [place] [id number] 04/29/2025 Halley Crowdy [facility] [address] [place], [place] [id number] 05/07/2025 Halley Austindy [facility] [address] [place], [place] [id number] 05/18/2025 Arlyn Banda Breast cancer screen ing Z12.31 and Encounter for screening for lung cancer Z12.2 [facility] [address] [place], [place] [id number] 05/22/2025 Halley Austindy Assessments Encounter Date Diagnosis (ICD Code) Assessment Notes Treatment Notes Treatment Clinical Notes Section Notes 04/23/2025 Other fatigue (ICD-1 0 - R53.83) 04/23/2025 Acute sinusitis, recurrence not specified, unspecified location (ICD-10 - J01.90) Resolved 05/06/2025 Palpitations (ICD-10 - R00.2) HR is elevated today. Will check labs and a holter. 05/06/2025 Diverticulitis (ICD- 10 - K57.92) WBC is still elevated. Will start 5 more days of abx and f/u next week. 05/08/2025 Palpitations (ICD-10 - R00.2) 05/13/2025 Hyperthyroidism (ICD-10 - E05.90) Patient has not heard from the endocrinology office since the referral was made. We will call today about the appt. 05/13/2025 Thyroiditis (ICD-10 - E06.9) 05/18/2025 Encounter for screening for lung cancer (ICD-10 - Z12.2) 05/18/2025 Breast cancer screening (ICD-10 - Z12.31) 03/09/2025 Acute sinusitis (ICD-10 - J01.90) fluids, [...] 04/09/2025 BMI 22.0-22.9, adult (ICD-10 - Z68.22) 05/13/2025 Tachycardia (ICD-10 - R00.0) HR has been lower but unable to increase the metoprolol due to low BP at home. Will keep patient on 1/2 tab and start on methimazole for hyperthyroidism. 05/06/2025 Hiatal hernia (ICD-1 0 - K44.9) 04/23/2025 Psychophysiological insomnia (ICD-10 - F51.04) 05/13/2025 BMI 21.0-21.9, adult (ICD-10 - Z68.21) 04/23/2025 Seasonal allergies (ICD-10 - J30.2) 04/23/2025 BMI 22.0-22.9, adult (ICD-10 - Z68.22) 05/06/2025 Other Discharge summary with available lab/diagnostic imaging results obtained and reviewed. Discharge medication list reconciled. Appropriate counseling provided. Moderate Complexity Plan Of Treatment Pending Test Test Name Order Date colonoscopy 07/29/2024 Mammogram 03/23/2025 Mammogram 05/18/2025 CT Scan : Chest, low dose 03/23/2025 CT Scan : Chest, low dose 05/18/2025 Insurance Providers Payer Name Payer Address Payer Phone Subscriber Number Group Number Insured Name Patient Relationship to Insured Coverage Start Date Coverage End Date LU KEITHFRANCISCO HAMILTON [address] [place] [address] [id number] TAMIKAJUANJOSE MORRIS Self - patient is the insured Medications [...] gum grafting 12/2012 Hospitalization History Reason Date(Month/Year) see above vaginal live child , no complicatio ns x3 1984, 1989, 1993
[2025-06-16 13:16] LABS: Free T4 (Free Thyroxine) 1.32 ng/dl (0.78-2.19)
[2025-06-16 13:32] LABS: Thyroid Stimulating Hormone < 0.02 uIU/mL (0.465-4.68)
== END 2025-06-16 23:59 | disposition home or self-care (01) ==
LOC: LAB 11:54
PROVIDERS: PCP Physician Assistant; Visit Provider Student in an Organized Health Care Education/Training Program
DX: E05.00 Thyrotoxicosis with diffuse goiter without thyrotoxic crisis or storm (principal)
CPT/HCPCS: 36415; 84439; 84443

== ENCOUNTER 2025-07-23 08:46 | Outpatient (CLI) | payer BC, SELFPAY ==
--- OUTSIDE RECORDS SUMMARY | 2025-03-20 10:15 | XMS_ITS ---
Author Organization [facility] Address [address] [place] [id number] Care Team Providers [employer] Account Executive Name Role Phone Arlyn Banda Primary Care Provider Julia Arevalo Unavailable [phone] Halley Erazo Unavailable [phone] Allergies Allergen (clinical drug ingredient) Drug/Non Drug Allergy documented on EMR Reaction Allergy Type Onset Date Status codeine Codeine Unknown Drug Allergy Active Penicillin Anaphylaxis Drug Allergy Acti ve tetracycline Tetracycline Unknown Drug Allergy A ctive Results Component Value Reference Range Notes CBC Fingerstick (in house) Reviewed date:03/25/2025 02:27:51 PM Interpretation: Performing Lab: Notes/Report: wbc 11.8 3.5 - 10 lym 26.3 15 - 50 mid 6.2 2 - 15 gran 67.5 35 - 80 rbc 4.81 3.5 - 5.5 hgb 15.4 11.5 - 16.5 hct 46.1 35 - 55 mcv 95.7 75 - 100 mch 32.0 25 - 35 mchc 33.5 31 - 38 plat 201 100 - 400 REASON FOR VISIT poss sinus infection Medications Medication SIG (Take, Route, Frequency, Duration) Notes Start Date End Date Status Cefdinir 300 MG 1 cap(s) Orally Two times a day; Duration: 7 days 03/20/2025 Active PROBIOTICS P.O. DAILY *Please review for potential replacement for e-prescription and drug interaction check* Not-Taking Vitamin B12 1000 MCG 1 tablet Orally Once a day; Duration: 30 day(s) Not-Taking Meloxicam 7.5 MG 1 tab(s) orally once a day prn Not-Taking Drorxnak-Ofqlmcnte-BY 2-30-10 MG/5ML 5-10 mL Orally 4 times a day, prn 03/20/2025 Active Progesterone 100 MG 1 capsule at bedtime Orally Once a day; Duration: 30 day(s) Active Zithromax Z-Bishnu 250 MG 2 pills first day then one daily for 4 days orally as directed; Duration: 5 days 03/09/2025 Not-Taking Metamucil Smooth Texture 58.6 % as directed orally once a day; Duration: 7 day(s) Not-Taking Vitamin A & D 65452-462 UNIT as directed Orally Not-Taking Vitamin K 100 MCG 1 tablet Orally Once a day; Duration: 30 day(s) Not-Taking Magnesium 250 MG 1 tablet with a meal Orally Once a day; Duration: 30 day(s) Active Sulindac 1 P.O. BID *Please review and pick correct strength-formulat ion from [employer] options. If intended option is not shown, discontinue and re-order from Quick Search* 11/13/2020 Not-Taking Estradiol 0.05 MG/24HR 1 patch to skin Transdermal Two times a Week; Duration: 30 day(s) Active Effexor XR 75 MG 1 cap(s) orally once a day 03/09/2021 Not-Taking CareTouch CPAP & BIPAP Hose 1 DIRECTED *Please review and pick correct strength-formulat ion from [employer] options. If intended option is not shown, discontinue and re-order from Quick Search* Not-Taking Gabapentin 100 MG 2 orally qhs 05/10/2021 Not-Taking Cyclobenzaprine HCl 10 MG 1 tab(s) orally 3 times a day 03/13/2022 Not-Taking Vital Signs Weight 137.6 lbs 03/20/2025 Blood pressure systolic 116 mm Hg 03/20/20 25 Blood pressure diastolic 78 mm Hg 025 Heart Rate 65 /min 03/20/2025 Height 65 in 03/20/2025 BMI 22.9 kg/m2 03/20/2025 Encounters Encounter Location Date Provider Diagnosis [facility] [address] [facility] [address] [place], [place] [id number] 03/20/2025 Halley Erazo Acute URI J06.9 Assessments Encounter Date Diagnosis (ICD Code) Assessment Notes Treatment Notes Treatment Clinical Notes Section Notes 03/20/2025 Acute URI (ICD-10 - J06.9) Plan Of Treatment Medication Medication Name Sig Start Date Stop Date Notes Cefdinir 300 MG 1 cap(s) Orally Two times a day; Duration: 7 days 03/20/2025 Ulpcmokr-Jirunnkvz-SV 2-30-1 0 MG/5ML 5-10 mL Orally 4 times a day, prn 03/20/2025 Next Appt Details Follow Up: prn, Reason: Progress Notes * NAILA BARRONOB:1960 (65 yo F)Acc No.[id number]:03/20/2025 Progress Notes Patient: JUANJOSE LOW Provider: FILOMENA Hewitt :1960 A ge:64 Y S ex:Female Date:03/20/2025 Address:[address] [place] [address], [place], [id number] Pcp:Arlyn Banda Subjective: * Chief Complaints: * 1 . Poss sinus infection. * HPI: E NT/respiratory: 64 year old female presents with c/o sore throat P t sts her throat is scratchy. c/o cough. c/o ear pain P t sts her ears feel full. c/o headache. Denies : Fever. D enies : body aches. nasal congestion P t sts she was here 2 weeks ago with a sinus infection, pt sts she did start to feel better but sts on Sunday she started feeling bad again. Pt sts she does have the symptoms that she had 2 weeks ago. Pt also sts she has pressure in her face as well. * ROS: D ERMATOLOGY: no R jaime. n o H chely. G ASTROENTEROLOGY: no N ausea. n o V omiting. n o D iarrhea.? U ROLOGY: no D ifficulty urinating. n o B lood in urine. * Medical History: K idney stones, Depression, Diverticulitis, Lumbar Disc Disease, MRI 2011, Lumbar facet arthropathy, Moderna Covid vaccine x2 Nov/Dec 2020. * Surgical History: t onsillectomy , tubal ligation , Right Breast Biospy 2006, gum grafting 12/2012. * Hospitalization/Major Diagno stic Procedure: s ee above , vaginal live child , no complications x3 1984, 1989, 1993. * Family History: F ather: 69 yrs. M other: alive 67 yrs. P aternal Grand Father: .?Paternal Grand Mother: . M aternal Grand Father: . M aternal Grand Mother: . 1 sister(s) . 3 daughter(s) . . * Social History: C URRENT TOBACCO USE S moking Status: Patient does smoke. C affeine: yes, frequency:daily. Exercise: yes. Home smoke detector use: yes. Marital Status: . New since last visit: none. Occupation: yes. Past smoking status: yes, Smoking status: Patient does smoke. Occup. exposure: none. Recreational drug use: no. Alcohol: socially, Type: , Frequency: ,Years: , Determination:. Sexually active: yes. Travel ouside [place]: no. * Medications: T aking Magnesium 250 MG Tablet 1 tablet with a meal Orally Once a day , Taking Estradiol 0.05 MG/24HR Patch Twice Weekly 1 patch to skin Transdermal Two times a Week , Taking Progesterone 100 MG Capsule 1 capsule at bedtime Orally Once a day , Not-Taking Metamucil Smooth Texture 58.6 % Powder as directed orally once a day , Not-Taking Zithromax Z-Bishnu 250 MG Tablet 2 pills first day then one daily for 4 days orally as directed , Not-Taking Vitamin K 100 MCG Tablet 1 tablet Orally Once a day , Not-Taking Vitamin A & D 59292-912 UNIT Tablet as directed Orally , Not-Taking Vitamin B12 1000 MCG Tablet Extended Release 1 tablet Orally Once a day , Not- Taking PROBIOTICS P.O. DAILY , Notes to Pharmacist: *Please review for potential replacement for e-prescription and drug interaction check*, Not-Taking Meloxicam 7.5 MG Tablet 1 tab(s) orally once a day prn , Not-Taking Cyclobenzaprine HCl 10 MG Tablet 1 tab(s) orally 3 times a day , Not-Taking Gabapentin 100 MG Capsule 2 orally qhs , Not- Taking Effexor XR 75 MG Capsule Extended Release 24 Hour 1 cap(s) orally once a day , Not-Taking Sulindac 1 P.O. BID , Notes to Pharmacist: *Please review and pick correct strength-formulation from [employer] options. If intended option is not shown, discontinue and re-order from Quick Search*, Not-Taking CareTouch CPAP & BIPAP Hose MACHINE AND SUPPLIES 1 DIRECTED , Notes to Pharmacist: *Please review and pick correct strength-formulation from [employer] options. If intended option is not shown, discontinue and re-order from Quick Search*, Medication List reviewed and reconciled with the patient * Allergies: C odeine, Penicillin: Anaphylaxis, Tetracycline. Objective: * Vitals: W t: 137.6, Temp: 97.9, BP: 116/78, HR: 65, Nurse: [facility], Ht: 65, BMI:22.9. * Examination: E NT/Respiratory: General Appearance: N AD. E ars: a uditory canals normal bilaterally, TM's WNL. N ose : t urbinates red, congested. S inuses : t jose maxillary sinuses bilaterally. O ral cavity : e rythema without exudate on pharynx. N manish : n o cervical lymphadenopathy. H eart : R RR, normal S1 S2, no murmurs. L ungs:?clear to auscultation bilaterally. Assessment: * Assessment: 1. Marisol quigley URI - J06.9 (Primary) Plan: * Treatment: Value Reference Range w bc 11.8 3.5 - 10 * l ym 26.3 15 - 50 * m id 6.2 2 - 15 * g ran 67.5 35 - 80 * r bc 4.81 3.5 - 5.5 * h gb 15.4 11.5 - 16.5 * h ct 46.1 35 - 55 * m cv 95.7 75 - 100 * m ch 32.0 25 - 35 * m chc 33.5 31 - 38 * p lat 201 100 - 400 * Lilia Jones 03/20/2025 03:4 5:00 PM EDT > Provider reviewed results while patient in office. * Procedure Codes: 3 6416 CAPILLARY BLOOD DRAW, 91872 CBC WITH AUTO DIFF * Follow Up: p rn * Images: Billing Information: * Visit Code: 30998 Office Visit, Est Pt., Level 3. * Procedure Codes: 97584 CAPILLARY BLOOD DRAW. 44401 CBC WITH AUTO DIFF. * Electronic signature of FILOMENA Coles on 07/23/2025 at 08:51 AM EST Sign off status: Pending * Provider: FILOMENA Hewitt Date: 0 03/20/2025 Generated for Renetta aviles/Teresa/Amrit on: 1 09/22/2024 08:51 AM EST History and Physical Notes * HPI (History of Present Illness) Category Sub-Category Detail Notes Category Not es ENT/respiratory sore throat Pt sts her throat is scra tchy ear pain Pt sts her ears feel full cough Fever headache nasal congestion Pt sts she was here 2 weeks ago with a sinus infection, pt sts she did start to feel better but sts on Sunday she started feeling bad again. Pt sts she does have the symptoms that she had 2 weeks ago. Pt also sts she has pressure in her face as well body aches Examination Category Sub-Category Detail Notes Category Not es ENT/Respiratory Oral cavity : erythema without exudate on pharynx Sinuses : tender maxillary sin uses bilaterally Ears: auditory canals norm al bilaterally, TM's WNL Neck : no cervical lymphade nopathy Heart : RRR, normal S1 S2, n o murmurs Lungs: clear to auscultatio n bilaterally General Appearance: NAD Nose : turbinates red, mark ested
--- OUTSIDE RECORDS SUMMARY | 2025-03-27 04:00 | XMS_ITS ---
Author Organization [facility] Address [address] [facility] [address] [place] [phone] Care Team Providers Care Mink Farmer Name Role Phone Arlyn Banda Primary Care Provider Julia Arevalo Unavailable [phone] Halley Erazo Unavailable [phone] Allergies Allergen (clinical drug ingredient) Drug/Non Drug [...] review and pick correct strength-formulat ion from App[employer]er options. If intended option is not shown, discontinue and re-order from Quick Search* 11/13/2020 Not-Taking CareTouch CPAP & BIPAP Hose 1 DIRECTED *Please review and pick correct strength-formulat ion from App[employer]er options. If intended option is not shown, discontinue and re-order from Quick Search* Not-Taking PROBIOTICS P.O. DAILY *Please review for potential replacement for e-prescription and drug interaction check* Not-Taking Meloxicam 7.5 MG 1 tab(s) orally once a day prn Not-Taking Vitamin A & D 99737-134 UNIT as directed Orally Not-Taking Vitamin B12 [...] a day; Duration: 7 days 03/27/2025 Active Kflkyjcs-Zrgchjhlf-GY 2-30-10 MG/5ML 5-10 mL Orally 4 times a day, prn Active Vital Signs Weight 137.6 lbs 03/27/2025 Blood pressure systolic 114 mm Hg 03/27/20 25 Blood pressure diastolic 70 mm Hg 025 Heart Rate 98 /min 03/27/2025 Height 65 in 03/27/2025 BMI 22.9 kg/m2 03/27/2025 Encounters Encounter Location Date Provider Diagnosis [facility] [address] [facility] [address] [place] [phone] 03/27/2025 Halley Erazo Acute URI J06.9 and [...] Once a day; Duration: 7 days 03/27/2025 Wispsxqn-Evkoeytsc-AJ 2-30-1 0 MG/5ML 5-10 mL Orally 4 times a day, prn Next Appt Details Follow Up: prn, Reason: Progress Notes * NAILA BARRONOB:1960 (65 yo F)Acc No.[id number]:03/27/2025 Progress Notes Patient: JUANJOSE LOW Provider: FILOMENA Hewitt :1960 A ge:64 Y S ex:Female Date:03/27/2025 Address:[address] [place] [address], [place], [id number] Pcp:Arlyn Banda Subjective: * Chief Complaints: * [...] bedtime Orally Once a day , Taking Spqenlng-Vnigqtnzf-WU 2-30-10 MG/5ML Syrup 5-10 mL Orally 4 [...] day , Not-Taking Vitamin A & D 36546-620 UNIT Tablet as directed Orally , Not-Taking [...] URI - J06.9 (Primary) 2 . B [place] 22.0-22.9, adult - Z68.22 ? Plan: * [...] Procedure Codes: 3 6416 CAPILLARY BLOOD DRAW, 71117 CBC WITH AUTO DIFF, 1036F TOBACCO NON-USER, 3074F SYST BP LT 130 MM HG, 3078F DIAST BP < 80 MM HG * Follow Up: p rn * Images: Billing Information: * Visit Code: 98278 Office Visit, Est Pt., Level 3. * Procedure Codes: 86473 CAPILLARY BLOOD DRAW. 30715 CBC WITH AUTO DIFF. 1036F TOBACCO NON-USER. 3074F SYST BP LT 130 MM HG. 3078F DIAST BP < 80 MM HG. * Electronic signature of FILOMENA Coles on 07/23/2025 at 08:50 AM EST Sign off status: Pending * Provider: FILOMENA Hewitt Date: 0 03/27/2025 Generated for Renetta aviles/Teresa/eTransmitting on: 1 09/22/2024 08:50 AM EST History and Physical Notes * [...]
--- OUTSIDE RECORDS SUMMARY | 2025-04-09 08:45 | XMS_ITS ---
Author Organization [facility] Address [facility] [facility] [address] [facility] [address] [place] [phone] Care Team Providers Care Stud Dairy Cattle Farmer Name Role Phone Arlyn Banda Primary Care Provider Julia Arevalo [phone] Allergies Allergen (clinical drug ingredient) Drug/Non Drug Allergy documented on EMR Reaction Allergy Type Onset Date Status codeine Codeine Unknown Drug Allergy Active Penicillin Anaphylaxis Drug Allergy Acti ve tetracycline Tetracycline Unknown Drug Allergy A ctive Results Component Value Reference Range Notes CT Scan : Sinuses, without c ontrast Reviewed date:04/28/2025 09:25:17 AM Interpretation:mild mucoperiosteal thickening Performing Lab: Notes/Report: mild mucoperiosteal thickening REASON FOR VISIT pressure in ears and nose Medications Medication SIG (Take, Route, Fr equency, Duration) Notes Start Date End Date Status Azithromycin 500 MG 1 tablet Orally Once a day; Duration: 3 days refill, then weekly dose 04/09/2025 Active Fexofenadine HCl 180 MG 1 Orally Once a day; Duration: 30 days 04/09/2025 Active Vital Signs Weight 135.2 lbs 04/09/2025 Blood pressure systolic 110 mm Hg 04/09/20 25 Blood pressure diastolic 70 mm Hg 025 Heart Rate 88 /min 04/09/2025 Height 65 in 04/09/2025 BMI 22.5 kg/m2 04/09/2025 Encounters Encounter Location Date Provider Diagnosis [facility] [address] [place] [phone] 04/09/2025 Arlyn Banda Acute sinusitis, recurrence not specified, unspecified location J01.90 and BMI 22.0-22.9, adult Z68.22 Assessments Encounter Date Diagnosis (ICD Code) Assessment Notes Treatment Notes Treatment Clinical Notes Section Notes 04/09/2025 Acute sinusitis, recurrence not specified, unspecified location (ICD-10 - J01.90) 04/09/2025 BMI 22.0-22.9, adult (ICD-10 - Z68.22) Plan Of Treatment Medication Medication Name Sig Start Date Stop Date Notes Azithromycin 500 MG 1 tablet Orally Once a day; Duration: 3 days 04/09/2025 Fexofenadine HCl 180 MG 1 Orally Once a day; Duration: 30 days 04/09/2025 Next Appt Details Follow Up: 2 Weeks, Reason: Progress Notes * NAILA BARRONOB:1960 (65 yo F)Acc No.[id number]:04/09/2025 Progress Notes Patient: JUANJOSE LOW Provider: Arlyn Banda M.D. :1960 A ge:64 Y S ex:Female Date:04/09/2025 [address] [facility] [address], [id number] Subjective: * Chief Complaints: * 1 . Pressure in ears and nose. * HPI: E NT/respiratory: The patient is here today with c/o sinus pain and pressure. Pt states this is the 4th time since the first of March she has had pressure in the frontal sinuses and into both ears. Pt states she just finished the Levofloxacin. Before that she had Cefdinir and before that she had a z pack. 64 year old female presents with c/o sore throat f eels scratchy. c/o post nasal drainage. c/o facial pain/pressure. Denies : Fever. D enies : ear pain. * ROS: D ERMATOLOGY: no R jaime. [...] yes. Travel ouside [place]: no. * Medications: D iscontinued Magnesium 250 MG Tablet 1 tablet with a meal Orally Once a day , Discontinued Estradiol 0.05 MG/24HR Patch Twice Weekly 1 patch to skin Transdermal Two times a Week , Discontinued Progesterone 100 MG Capsule 1 capsule at bedtime Orally Once a day , Discontinued Wmvrejvq-Zbceafjtw-WV 2-30-10 MG/5ML Syrup 5-10 mL Orally 4 times a day, prn , Discontinued levoFLOXacin 500 MG Tablet 1 tablet Orally Once a day , Discontinued Cefdinir 300 MG Capsule 1 cap(s) Orally Two times a day , Discontinued Zithromax Z-Bishnu 250 MG Tablet 2 pills first day then one daily for 4 days orally as directed , Discontinued Vitamin K 100 MCG Tablet 1 tablet Orally Once a day , Discontinued Vitamin A & D 05083-865 UNIT Tablet as directed Orally , Discontinued Vitamin B12 1000 MCG Tablet Extended Release 1 tablet Orally Once a day , Discontinued CareTouch CPAP & BIPAP Hose MACHINE AND SUPPLIES 1 DIRECTED , Notes to Pharmacist: *Please review and pick correct strength-formulation from Medispan options. If intended option is not shown, discontinue and re-order from Quick Search*, Medication List reviewed and reconciled with the patient * Allergies: C odeine, Penicillin: Anaphylaxis, Tetracycline. Objective: * Vitals: W t: 135.2, Temp: 97.8, BP: 110/70, HR: 88, O2 Sat: 98% on RA, Nurse: RAFA, Ht: 65, BMI:22.5. * Examination: G eneral Examination: General Appearance: N AD. H EENT: u nremarkable, PERRLA, Sclera and conjunctiva clear, TM's translucent, nares patent. O ral cavity: n o lesions, mucosa moist and WNL, no erythema. N manish: s upple, no lymphadenopathy. C hest: n ormal shape and expansion. H eart: R SR. L ungs: c lear to auscultation. N eurologic Exam: I ntact, gait normal. S kin: n ormal, no rash. P eripheral pulses: n ormal . E xtremities: n o leg edema. Assessment: * Assessment: 1. A cute sinusitis, recurrence not specified, unspecified location - J01.90 (Primary) ? 2 . B [place] 22.0-22.9, adult - Z68.22 Plan: * Treatment: * Procedure Codes: 1 036F TOBACCO NON-USER, 3074F SYST BP LT 130 MM HG, 3078F DIAST BP < 80 MM HG * Follow Up: 2 Weeks * Images: Billing Information: * Visit Code: 11243 Office Visit, Est Pt., Level 3. * Procedure Codes: 1036F TOBACCO NON-USER. 3074F SYST BP LT 130 MM HG. 3078F DIAST BP < 80 MM HG. * Electronic signature of Arlyn Banda MD on 07/23/2025 at 08:50 AM EST Sign off status: Pending * Provider: Arlyn Banda M.D. Date: 0 04/09/2025 Generated for Renetta aviles/Teresa/Amrit on: 09/22/2024 08:50 AM EST History and Physical Notes * HPI (History of Present Illness) Category Sub-Category Detail Notes Category Not es ENT/respiratory sore throat feels scratchy facial pain/pressure ear pain Fever post nasal drainage Examination Category Sub-Category Detail Notes Category Not es General Examination HEENT: unremarkable , PERRLA, Sclera and conjunctiva clear, TM's translucent, nares patent Heart: RSR Lungs: clear to auscultatio n Extremities: no leg edema General Appearance: NAD Skin: normal, no rash Neurologic Exam: Intact, gait normal Neck: supple, no lymphaden opathy Oral cavity: no lesions, mucosa m oist and WNL, no erythema Peripheral pulses: normal Chest: normal shape and exp ansion
--- OUTSIDE RECORDS SUMMARY | 2025-04-23 04:30 | XMS_ITS ---
Author Organization [facility] Address [address] [place] [id number] Care Team Providers Care Welcome Hostess Name Role Phone Arlyn Banda Primary Care Provider Julia Arevalo Unavailable [phone] Halley Erazo Unavailable [phone] Allergies Allergen (clinical drug ingredient) Drug/Non Drug [...] Interpretation: Performing Lab: Notes/Report: Test performed by [facility], [facility] [address] [place] [address] , [address], [place] [address] Dell Wilder MD, Ram Press Operator CLIA: [id number] Vitamin B12 131 495-4268 pg/mL P-Comprehensive Metabolic Pa michael (CMP) Reviewed date:04/29/2025 01:21:29 PM Interpretation: Performing Lab: Notes/Report: Test performed by [facility] [address] [place] [address] , [address], [place] [address] Dell Wilder MD, [employer] Operator CLIA: [id number] Sodium 141 135-145 mmol/L Potassium 4.8 3.5-5.3 [...] Interpretation: Performing Lab: Notes/Report: Test performed by [facility] [address] [place] [address] , [place] [address] Dell Wilder MD, [employer] Operator CLIA: [id number] Jensen Ochoa Virus (EBV) VCA Antibodies IgG 7.3 <0.9 AI Jensen Ochoa Virus (EBV) VCA Antibodies IgM <0.2 <0.9 AI P-T4 Free (thyroxine) Reviewed date:04/29/2025 01:21:29 PM Interpretation: Performing Lab: Notes/Report: Test performed by [facility] [address] [place] [address] , [place] [address] Dell Wilder MD, [employer] CLIA: [id number] Thyroxine Free (free T4) 5.79 0.86-1.76 ng/dL P-TSH reflex to FT4 Reviewed date:04/29/2025 01:21:29 PM Interpretation: Performing Lab: Notes/Report: Test performed by [facility] [address] [place] [address] , [address], [place] [address] Dell Wilder MD, [employer] Operator CLIA: [id number] TSH reflex to FT4 <0.005 0.43-5.25 mU/L P-Vitamin D 25-Hydroxy Reviewed date:04/29/2025 01:21:29 PM Interpretation: Performing Lab: Notes/Report: Test performed by [facility] [address] [place] [address] , [address], [place] [address] Dell Wilder MD, [employer] Operator CLIA: [id number] Vitamin D 25-Hydroxy 34.1 30.0-100.0 ng/mL Interpretation [...] Insomnia disorder related to another mental disorder (74133616) Psychophysiological insomnia (F51.04) Active confirmed Vital Signs Weight 134.2 lbs 04/23/2025 Blood pressure systolic 118 mm Hg 04/23/20 25 Blood pressure diastolic 66 mm Hg 025 Heart Rate 101 /min 04/23/2025 Height 65 in 04/23/2025 BMI 22.33 kg/m2 04/23/2025 Encounters Encounter Location Date Provider Diagnosis [facility] [address] [facility] [address] [place], [place] [id number] 04/23/2025 Halley Erazo Acute sinusitis, rec urrence [...] phone to repo rt test results, Reason: Progress Notes * NAILA BARRONOB:1960 (65 yo F)Acc No.[id number]:04/23/2025 Progress Notes Patient: JUANJOSE LOW Provider: FILOMENA Hewitt :1960 A ge:64 Y S ex:Female Date:04/23/2025 Address:[address], [id number] Pcp:Arlyn Banda Subjective: * Chief Complaints: * [...] 101, O2 Sat: 96% on ra, Nurse: pe, Ht: 65, BMI:22.33. * Examination: E NT/Respiratory: [...] easonal allergies - J30.2 5 . B [place] 22.0-22.9, adult - Z68.22 Plan: * Treatment: [...] AM)* Value Reference Range V itamin B12 786 045-3639 - pg/mL * Halley Erazo 04/23/2025 0 9:53:31 AM EDT >room 10, purple Inpatient labs reviewed at [facility] ?LAB: P-Comprehensive Metabolic Panel (CMP) (Collection Date [...] by Creatinine 95 >59 - mL/min/1.73m2 * Halley Erazo 04/23/2025 0 9:53:31 AM EDT >room 10, purple Inpatient labs reviewed at [facility] ?LAB: P-Jensen Ochoa Virus (EBV) VCA Antibodies IgG IgM (Collection Date & Time - 04/23/2025 09:05 AM)* Value Reference Range E pstein Ochoa Virus (EBV) VCA Antibodies IgG 7.3 H <0.9 - AI * E pstein Ochoa Virus (EBV) VCA Antibodies IgM <0.2 <0.9 - AI * Halley Erazo 04/23/2025 0 9:53:31 AM EDT >room 10, purple Inpatient labs reviewed at [facility] ?LAB: P-TSH reflex to FT4 (Collection Date & Time - 04/23/2025 09:05 AM)* Value Reference Range T SH reflex to FT4 <0.005 L 0.43-5.25 - mU/L * Halley Erazo 04/23/2025 0 9:53:31 AM EDT >room 10, purple Inpatient labs reviewed at [facility] ?LAB: P-Vitamin D 25-Hydroxy (Collection Date & Time - 04/23/2025 09:05 AM) * Value Reference Range V itamin D 25-Hydroxy 34.1 30.0-100.0 - ng/mL * Halley Erazo 04/23/2025 0 9:53:31 AM EDT >room 10, purple Inpatient labs reviewed at [facility] 3.?Psychophysiological insomnia? Start hydrOXYzine HCl Tablet, 25 [...] 5.79 H 0.86-1.76 - ng/d L * [facility], IT support 04/28/2025 02:25:07 : This order was created by the Interface. Inpatient labs reviewed at [facility] * Procedure Codes: 8 5025 CBC WITH AUTO DIFF, 3074F SYST BP LT 130 MM HG, 3078F DIAST BP < 80 MM HG * Follow Up: v ia phone to report test results * Images: Billing Information: * Visit Code: 26107 Office Visit, Est Pt., Level 4. * Procedure Codes: 46045 CBC WITH AUTO DIFF. 3074F SYST BP LT 130 MM HG. 3078F DIAST BP < 80 MM HG. * Electronic signature of FILOMENA Coles on 07/23/2025 at 08:51 AM EST Sign off status: Pending * Provider: FILOMENA Hewitt Date: 0 04/23/2025 Generated for Renetta ng/Faxing/eTransmitting on: 1 09/22/2024 08:51 AM EST History [...]
--- OUTSIDE RECORDS SUMMARY | 2025-05-06 05:15 | XMS_ITS ---
Author Organization [facility] Address [address] [place] [id number] Care Team Providers Care Armature Winder Repair Helper Name Role Phone Arlyn Banda Primary Care Provider Julia Arevalo Unavailable [phone] Halley Erazo Unavailable [phone] Allergies Allergen (clinical drug ingredient) Drug/Non Drug [...] date:05/07/2025 05:08:51 PM Interpretation:Normal Performing Lab: Notes/Report: Test performed by [employer] [address] [place] [address] , [address], [place] [address] Dell Wilder MD, Senior Net Developer CLIA: [id number] Sodium 140 135-145 mmol/L Potassium 5.2 3.5-5.3 [...] Interpretation:6.69 Performing Lab: Notes/Report: Test performed by [employer] [address] [place] [address] , [address], [place] [address] Dell Wilder MD, Senior Net Developer CLIA: [id number] Thyroxine Free (free T4) 6.69 0.86-1.76 ng/dL P-TSH reflex to FT4 Reviewed date:05/07/2025 05:08:51 PM Interpretation:<0.005 Performing Lab: Notes/Report: Test performed by [employer] [address] [place] [address] , [address], [place] [address] Dell Wilder MD, Senior Net Developer CLIA: [id number] TSH reflex to FT4 <0.005 0.43-5.25 mU/L Holter Monitor- 48 hour Reviewed date:05/22/2025 10:12:42 AM Interpretation: Performing Lab: Notes/Report: Reason For Referral Diagnosis 1 Hiatal hernia (K44.9 ) Referral Organization [facility] Referring Provider First Name Halley Referring Provider Last Name Kacey Referring Provider Speciality Physician Rail Walker Referred Provider Specialty General Surg april General Notes Pt needs an appt [facility] h Addis Mayen Brynn 05/06/2025 [...] 05/06/2025 Encounters Encounter Location Date Provider Diagnosis [facility] [address] [place], [place] [id number] 05/06/2025 Halley Crowdy Diverticulitis K57.9 2 ; [...] Appt Details Follow Up: 1 Week, Reason: Progress Notes * ARISTIDES BARRON:1960 (65 yo F)Acc No.[id number]:05/06/2025 Patient: JUANJOSE LOW Provider: FILOMENA Hewitt :1960 A ge:65 Y S ex:Female Date:05/06/2025 Address:[address] [place] [address], [place], [id number] Pcp:Arlyn Banda Subjective: * Chief Complaints: * 1 . [facility] discharge f/u. * HPI: H PI: Patient is here today for A Transition of Care Visit. Discharge from the following Facility: admitted to [facility] 04/26/2025 for Sepsis and Diverticulitis, Discharge [...] 125, O2 Sat: 96% on RA, Nurse: beth, Ht: 65, BMI:21.03. * Examination: G eneral [...] 05/06/2025 10 :42:55 AM EDT >room 5, Anita Oden 05/07/2025 05:08:44 PM EDT > See phone [...] 10 :42:55 AM EDT >room 5, purple Theodore, Anita 05/07/2025 05:08:44 PM EDT > See phone [...] 6.69 H 0.86-1.76 - ng/d L * [facility] [place], IT support 05/07/2025 08:35:05 : This order was created by the Interface. Theodore, Anita 05/07/2025 05:08:44 PM EDT > See phone encounter * Procedure Codes: 9 9495 TRANS CARE MGMT 14 DAY DISCH, 1111F DSCHR MED/CURENT MED MERGE, 20783 CBC WITH AUTO DIFF, 69190 VENIPUNCT, ROUTINE* * Follow Up: 1 Week * Images: Billing Information: * Visit Code: 52673 Office Visit, Est Pt., Level 4. * Procedure Codes: 79056 TRANS CARE MGMT 14 DAY DISCH. 1111F DSCHR MED/CURENT MED MERGE. 92488 CBC WITH AUTO DIFF. 88253 VENIPUNCT, ROUTINE*. * Electronic signature of FILOMENA Coles on 07/23/2025 at 08:50 AM EST Sign off status: Pending * Provider: FILOMENA Hewitt Date: 0 05/06/2025 Generated for Printi ng/Faxing/eTransmitting on: 1 09/22/2024 08:50 AM EST History and Physical Notes * HPI (History of Present Illness) Category Sub-Category Detail Notes Category Not es HPI Patient is here today for A [facility] sition of Care Visit. Discharge from the following Facility: admitted to [facility] 04/26/2025 for Sepsis and Diverticulitis, Discharge [...]
--- OUTSIDE RECORDS SUMMARY | 2025-05-08 08:00 | XMS_ITS ---
Author Organization [facility] Address [address] [place] [id number] Care Team Providers Care Sharepoint Engineer Name Role Phone Arlyn Banda Primary Care Provider [phone] Julia Arevalo Unavailable [phone] Halley Erazo Unavailable [phone] Results Component Value Reference Range Notes CBC [...] Interpretation:Thyroglobulin Antibody >4000 H Performing Lab: Notes/Report: Test performed by [employer], [facility] [address] [place] [address] , [address], [place] [address] Dell Wilder MD, Bridge Manager CLIA: [id number] Thyroid Peroxidase Antibody <9 <9-34 IU/mL An [...] Encounter Location Date Provider Diagnosis [facility] [address] [facility] [address] [facility] [address] [place] [id number] 05/08/2025 Halley Kacey Palpitations R00.2 Assessments Encounter Date Diagnosis (ICD Code) Assessment Notes Treatment Notes Treatment Clinical Notes Section Notes 05/08/2025 Palpitations (ICD-10 - R00.2) Plan Of Treatment No Information Progress Notes * NAILA BARRONOB:1960 (65 yo F)Acc No.[id number]:05/08/2025 Patient: JUANJOSE LOW Provider: FILOMENA Hewitt :1960 A ge:65 Y S ex:Female Date:05/08/2025 Address:[address] [place] [address], [id number] Pcp:Arlyn Banda Subjective: * Chief Complaints: * [...] p lat 580 100 - 400 * AxelGeenaSara 05/08/2025 03:03:3 1 PM EDT >Halley Erazo 05/08/2025 05:38:29 PM EDT > * Procedure Codes: 8 5025 CBC WITH AUTO DIFF * Images: Billing Information: * Visit Code: * Procedure Codes: 76781 CBC WITH AUTO DIFF. * Electronic signature of FILOMENA Coles on 07/23/2025 at 08:50 AM EST Sign off status: Pending * Provider: FILOMENA Hewitt Date: 0 05/08/2025 Generated for Renetta aviles/Teresa/Amrit on: 1 09/22/2024 08:50 AM EST
--- OUTSIDE RECORDS SUMMARY | 2025-05-13 05:00 | XMS_ITS ---
Author Organization [facility] Address [address] [facility] 36 [facility] [address] [place] [id number] Care Team Providers Care Top Waddy Name Role Phone Arlyn Banda Primary Care Provider Julia Arevalo Unavailable [phone] Halley Erazo Unavailable [phone] Allergies Allergen (clinical drug ingredient) Drug/Non Drug [...] Status W/U Status Risk Notes Problem Thyroiditis (62332200) Thyroiditis (E06.9) Active confirmed Vital Signs Weight 127 lbs 05/13/2025 Blood pressure systolic 128 mm Hg 05/13/20 25 Blood pressure diastolic 64 mm Hg 025 Heart Rate 102 /min 05/13/2025 Height 65 in 05/13/2025 BMI 21.13 kg/m2 05/13/2025 Encounters Encounter Location Date Provider Diagnosis [facility] 36 [facility] [address] [place] [id number] 05/13/2025 Halley Kacey Hyperthyroidism E05. 90 ; Thyroiditis E06.9 ; [...] Details Follow Up: with endocrinolog y, Reason: Progress Notes * NAILA BARRONOB:1960 (65 yo F)Acc No.[id number]:05/13/2025 Progress Notes Patient: JUANJOSE LOW Provider: FILOMENA Hewitt :1960 A ge:65 Y S ex:Female Date:05/13/2025 [address], [place] Pcp:Arlyn Banda Subjective: * Chief [...] T achycardia - R00.0 4 . B [place] 21.0-21.9, adult - Z68.21 ? Plan: * [...] Dr Aponte 11/25/24. * Follow Up: w [facility] endocrinology * Images: Billing Information: * Visit Code: 87815 Office Visit, Est Pt., Level 4. * Procedure Codes: 1036F TOBACCO NON-USER. 3074F SYST BP LT 130 MM HG. 3078F DIAST BP < 80 MM HG. 3017F COLORECTAL CA SCREEN DOC REV. * Electronic signature of FILOMENA Coles on 07/23/2025 at 08:50 AM EST Sign off status: Pending * Provider: FILOMENA Hewitt Date: 0 05/13/2025 Generated for Printi ng/Fahsanong/eTransmitting on: 1 09/22/2024 08:50 AM EST History [...]
--- OUTSIDE RECORDS SUMMARY | 2025-07-17 04:45 | XMS_ITS ---
Author Organization Josseline Address [address] [facility] 36 [facility] [address] [place] [id number] Care Team Providers Care Check Cashier Name Role Phone Arlyn Banda Primary Care Provider Julia Arevalo Unavailable [phone] Halley Erazo Unavailable [phone] Allergies Allergen (clinical drug ingredient) Drug/Non Drug Allergy documented on EMR Reaction Allergy Type Onset Date Status codeine Codeine Unknown Drug Allergy Active Penicillin Anaphylaxis Drug Allergy Acti ve tetracycline Tetracycline Unknown Drug Allergy A ctive REASON FOR VISIT tick Medications Medication SIG (Take, Route, Frequency, Duration) Notes Start Date End Date Status Metoprolol Succinate ER 25 MG 1/2 tab Orally Once a day; Duration: 30 days 05/08/2025 Active methIMAzole 10 MG 1 tablet Orally Once a day; Duration: 30 days 05/13/2025 Active Doxycycline Monohydrate 100 MG 1 capsule Orally twice a day; Duration: 10 days 07/17/2025 Active Vital Signs Weight 132 lbs 07/17/2025 Blood pressure systolic 128 mm Hg 07/17/20 25 Blood pressure diastolic 70 mm Hg 025 Heart Rate 66 /min 07/17/2025 Height 65 in 07/17/2025 BMI 21.96 kg/m2 07/17/2025 Encounters Encounter Location Date Provider Diagnosis [facility] 36 [facility] [address] [place] [id number] 07/17/2025 Halley Erazo Tick bite W57 .XXXA Assessments Encounter Date Diagnosis (ICD Code) Assessment Notes Treatment Notes Treatment Clinical Notes Section Notes 07/17/2025 Tick bite (ICD-10 - W57.XXXA) Patient is unsure if she is actually allergic to tetracycline. She only broke out in a rash when she took tetracycline with codeine. She had codeine on a separate occasion and broke out in a rash. Will try the doxycycline. Plan Of Treatment Medication Medication Name Sig Start Date Stop Date Notes Doxycycline Monohydrate 100 MG 1 capsule Orally twice a day; Duration: 10 days 07/17/2025 Treatment Notes Assessment Notes Tick bite Patient is unsure if she is actually allergic to tetracycline. She only broke out in a rash when she took tetracycline with codeine. She had codeine on a separate occasion and broke out in a rash. Will try the doxycycline. Next Appt Details Follow Up: prn, Reason: Progress Notes * NAILA BARRONOB:1960 (65 yo F)Acc No.[id number]:07/17/2025 Progress Notes Patient: JUANJOSE LOW Provider: FILOMENA Hewitt :1960 A ge:65 Y S ex:Female Date:07/17/2025 Address:[address] [facility] [id number] Pcp:Arlyn Banda Subjective: * Chief Complaints: * 1 . Tick. * HPI: D ermatology: Pt states she felt something on her right flank this morning and noticed a tick. She tried to remove it and applied alochol, but was unsuccessful. She is here today to have it removed. Area around tick bite is noted to be erythematous. * ROS: C ONSTITUTIONAL: no F ever. n o W eakness. G ASTROENTEROLOGY: no N ausea. n o V omiting. n o D iarrhea.? U ROLOGY: no B lood in urine. n o F requent urination. ? * Medical History: K idney stones, Depression, [...] 1/2 tab Orally Once a day , Taking methIMAzole 10 MG Tablet 1 tablet Orally Once a day , Discontinued levoFLOXacin 500 MG Tablet 1 tablet Orally Once a day , Medication List reviewed and reconciled with the patient * Allergies: C odeine, Penicillin: Anaphylaxis, Tetracycline. Objective: * Vitals: W t: 132, Temp: 97.7, BP: 128/70, HR: 66, Nurse: beth, Ht: 65, BMI:21.96. * Examination: G eneral Examination: General Appearance: N AD. C hest: n ormal shape and expansion. H eart: R SR. L ungs: c lear to auscultation. S kin: S mall tick in the skin on the right torso, it was removed with splinter forceps, there is erythema around the bite. Assessment: * Assessment: 1. T ick bite - W57.XXXA (Primary) Plan: * Treatment: * Follow Up: p rn * Images: Billing Information: * Visit Code: 63187 Office Visit, Est Pt., Level 3. * Procedure Codes: * Electronic signature of FILOMENA Coles on 07/23/2025 at 08:51 AM EST Sign off status: Pending * Provider: FILOMENA Hewitt Date: 09/16/2024 Generated for Renetta aviles/Teresa/eTransmitting on: 1 09/22/2024 08:51 AM EST History and Physical Notes * Examination Category Sub-Category Detail Notes Category Not es General Examination Heart: RSR Lungs: clear to auscultatio n General Appearance: NAD Skin: Small tick in the sk in on the right torso, it was removed with splinter forceps, there is erythema around the bite Chest: normal shape and exp ansion
--- OUTSIDE RECORDS SUMMARY | 2025-07-23 08:51 | XMS_ITS | Patient Health Record ---
Author Organization [facility] Address [address] [place] [id number] Care Team Providers Care Housekeeper Caregiver Name Role Phone Arlyn Banda Primary Care Provider [phone] Julia Arevalo Unavailable [phone] Sagrario Da Silva Unavailable [phone] Halley Erazo Unavailable [phone] Allergies Allergen (clinical drug ingredient) Drug/Non Drug [...] Interpretation: Performing Lab: Notes/Report: Test performed by [facility] [address] [place] [address] , [address], [place] [address] Dell Wilder MD, Core Java Engineer CLIA: [id number] Vitamin B12 983 502-1998 pg/mL P-Comprehensive Metabolic Pa michael (CMP) Reviewed date:04/29/2025 01:21:29 PM Interpretation: Performing Lab: Notes/Report: Test performed by [facility] [address] [place] [address] , [address], [place] [address] Dell Wilder MD, Core Java Engineer CLIA: [id number] Sodium 141 135-145 mmol/L Potassium 4.8 3.5-5.3 [...] Interpretation: Performing Lab: Notes/Report: Test performed by [facility] [address] , [place] [address] Dell Wilder MD, Core Java Engineer CLIA: [id number] Jensen Ochoa Virus (EBV) VCA Antibodies IgG 7.3 <0.9 AI Jensen Ochoa Virus (EBV) VCA Antibodies IgM <0.2 <0.9 AI P-T4 Free (thyroxine) Reviewed date:04/29/2025 01:21:29 PM Interpretation: Performing Lab: Notes/Report: Test performed by [facility] [address] , [place] [address] Dell Wilder MD, Core Java Engineer CLIA: [id number] Thyroxine Free (free T4) 5.79 0.86-1.76 ng/dL P-TSH reflex to FT4 Reviewed date:04/29/2025 01:21:29 PM Interpretation: Performing Lab: Notes/Report: Test performed by [facility] [address] , [place] [address] Dell Wilder MD, Core Java Engineer CLIA: [id number] TSH reflex to FT4 <0.005 0.43-5.25 mU/L P-Vitamin D 25-Hydroxy Reviewed date:04/29/2025 01:21:29 PM Interpretation: Performing Lab: Notes/Report: Test performed by [facility] [address] [place] [address] , [place] [address] Dell Wilder MD, Core Java Engineer CLIA: [id number] Vitamin D 25-Hydroxy 34.1 30.0-100.0 ng/mL Interpretation [...] Interpretation:Normal Performing Lab: Notes/Report: Test performed by [facility] [address] [place] [address] , [address], [place] [address] Dell Wilder MD, Core Java Engineer CLIA: [id number] Sodium 140 135-145 mmol/L Potassium 5.2 3.5-5.3 [...] Interpretation:6.69 Performing Lab: Notes/Report: Test performed by [facility] [address] [place], [place] [address] [place] , [address], [place] [address] Dell Wilder MD, Core Java Engineer CLIA: [id number] Thyroxine Free (free T4) 6.69 0.86-1.76 ng/dL P-TSH reflex to FT4 Reviewed date:05/07/2025 05:08:51 PM Interpretation:<0.005 Performing Lab: Notes/Report: Test performed by [facility] [address] [place] [address] [place] [address] Dell Wilder MD, Core Java Engineer CLIA: [id number] TSH reflex to FT4 <0.005 0.43-5.25 mU/L [...] H Performing Lab: Notes/Report: Test performed by [facility] [address] [place] [address] [place] [address] Dell Wilder MD, Core Java Engineer CLIA: [id number] Thyroid Peroxidase Antibody <9 <9-34 IU/mL An [...] methods or kits cannot be directly compared. H-CBC Reviewed date:04/29/2025 01:21:29 PM Interpretation: Performing Lab: Notes/Report: WBC 10.0 4.8-10.8 K/mm3 RBC 4.15 4.20-5.40 M/mm3 HGB 13.3 12.2-16.2 g/dL HCT 38.3 37.0-47.0 % MCV 92.3 81-99 fl MCH 32.0 27.0-31.2 pg MCHC 34.7 31.8-35.4 g/dL RDW-SD 39.7 RDW 11.7 11.5-17.5 % PLT 345 142-424 K/mm3 Delta: 275 on 04/28/25-54 MPV 9.3 7.4-10.4 fl NE% 69.5 37.0-80.0 % LY% 18.5 10-50 % MO% 10.0 1.7-9.3 % EO% 1.3 0.1-12.0 % BA% 0.2 0.1-2.0 % NRBC% 0 IG% 0.5 NE# 7.0 1.8-7.8 K/mm3 LY# 1.9 0.7-4.5 K/mm3 MO# 1.0 0.1-1.0 K/mm3 EO# 0.1 0.0-0.4 Kmm3 BA# 0.0 0-0.2 K/mm3 NRBC# 0 IG# 0.05 xultrasound : thyroid Reviewed date:05/15/2025 12:13:04 AM Interpretation: Performing Lab: Notes/Report: H-CMP Reviewed date:04/28/2025 09:25:17 AM Interpretation: Performing [...] 1.1-1.8 ALP 93 38-126 U/L H-CBC Reviewed date:04/28/2025 09:25:17 AM Interpretation: Performing [...] 0.0 0-0.2 K/mm3 NRBC# 0 IG# 0.09 Pathology evaluation Reviewed date:11/28/2024 05:29:41 PM Interpretation:Negative Performing Lab: Notes/Report: Negative Medications Medication SIG (Take, Route, Frequency, Duration) Notes Start Date End Date Status Metoprolol Succinate ER 25 MG 1/2 tab Orally Once a day; Duration: 30 days 05/08/2025 Active methIMAzole 10 MG 1 tablet Orally Once a day; Duration: 30 days 05/13/2025 Active Doxycycline Monohydrate 100 MG 1 capsule Orally twice a day; Duration: 10 days 07/17/2025 Active Immunizations Vaccine Route Administration Date Status [...] Status W/U Status Risk Notes Problem Diverticulitis (50517443) Diverticulitis (K57.92) Active confirmed Problem Seasonal allergy (353634366) Seasonal allergies (J30.2) Active confirmed Problem Sciatic nerve lesion (859615242) Piriformis syndrome of right side (G57.01) Active confirmed Problem Hyperthyroidism (13753926) Hyperthyroidism (E05.90) Active confirmed Problem Acute constipation (636328530) Acute constipation (K59.00) Active confirmed Problem Chronic pain (88058807) Other chronic pain (G89.29) Active confirmed Problem Diverticulitis of colon (257983617) Diverticulitis of large intestine without perforation or abscess without bleeding (K57.32) Active confirmed Problem Thyroiditis (69844511) Thyroiditis (E06.9) Active confirmed Problem Insomnia disorder related to another mental disorder (07348227) Psychophysiological insomnia (F51.04) Active confirmed Problem Sleep disorder (23042700) Sleep disorder (G47.9) Active confirmed Problem Obstructive sleep apnea syndrome (43896978) GALEN (obstructive sleep apnea) (G47.33) Active confirmed Problem Insomnia (503710142) Insomnia, unspecified type (G47.00) Active confirmed Problem Hemorrhage of colon due to diverticulosis (265300762047146) Diverticulosis of large intestine with hemorrhage (K57.31) Active confirmed Problem Pain of right hip joint (215061975185373) Pain of right hip joint (M25.551) Active confirmed Problem Skin sensation disturbance (28344439) Paresthesia of both lower extremities (R20.2) Active confirmed Problem Menopausal symptom (99115081) Hot flashes due to menopause (N95.1) Active confirmed Vital Signs Heart Rate 66 /min 07/17/2025 Blood pressure diastolic 70 mm Hg 07/17/2025 Height 65 in 07/17/2025 Blood pressure systolic 128 mm Hg 07/17/2025 Weight 132 lbs 07/17/2025 BMI 21.96 kg/m2 07/17/2025 Encounters Encounter Location Date Provider Diagnosis [place] [address] [place] [facility] [address] [place] [id number] 03/09/2025 Sagrario Da Silva Acute sinusitis J01. 90 and BMI 23.0-23.9, adult Z68.23 [facility] [address] [place] [facility] [address] [place] [id number] 03/20/2025 Halley Crowdy Acute URI J06.9 [facility] [address] [place] [facility] [address] [place] [id number] 03/27/2025 Halley Crowdy Acute URI J06.9 and BMI 22.0-22.9, adult Z68.22 [facility] [address] [place] [facility] [address] [place] [id number] 04/09/2025 Arlyn Banda Acute sinusitis, recurrence not specified, unspecified location J01.90 and BMI 22.0-22.9, adult Z68.22 [facility] [address] [place] [facility] [address] [place] [id number] 04/23/2025 Halley Crowdy Acute sinusitis, recurrence not specified, unspecified location J01.90 ; Other fatigue R53.83 ; Psychophysiological insomnia F51.04 ; Seasonal allergies J30.2 and BMI 22.0-22.9, adult Z68.22 [facility] [address] [place] [facility] [address] [place] [id number] 05/06/2025 Halley Crowdy Diverticulitis K57.9 2 ; Palpitations R00.2 and Hiatal hernia K44.9 [facility] [address] [place] [facility] [address] [place] [id number] 05/08/2025 Halley Crowdy Palpitations R00.2 [facility] [address] [facility] [address] [place] [id number] 05/13/2025 Halley Crowdy Hyperthyroidism E05. 90 ; Thyroiditis E06.9 ; Tachycardia R00.0 and BMI 21.0-21.9, adult Z68.21 [facility] [address] [place], [place] [id number] 07/17/2025 Halley Crowlincoln Tick bite W57.XXXA [facility] [address] [place], [place] [id number] 03/23/2025 Arlyn Banda Encounter for screen ing for malignant neoplasm of lung Z12.2 and Encounter for screening for malignant neoplasm of breast Z12.31 [facility] [address] [place], [place] [id number] 04/23/2025 Halley Austindy [facility] [address] [place], [place] [id number] 04/29/2025 Halley Crowdy [facility] [address] [place], [place] [id number] 05/07/2025 Halley Erazo [facility] [address] [place], [place] [id number] 05/18/2025 Arlyn Banda Breast cancer screen ing Z12.31 and Encounter for screening for lung cancer Z12.2 [facility] [address] [place], [place] [id number] 05/22/2025 Halley Erazo Assessments Encounter Date Diagnosis (ICD [...] 05/18/2025 Breast cancer screening (ICD-10 - Z12.31) 07/17/2025 Tick bite (ICD-10 - W57.XXXA) Patient is unsure if she is actually allergic to tetracycline. She only broke out in a rash when she took tetracycline with codeine. She had codeine on a separate occasion and broke out in a rash. Will try the doxycycline. 05/13/2025 Tachycardia (ICD-10 - R00.0) HR has been lower but unable to increase the metoprolol due to low BP at home. Will keep patient on 1/2 tab and start on methimazole for hyperthyroidism. 05/06/2025 Hiatal hernia (ICD-1 0 - K44.9) 04/23/2025 Psychophysiological insomnia (ICD-10 - F51.04) 04/23/2025 Seasonal allergies (ICD-10 - J30.2) 05/13/2025 BMI 21.0-21.9, adult (ICD-10 - Z68.21) 04/23/2025 BMI 22.0-22.9, adult (ICD-10 - Z68.22) [...] Insured Coverage Start Date Coverage End Date FOR[facility]LY [facility] [employer] [address] [place] [address] [id number] JUANJOSE BARRON Self - patient is the [...]
--- NOTE | 2025-07-23 09:00 | XR_ITS ---
FINAL REPORT CLINICAL HISTORY: Concerns for low bone mass COMPARISON: None FINDINGS: Using L1-4, the bone mineral density of the spine is 0.919 g/cm2, corresponding to T-score of -1.2. Using the left hip, the bone mineral density of the femoral neck is 0.741 g/cm2, corresponding to a T-score of -1.6. Using the right hip, the bone mineral density of the femoral neck is 0.712 g/cm2, corresponding to a T-score of -1.2. NOTE: T-score: Standard deviation compared with peak bone mass of young adult mean. *Following the recommendations of the International Society of Bone densitometry, classification of hip BMD is based on the lower of two T-scores; total hip or femoral neck. IMPRESSION: Diminished bone mineral density of the lumbar spine and bilateral hips consistent with osteopenia. Reviewed, Interpreted and Dictated by Jairo Fair MD Transcribed by Noemí Pinedo Authenticated and [facility]
== END 2025-07-23 23:59 | disposition home or self-care (01) ==
LOC: RAD 08:47
PROVIDERS: PCP Family Medicine; Visit Provider Student in an Organized Health Care Education/Training Program
DX: M85.88 Other specified disorders of bone density and structure, other site (principal); E05.00 Thyrotoxicosis with diffuse goiter without thyrotoxic crisis or storm
CPT/HCPCS: 77080

== ENCOUNTER 2025-08-12 09:00 | Day surgery (SDC) | payer BC, SELFPAY ==
--- NOTE | 2025-08-04 12:23 | P.HP_ITS ---
History of Present Illness *Admission Date: 08/12/25 *History of present illness: Mrs. Barron is a 65-year-old female who is here for diagnostic EGD. The patient did have a CAT scan that noted a large hiatal hernia with a significant portion of the gastric body in the thorax and lower mediastinum. The patient does admit to having some dysphagia which has been progressively getting worse. She does report some swallowing discomfort and difficulty which occurs about once daily. She has not had to regurgitate food content. She does state that her father had swallowing difficulties requiring esophageal dilation. The examination is deemed medically necessary for diagnostic EGD. The patient has been seen, interviewed and examined prior to the procedure by both myself and the anesthesia provider. [facility] Disclaimer: The information contained in this section may have been updated after the patient was seen, as this information can be updated by other users. Medical History Sepsis Screening for colon cancer Acute effusion of both middle ears Sinusitis Otitis media Ear problem Hormone replacement therapy Migraine Surgical History History of breast biopsy History of tubal ligation History of tonsillectomy Family History Other Dementia Heart disease Social History (Updated 08/12/25 @ 09:28 by Hui Barron RN) Smoking Status: Former smoker alcohol intake: never substance use type: denies use current occupational status: employed and retired Travel in the last 8 weeks?: None household members: spouse housing: house Have you lived/traveled outside US in past 30 days?: No Contact w/someone who lives/traveled outside US past 30 days?: No Exposure to someone with infectious disease in past 14 days?: No Do you have a fever (greater than 100.4 F or 38 C)?: No Have you tested positive for COVID-19?: No Exposed to someone with COVID-19 in past 14 days?: No Do you have a sore throat?: No Do you have a cough?: No Do you have any weakness?: No Are you experiencing any nausea/vomitting?: No Do you have any diarrhea?: No Are you experiencing any unusual bleeding?: No Do you have any muscle aches/pain?: No Do you have any abdominal pain?: No Are you experiencing loss of taste or smell?: No Other Medical History Have you received the Flu Vaccine for this season: No Have you received the Pneumonia Vaccine: No Review of Systems Review of Systems Review of systems (narrative): Negative *Cardiovascular Comments: Negative *Gastrointestinal Comments: Negative *Genitourinary Comments: Negative *Musculoskeletal Comments: Negative *Neurologic Comments: Negative Meds Home Medications and Allergies Home Medications ?Medication ?Instructions ?Recorded ?Confirmed ?Type methimazole 10 mg tablet 20 mg (2 x 10 mg) PO BID #12 0 tabs 06/18/25 08/12/25 Rx propranolol 10 mg tablet 10 mg PO NEEDED Anxiety, 06/18/25 08/12/25 Rx palpitations and tremors #60 tabs New Prescriptions to Start Prescriptions: Allergies Allergy/AdvReac Type Severity Reaction Status Date / Time codeine (CODEINE) Allergy Mild Rash Verified 08/12/25 09:25 Penicillins (PENICILLINS) Allergy Mild Rash Verified 08/12/25 09:25 tetracycline (TETRACYCLINE) Allergy Mild Rash Verified 08/12/25 09:25 Exam *Routine HEENT Exam Head: Present normocephalic Eye: Present EOMI and PERRL ENT: Present mucous membranes moist *Routine Neck Exam Neck: Present supple *Routine Respiratory Exam Respiratory: Present CTA bilaterally *Routine Cardiovascular Exam Cardiovascular: Present RRR *Routine Abdominal Exam Abdominal: Present soft and normoactive bowel sounds; Absent tenderness *Routine Rectal Exam Rectal:: deferred *Routine Genitalia Exam Genitalia:: deferred *Routine Extremities Exam Extremities: Absent cyanosis, clubbing or edema *Routine Skin Exam Skin: Present warm; Absent rash *Routine Neurological Exam Neurological: Present alert and oriented X3 Assessment and Plan *Assessment and plan (1) Dysphagia: Status: Acute Category: Medical Code(s): R13.10 - Dysphagia, unspecified (2) Hiatal hernia: Status: Acute Category: Medical Code(s): K44.9 - Diaphragmatic hernia without obstruction or gangrene Plan A/P: 1. Large hiatal hernia with progressively worsening dysphagia is the preprocedural diagnosis. The patient will be anesthetized/sedated using MAC sedation. The patient has been seen and examined. Cardiac and lung assessment prior to the examination is stable. Proceed with planned diagnostic EGD.
[2025-08-11 13:32] VITALS: BMI 22.4
--- NOTE | 2025-08-12 06:23 | P.PCN_ITS ---
[facility] Procedure Note Date: 08/12/25 Time: 10:03 Procedure Note:: Upper Endoscopy Procedure Report: Esophagogastroduodenoscopy with cold biopsies and TTS balloon dilation Endoscopost: Guille Aponte II, MD Referring Physician: Florentino Banda MD Date of Procedure: August 12, 2025 Equipment: Olympus GIF-1100 standard upper endoscope Sedation: MAC sedation Indications: Mrs. Barron is a 65-year-old female who is here for diagnostic EGD. The patient did have a CAT scan that noted a large hiatal hernia with a significant portion of the gastric body in the thorax and lower mediastinum. The patient does admit to having some dysphagia which has been progressively getting worse. She does report some swallowing discomfort and difficulty which occurs about once daily. She has not had to regurgitate food content. She does state that her father had swallowing difficulties requiring esophageal dilation. The examination is deemed medically necessary for diagnostic EGD. Procedure: Prior to the procedure, a history and physical exam was performed, and patient's medications and allergies were reviewed. The risks, benefits and alternatives of the sedation and procedure were discussed with the patient. All questions were answered and informed consent was obtained. The patient was brought to the procedure room. Patient identification and proposed procedure were verified by the physician and the nurse. The patient was placed in a left lateral decubitus position and the scope was passed under direct vision. Throughout the procedure, the patient's blood pressure, pulse, and oxygen saturations were monitored continuously. The upper GI endoscopy was accomplished without difficulty. The patient tolerated the procedure well. Findings: The scope was passed directly into the upper esophagus and advanced to the third portion of the duodenum. The post bulbar duodenum and duodenal bulb were normal with normal mucosa and conniventes. 2 cold biopsies were taken from the second portion of the duodenum for the disaccharidase assay. The scope was withdrawn through a normal duodenal bulb and pylorus into the stomach. There was very mild linear antral gastropathy. The antrum and body of the stomach were otherwise normal. Upon retroflexion there was a large hiatal hernia with most of the proximal body and fundus of the stomach above the diaphragm. There was a paraesophageal component to this hiatal hernia. The diaphragmatic hiatus was at 40 cm from the incisors. The top of the gastric folds was at 32 cm from the incisors. This is a measured 8 cm hiatal hernia. There were some linear Gabino's erosions. Cold biopsies were taken from the lesser curvature of the stomach. The scope was then withdrawn into the esophagus. There was no evidence of reflux esophagitis or Thibodeaux's. There were no Schatzki's ring, stenosis, webs or strictures. There was no corrugation or furrowing. There were tertiary contractions and mild esophageal dysmotility. The entire esophagus was dilated to 60 Tongan/20 mm with a TTS hydrostatic balloon. There was mild resistance at the cricopharyngeus. The remainder of the esophageal mucosa was normal. Impression: 1. Large 8 cm hiatal hernia (with paraesophageal component) and linear Gabino's erosions Plan: I will follow-up the biopsies and disaccharidase assay. I do feel that she has a symptomatic hiatal hernia and would benefit from repair based upon the size and her ongoing symptoms.
[2025-08-12 09:27] VITALS: BP 132/88; PULSE 75; RESP 20; TEMP 36.1; O2SAT 97; BMI 22.4
[2025-08-12] MEDS: LACTATED RINGERS 1000ML 1,000 ML 50 ML IV (09:36)
--- NOTE | 2025-08-12 09:52 | EXP.ANES.CKL ---
[facility] Disclaimer: The information contained in this section may have been updated after the patient was seen, as this information can be updated by other users. Medical History Sepsis Screening for colon cancer Acute effusion of both middle ears Sinusitis Otitis media Ear problem Hormone replacement therapy Migraine Surgical History History of breast biopsy History of tubal ligation History of tonsillectomy Family History Other Dementia Heart disease Social History (Updated 08/12/25 @ 09:28 by Hui Barron RN) Smoking Status: Former smoker alcohol intake: never substance use type: denies use current occupational status: employed and retired Travel in the last 8 weeks?: None household members: spouse housing: house Have you lived/traveled outside US in past 30 days?: No Contact w/someone who lives/traveled outside US past 30 days?: No Exposure to someone with infectious disease in past 14 days?: No Do you have a fever (greater than 100.4 F or 38 C)?: No Have you tested positive for COVID-19?: No Exposed to someone with COVID-19 in past 14 days?: No Do you have a sore throat?: No Do you have a cough?: No Do you have any weakness?: No Are you experiencing any nausea/vomitting?: No Do you have any diarrhea?: No Are you experiencing any unusual bleeding?: No Do you have any muscle aches/pain?: No Do you have any abdominal pain?: No Are you experiencing loss of taste or smell?: No [facility] Anesthesia Checklist Patient Identification Patient Identification: Arm Band and Verbal (Name & ) Structural Data Admitted From: Home Planned Operative Procedure/s: EGD Consent for Planned Operative Procedure(s) Verified: Yes Verified Documents: Surgical Consent NPO Status Verified Time NPO: 00:00 Additional verifications Anesthesia Reactions: No Airway Assessment Mallampati Score:: Class II C-Spine Mobility Assessed: Yes TMJ Mobility Assessed: Yes Dentition: Good Dentition Neurological Assessment Level of Consciousness: Awake, Alert and Appropriate Hx Seizures: No Numbness or tingling in extremities: No Anesthesia Plan Anesthesia Risk discussed: Yes Anesthesia Plan: Verified ASA Class: II Anesthesia Type: MAC
[2025-08-12 10:06] VITALS: BP 113/62; PULSE 86; RESP 20; TEMP 36.3; O2SAT 94
[2025-08-12 10:16] VITALS: BP 114/58; PULSE 80; O2SAT 95
[2025-08-12 10:26] VITALS: BP 100/68; PULSE 81; O2SAT 98
[2025-08-12 10:36] VITALS: BP 123/68; PULSE 80; O2SAT 98
[2025-08-14 16:40] LABS: Interpretation Notes (.); Lactase 3.65 (>/= 14.0); Maltase 124.65 (>/= 110.0); Palatinase 9.28 (>/= 8.5); Reference Notes (.); Sucrase 24.53 (>/= 25.0)
== END 2025-08-12 10:36 | disposition home or self-care (01) ==
PROVIDERS: PCP Family Medicine; Visit Provider Internal Medicine Gastroenterology
PROC: 0DJ08ZZ Inspection of Upper Intestinal Tract, Via Natural or Artificial Opening Endoscopic (ICD-10-PCS; CPT 43239; principal; 2025-08-12 10:30)
DX: K25.9 Gastric ulcer, unspecified as acute or chronic, without hemorrhage or perforation (principal); R13.10 Dysphagia, unspecified; K44.9 Diaphragmatic hernia without obstruction or gangrene; G43.909 Migraine, unspecified, not intractable, without status migrainosus; Z98.51 Tubal ligation status; Z87.891 Personal history of nicotine dependence; Z79.899 Other long term (current) drug therapy; Z88.5 Allergy status to narcotic agent; Z88.0 Allergy status to penicillin; Z79.890 Hormone replacement therapy; Z88.1 Allergy status to other antibiotic agents
CPT/HCPCS: 43239; 43247; 82657; C1726; J2003; J2704; J7120

== ENCOUNTER 2025-08-24 16:08 | Outpatient (CLI) | payer BC, SELFPAY ==
--- OUTSIDE RECORDS SUMMARY | 2025-03-27 04:00 | XMS_ITS ---
Author Organization [facility] Address [address] [facility] [address] [place] [id number] Care Team Providers Care Hand Sewer Shoes Name Role Phone Arlyn Banda Primary Care Provider Julia Arevalo Unavailable [phone] Halley Erazo Unavailable [phone] Allergies Allergen (clinical drug ingredient) Drug/Non Drug Allergy documented on EMR Reaction Allergy Type Onset Date Status codeine Codeine Unknown Drug Allergy Active Penicillin Anaphylaxis Drug Allergy Acti ve tetracycline Tetracycline Unknown Drug Allergy A ctive Results Component Value Reference Range Notes CBC Fingerstick (in house) Reviewed date:03/27/2025 04:09:31 PM Interpretation: Performing Lab: Notes/Report: wbc 10.8 3.5 - 10 lym 21.2 15 - 50 mid 5.2 2 - 15 gran 73.6 35 - 80 rbc 4.78 3.5 - 5.5 hgb 15.6 11.5 - 16.5 hct 45.7 35 - 55 mcv 95.5 75 - 100 mch 32.6 25 - 35 mchc 34.1 31 - 38 plat 233 100 - 400 REASON FOR VISIT still not feeling well Medications Medication SIG (Take, Route, Frequency, Duration) Notes Start Date End Date Status Effexor XR 75 MG 1 cap(s) orally once a day 03/09/2021 Not-Taking Cyclobenzaprine HCl 10 MG 1 tab(s) orally 3 times a day 03/13/2022 Not-Taking Gabapentin 100 MG 2 orally qhs 05/10/2021 Not-Taking Sulindac 1 P.O. BID *Please review and pick correct strength-formulat ion from ID.me options. If intended option is not shown, discontinue and re-order from Quick Search* 11/13/2020 Not-Taking CareTouch CPAP & BIPAP Hose 1 DIRECTED *Please review and pick correct strength-formulat ion from ID.me options. If intended option is not shown, discontinue and re-order from Quick Search* Not-Taking PROBIOTICS P.O. DAILY *Please review for potential replacement for e-prescription and drug interaction check* Not-Taking Meloxicam 7.5 MG 1 tab(s) orally once a day prn Not-Taking Vitamin A & D 97875-675 UNIT as directed Orally Not-Taking Vitamin B12 1000 MCG 1 tablet Orally Once a day; Duration: 30 day(s) Not-Taking Vitamin K 100 MCG 1 tablet Orally Once a day; Duration: 30 day(s) Not-Taking Cefdinir 300 MG 1 cap(s) Orally Two times a day; Duration: 7 days 03/20/2025 Not-Taking Estradiol 0.05 MG/24HR 1 patch to skin Transdermal Two times a Week; Duration: 30 day(s) Active Progesterone 100 MG 1 capsule at bedtime Orally Once a day; Duration: 30 day(s) Active Zithromax Z-Bishnu 250 MG 2 pills first day then one daily for 4 days orally as directed; Duration: 5 days 03/09/2025 Not-Taking Metamucil Smooth Texture 58.6 % as directed orally once a day; Duration: 7 day(s) Not-Taking Magnesium 250 MG 1 tablet with a meal Orally Once a day; Duration: 30 day(s) Active levoFLOXacin 500 MG 1 tablet Orally Once a day; Duration: 7 days 03/27/2025 Active Bnxppfsr-Watexjccn-LS 2-30-10 MG/5ML 5-10 mL Orally 4 times a day, prn Active Vital Signs Weight 137.6 lbs 03/27/2025 Blood pressure systolic 114 mm Hg 03/27/20 25 Blood pressure diastolic 70 mm Hg 025 Heart Rate 98 /min 03/27/2025 Height 65 in 03/27/2025 BMI 22.9 kg/m2 03/27/2025 Encounters Encounter Location Date Provider Diagnosis [facility] [address] [place] [id number] 03/27/2025 Halley Erazo Acute URI J06.9 and BMI 22.0-22.9, adult Z68.22 Assessments Encounter Date Diagnosis (ICD Code) Assessment Notes Treatment Notes Treatment Clinical Notes Section Notes 03/27/2025 Acute URI (ICD-10 - J06.9) 03/27/2025 BMI 22.0-22.9, adult (ICD-10 - Z68.22) Plan Of Treatment Medication Medication Name Sig Start Date Stop Date Notes levoFLOXacin 500 MG 1 tablet Orally Once a day; Duration: 7 days 03/27/2025 Xbmznxyo-Bcjfafbxz-BI 2-30-1 0 MG/5ML 5-10 mL Orally 4 times a day, prn Next Appt Details Follow Up: prn, Reason: Provider Name:Nader roberts, 08/24/2025 03:30:00 PM, [address] [facility] [address] [facility], [address] , [place], [place], [id number], Progress Notes * Ramos BARRONOB:1960 (65 yo F)Acc No.[id number]:03/27/2025 Progress Notes Patient: Ekaterina LOW Provider: FILOMENA Hewitt :1960 A ge:64 Y S ex:Female Date:03/27/2025 Address:[address] [place] [address], [place], [place] Pcp:Arlyn Banda Subjective: * Chief Complaints: * 1 . Still not feeling well. * HPI: H PI: 64 year old female presents with c/o Patient is here today for?Pt is here today with c/o still not feeling well. E NT/respiratory: c/o cough. c/o nasal congestion P t sts she mainly has stuffiness in her nose and sts that ears still feel full. Pt sts she does feel fine in the mornings, but sts by the afternoon she feels bad again. c/o ear pain. Denies : sore throat. D enies : headache. * ROS: D ERMATOLOGY: no R jaime. n o H chely. G ASTROENTEROLOGY: no N ausea. n o V omiting. n o D iarrhea.? U ROLOGY: no D ifficulty urinating. n o B lood in urine. * Medical History: K idney stones, Depression, Diverticulitis, Lumbar Disc Disease, MRI 2011, Lumbar facet arthropathy, Moderna Covid vaccine x2 Dec 2020. * Surgical History: t onsillectomy , [...] at bedtime Orally Once a day , Taking Aygapcad-Vxatitznt-BJ 2-30-10 MG/5ML Syrup 5-10 mL Orally 4 times a day, prn , Not-Taking Cefdinir 300 MG Capsule 1 cap(s) Orally Two times a day , Not-Taking Metamucil Smooth Texture 58.6 % Powder as directed orally once a day , Not- Taking Zithromax Z-Bishnu 250 MG Tablet 2 pills first day then one daily for 4 days orally as directed , Not-Taking Vitamin K 100 MCG Tablet 1 tablet Orally Once a day , Not-Taking Vitamin A & D 79905-100 UNIT Tablet as directed Orally , Not-Taking [...] *Please review and pick correct strength-formulation from Solaris Solar [employer] options. If intended option is not shown, discontinue and re-order from Quick Search*, Not-Taking CareTouch CPAP & BIPAP Hose MACHINE AND SUPPLIES 1 DIRECTED , Notes to Pharmacist: *Please review and pick correct strength-formulation from [employer] options. If intended option is not shown, discontinue and re-order from Quick Search*, Medication List reviewed and reconciled with the patient * Allergies: C odeine, Penicillin: Anaphylaxis, Tetracycline. Objective: * Vitals: W t: 137.6, Temp: 97.5, BP: 114/70, HR: 98, O2 Sat: 98% on RA, Nurse: carito, Ht: 65, BMI:22.9. * Examination: E NT/Respiratory: [...] to auscultation bilaterally. Assessment: * Assessment: 1. A cute URI - J06.9 (Primary) 2 . B [place] 22.0-22.9, adult - Z68.22 ? Plan: * Treatment: Value Reference Range w bc 10.8 3.5 - 10 * l ym 21.2 15 - 50 * m id 5.2 2 - 15 * g ran 73.6 35 - 80 * r bc 4.78 3.5 - 5.5 * h gb 15.6 11.5 - 16.5 * h ct 45.7 35 - 55 * m cv 95.5 75 - 100 * m ch 32.6 25 - 35 * m chc 34.1 31 - 38 * p lat 233 100 - 400 * Lilia Jones 03/27/2025 09:2 0:06 AM EDT > Provider reviewed results while patient in office.Halley Erazo 03/27/2025 04:09:29 PM EDT > * Procedure Codes: 3 6416 CAPILLARY BLOOD DRAW, 75499 CBC WITH AUTO DIFF, 1036F TOBACCO NON-USER, 3074F SYST BP LT 130 MM HG, 3078F DIAST BP < 80 MM HG * Follow Up: p rn * Images: Billing Information: * Visit Code: 35698 Office Visit, Est Pt., Level 3. * Procedure Codes: 95528 CAPILLARY BLOOD DRAW. 50167 CBC WITH AUTO DIFF. 1036F TOBACCO NON-USER. 3074F SYST BP LT 130 MM HG. 3078F DIAST BP < 80 MM HG. * Electronic signature of FILOMENA Coles on 08/24/2025 at 04:11 PM EST Sign off status: Pending * Provider: FILOMENA Hewitt Date: 0 03/27/2025 Generated for Renetta aviles/Teresa/Amrit on: 1 10/25/2024 04:11 PM EST History and Physical Notes * HPI (History of Present Illness) Category Sub-Category Detail Notes Category Not es ENT/respiratory sore throat ear pain cough headache nasal congestion Pt sts she mainly hunt s stuffiness in her nose and sts that ears still feel full. Pt sts she does feel fine in the mornings, but sts by the afternoon she feels bad again HPI Patient is here today for Pt is here toda y with c/o still not feeling well Examination Category Sub-Category Detail Notes Category Not [...]
--- OUTSIDE RECORDS SUMMARY | 2025-04-09 08:45 | XMS_ITS ---
Author Organization [facility] Address [facility] [address] [facility] [address] [place] [phone] Care Team Providers Care Colorist Formulator Name Role Phone Arlyn Banda Primary Care Provider [phone] Julia Arevalo [phone] Allergies Allergen (clinical drug ingredient) Drug/Non Drug [...] Encounter Location Date Provider Diagnosis [facility] [address] [place] [id number] 04/09/2025 Arlyn Banda Acute sinusitis, recurrence not [...] Appt Details Follow Up: 2 Weeks, Reason: Provider Name:Nader roberts, 08/24/2025 03:30:00 PM, [address] [facility] [address] [facility], [address] , [place], [place], [phone], Progress Notes * Ramos BARRONOB:1960 (65 yo F)Acc No.[id number]:04/09/2025 Progress Notes Patient: Ekaterina LOW Provider: Arlyn Banda M.D. :1960 A ge:64 Y S ex:Female Date:04/09/2025 Address:[address] [place] [id number] Subjective: * Chief Complaints: * 1 . [...] bedtime Orally Once a day , Discontinued Cjlptvna-Ixuruvwms-JQ 2-30-10 MG/5ML Syrup 5-10 mL Orally 4 [...] day , Discontinued Vitamin A & D 25402-968 UNIT Tablet as directed Orally , Discontinued [...] - J01.90 (Primary) ? 2 . B [place] 22.0-22.9, adult - Z68.22 Plan: * Treatment: * Procedure Codes: 1 036F TOBACCO NON-USER, 3074F SYST BP LT 130 MM HG, 3078F DIAST BP < 80 MM HG * Follow Up: 2 Weeks * Images: Billing Information: * Visit Code: 66263 Office Visit, Est Pt., Level 3. * Procedure Codes: 1036F TOBACCO NON-USER. 3074F SYST BP LT 130 MM HG. 3078F DIAST BP < 80 MM HG. * Electronic signature of Arlyn Banda MD on 08/24/2025 at 04:11 PM EST Sign off status: Pending * Provider: Arlyn Banda M.D. Date: 0 04/09/2025 Generated for Lexiii traci/Teresa/eTransmitting on: 10/25/2024 04:11 PM EST History and Physical [...]
--- OUTSIDE RECORDS SUMMARY | 2025-04-23 04:30 | XMS_ITS ---
Author Organization [facility] Address [address] [facility] [address] [place] [id number] Care Team Providers Care Laundry Tub Maker Name Role Phone Arlyn Banda Primary Care Provider Julia Arevalo Unavailable [phone] Halley Erazo Unavailable [phone] Allergies Allergen (clinical drug ingredient) Drug/Non Drug Allergy documented on EMR Reaction Allergy Type Onset Date Status codeine Codeine Unknown Drug Allergy Active Penicillin Anaphylaxis Drug Allergy Acti ve tetracycline Tetracycline Unknown Drug Allergy A ctive Results Component Value Reference Range Notes CBC Venipuncture (in house) Reviewed date:04/23/2025 01:17:48 PM Interpretation: Performing Lab: Notes/Report: wbc 9.6 3.5 - 10 lymph 22.8% 15 - 50 mid 5.5% 2 - 15 gran 71.7% 35 - 80 rbc 4.85 3.5 - 5.5 hgb 15.4 11.5 - 16.5 hct 44.8 35 - 55 mcv 92.2 75 - 100 mch 31.7 25 - 35 mchc 34.4 31 - 38 platlet 320 100 - 400 P-Vitamin B12 Reviewed date:04/29/2025 01:21:29 PM Interpretation: Performing Lab: Notes/Report: CLIA: [id number] Dell Wilder MD, [place] [facility] , [address], [place] [address] Test performed by [employer] Vitamin B12 484 272-5860 pg/mL P-Comprehensive Metabolic Pa michael (CMP) Reviewed date:04/29/2025 01:21:29 PM Interpretation: Performing Lab: Notes/Report: Test performed by [employer] [address] [place] [address] , [address], [place] [address] Dell Wilder MD, [place] CLIA: [id number] Sodium 141 135-145 mmol/L Potassium 4.8 3.5-5.3 mmol/L Chloride 104 97-108 mmol/L CO2 23 20-32 mmol/L Glucose 90 65-99 mg/dL BUN 20 8-23 mg/dL Creatinine 0.71 0.50-1.00 mg/dL Calcium 9.9 8.6-10.4 mg/dL eGFR by Creatinine 95 >59 mL/min/1.73m2 Protein 6.6 6.0-8.3 g/dL Albumin 3.8 3.5-5.3 g/dL Alkaline Phosphatase 103 35-121 IU/L ALT (SGPT) 56 <5-47 IU/L AST (SGOT) 45 <5-40 IU/L Bilirubin, Total <0.2 <0.2-1.2 mg/dL A/G Ratio 1.4 1.1-2.5 P-Jensen Ochoa Virus (EBV) V CA Antibodies IgG IgM Reviewed date:04/29/2025 01:21:29 PM Interpretation: Performing Lab: Notes/Report: Test performed by [employer] [address] [place] [address] , [place] [address] Dell Wilder MD, [place] CLIA: [id number] Jensen Ochoa Virus (EBV) VCA Antibodies IgG 7.3 <0.9 AI Jensen Ochoa Virus (EBV) VCA Antibodies IgM <0.2 <0.9 AI P-T4 Free (thyroxine) Reviewed date:04/29/2025 01:21:29 PM Interpretation: Performing Lab: Notes/Report: Test performed by [employer] [address] [place] [address] , [place] [address] Dell Wilder MD, [place] CLIA: [id number] Thyroxine Free (free T4) 5.79 0.86-1.76 ng/dL P-TSH reflex to FT4 Reviewed date:04/29/2025 01:21:29 PM Interpretation: Performing Lab: Notes/Report: Test performed by [employer] [address] [place] [address] , [address], [place] [address] Dell Wilder MD, [place] CLIA: [id number] TSH reflex to FT4 <0.005 0.43-5.25 mU/L P-Vitamin D 25-Hydroxy Reviewed date:04/29/2025 01:21:29 PM Interpretation: Performing Lab: Notes/Report: Test performed by [employer] [address] [place] [address] , [address], [place] [address] Dell Wilder MD, [place] CLIA: [id number] Vitamin D 25-Hydroxy 34.1 30.0-100.0 ng/mL Interpretation of Vitamin D 25 [place]: < 20 ng/mL - Deficiency 20 - 29 ng/mL - Insufficiency 30 - 100 ng/mL - Sufficiency > 100 ng/mL - Super-therapeutic- toxicity may occur above this level. Clinical correlation required. REASON FOR VISIT 2 weeks Medications Medication SIG (Take, Route, Frequency, Duration) Notes Start Date End Date Status Azithromycin 500 MG 1 tablet Orally Once a day; Duration: 3 days refill, then weekly dose 04/09/2025 Active Fexofenadine HCl 180 MG 1 Orally Once a day; Duration: 30 days 04/09/2025 Active hydrOXYzine HCl 25 MG 1 tab Orally every night, prn 04/23/2025 Active Azelastine HCl 137 MCG/SPRAY 2 puffs (1 spray in each nostril) Nasally Twice a day; Duration: 30 days 04/23/2025 Active Problems Problem Type SNOMED Code ICD Code Onset Dates Problem Status W/U Status Risk Notes Problem Insomnia disorder related to another mental disorder (70190371) Psychophysiological insomnia (F51.04) Active confirmed Vital Signs Weight 134.2 lbs 04/23/2025 Blood pressure systolic 118 mm Hg 04/23/20 25 Blood pressure diastolic 66 mm Hg 025 Heart Rate 101 /min 04/23/2025 Height 65 in 04/23/2025 BMI 22.33 kg/m2 04/23/2025 Encounters Encounter Location Date Provider Diagnosis [facility] [address] [facility] [address] [place], [place] [id number] 04/23/2025 Halley Erazo Acute sinusitis, rec urrence not specified, unspecified location J01.90 ; Other fatigue R53.83 ; Psychophysiological insomnia F51.04 ; Seasonal allergies J30.2 and BMI 22.0-22.9, adult Z68.22 Assessments Encounter Date Diagnosis (ICD Code) Assessment Notes Treatment Notes Treatment Clinical Notes Section Notes 04/23/2025 Acute sinusitis, recurrence not specified, unspecified location (ICD-10 - J01.90) Resolved 04/23/2025 Other fatigue (ICD-1 0 - R53.83) 04/23/2025 Psychophysiological insomnia (ICD-10 - F51.04) 04/23/2025 Seasonal allergies (ICD-10 - J30.2) 04/23/2025 BMI 22.0-22.9, adult (ICD-10 - Z68.22) Plan Of Treatment Medication Medication Name Sig Start Date Stop Date Notes hydrOXYzine HCl 25 MG 1 tab Orally every night, prn 2024 Azelastine HCl 137 MCG/SPRAY 2 puffs (1 spray in each nostril) Nasally Twice a day; Duration: 30 days 04/23/2025 Treatment Notes Assessment Notes Acute sinusitis, recurrence not specifie d, unspecified location Resolved Next Appt Details Follow Up: via phone to repo rt test results, Reason: Provider Name:Nader Riojas , 08/24/2025 03:30:00 PM, [address] [facility] 36 [facility], [address], [place], [place], [id number], Progress Notes * Ramos BARRONOB:1960 (65 yo F)Acc No.[id number]:04/23/2025 Progress Notes Patient: Ekaterina LOW Provider: FILOMENA Hewitt :1960 A ge:64 Y S ex:Female Date:04/23/2025 Address:[address] [place] [address], [id number] Pcp:Arlyn Banda Subjective: * Chief Complaints: * 1 . 2 weeks. * HPI: E NT/respiratory: Pt here for checkup on congestion. Pt was started on Azithromycin and Fexofenadine at last visit. Pt states that congestion has improved a little bit but she does still have some. Pt is also unable to sleep at night and has been very fatigued. 64 year old female presents with c/o cough s mall amount of white sputum. c/o ear pain r ight side. c/o headache. c/o body aches. Denies : sore throat. D enies : nasal congestion. D enies : Fever. D enies : Chest Pain. D enies : Short of Breath. D enies : chest congestion.?Denies : dizziness. * ROS: D ERMATOLOGY: no R jaime. [...] ouside US: no. * Medications: T aking Azithromycin 500 MG Tablet 1 tablet Orally Once a day refill, then weekly dose, Taking Fexofenadine HCl 180 MG Tablet 1 Orally Once a day , Medication List reviewed and reconciled with the patient * Allergies: C odeine, Penicillin: Anaphylaxis, Tetracycline. Objective: * Vitals: W t: 134.2, Temp: 97.6, BP: 118/66, HR: 101, O2 Sat: 96% on ra, Nurse: beth, Ht: 65, BMI:22.33. * Examination: E NT/Respiratory: General Appearance: N AD. E yes: P ERRLA, sclera clear. E ars: a uditory canals normal bilaterally, TM's WNL. N ose : p hiram, edematous turbinates, clear rhinorrhea. S inuses : n on tender bilaterally. O ral cavity : n o erythema or exudate seen on pharynx. N manish : n o cervical lymphadenopathy. H eart :?RRR, normal S1 S2, no murmurs. L ungs: c lear to auscultation bilaterally. A bdomen :?soft, nontender, BS present. E xtremities : n o edema. S kin : c lear without rashes. Assessment: * Assessment: 1. A cute sinusitis, recurrence not specified, unspecified location - J01.90 (Primary) ? 2 . O ther fatigue - R53.83 3 . P sychophysiological insomnia - F51.04 4 . S easonal allergies - J30.2 5 . B [place] 22.0-22.9, adult - Z68.22 Plan: * Treatment: Value Reference Range w bc 9.6 3.5 - 10 * l ymph 22.8% 15 - 50 * m id 5.5% 2 - 15 * g ran 71.7% 35 - 80 * r bc 4.85 3.5 - 5.5 * h gb 15.4 11.5 - 16.5 * h ct 44.8 35 - 55 * m cv 92.2 75 - 100 * m ch 31.7 25 - 35 * m chc 34.4 31 - 38 * p latlet 320 100 - 400 * Rosette Mera 04/23/2025 1 0:16:24 AM EDT > Provider reviewed results while patient in office. Notes: Resolved??2.?Other fatigue?LAB: P-Vitamin B12 (Collection Date & Time - 04/23/2025 09:05 AM)* Value Reference Range V itamin B12 887 141-0946 - pg/mL * Halley Erazo Victorino 04/23/2025 0 9:53:31 AM EDT >room 10, purple Inpatient labs reviewed at [facility] ?LAB: P-Comprehensive Metabolic Panel (CMP) (Collection Date & Time - 04/23/2025 09:05 AM)* Value Reference Range A /G Ratio 1.4 1.1-2.5 - * A lbumin 3.8 3.5-5.3 - g/dL * A lkaline Phosphatase 103 35-121 - IU/L * A LT (SGPT) 56 H <5-47 - IU/L * A ST (SGOT) 45 H <5-40 - IU/L * B ilirubin, Total <0.2 <0.2-1.2 - mg/dL * B UN 20 8-23 - mg/dL * C alcium 9.9 8.6-10.4 - mg/dL * C hloride 104 97-108 - mmol/L * C O2 23 20-32 - mmol/L * C reatinine 0.71 0.50-1.00 - mg/dL * G lucose 90 65-99 - mg/dL * P otassium 4.8 3.5-5.3 - mmol/L * S odium 141 135-145 - mmol/L * P rotein 6.6 6.0-8.3 - g/dL * e GFR by Creatinine 95 >59 - mL/min/1.73m2 * KaceyAlistairden Gleason 04/23/2025 0 9:53:31 AM EDT >room 10, purple Inpatient labs reviewed at [facility] ?LAB: P-Jensen Ochoa Virus (EBV) VCA Antibodies IgG IgM (Collection Date & Time - 04/23/2025 09:05 AM)* Value Reference Range E pstein Ochoa Virus (EBV) VCA Antibodies IgG 7.3 H <0.9 - AI * E pstein Ochoa Virus (EBV) VCA Antibodies IgM <0.2 <0.9 - AI * Halley Erazo Victorino 04/23/2025 0 9:53:31 AM EDT >room 10, purple Inpatient labs reviewed at [facility] ?LAB: P-TSH reflex to FT4 (Collection Date & Time - 04/23/2025 09:05 AM)* Value Reference Range T SH reflex to FT4 <0.005 L 0.43-5.25 - mU/L * Kacey Halley S 04/23/2025 0 9:53:31 AM EDT >room 10, purple Inpatient labs reviewed at [facility] ?LAB: P-Vitamin D 25-Hydroxy (Collection Date & Time - 04/23/2025 09:05 AM) * Value Reference Range V itamin D 25-Hydroxy 34.1 30.0-100.0 - ng/mL * Halley Erazo 04/23/2025 0 9:53:31 AM EDT >room 10, purple Inpatient labs reviewed at [facility] 3.?Psychophysiological insomnia? Start hydrOXYzine HCl Tablet, 25 MG, 1 tab, Orally, every night, prn, 30, Refills 1.??4.?Seasonal allergies? Start Azelastine HCl Solution, 137 MCG/SPRAY, 2 puffs (1 spray in each nostril), Nasally, Twice a day, 30 days, 1, Refills 5.?? * Labs: * L ab: P-T4 Free (thyroxine) (Collection Date & Time - 04/23/2025 09:05 AM) Value Reference Range T hyroxine Free (free T4) 5.79 H 0.86-1.76 - ng/d L * [facility], IT support 04/28/2025 02:25:07 : This order was created by the Interface. Inpatient labs reviewed at [facility] * Procedure Codes: 8 5025 CBC WITH AUTO DIFF, 3074F SYST BP LT 130 MM HG, 3078F DIAST BP < 80 MM HG * Follow Up: v ia phone to report test results * Images: Billing Information: * Visit Code: 42284 Office Visit, Est Pt., Level 4. * Procedure Codes: 67432 CBC WITH AUTO DIFF. 3074F SYST BP LT 130 MM HG. 3078F DIAST BP < 80 MM HG. * Electronic signature of FILOMENA Coles on 08/24/2025 at 04:11 PM EST Sign off status: Pending * Provider: FILOMENA Hewitt Date: 0 04/23/2025 Generated for Lexiii ng/Fashanong/eTransmitting on: 1 10/25/2024 04:11 PM EST History and Physical Notes * HPI (History of Present Illness) Category Sub-Category Detail Notes Category Not es ENT/respiratory sore throat ear pain right side Short of Breath Chest Pain cough small amount of whit e sputum Fever headache chest congestion nasal congestion dizziness body aches Examination Category Sub-Category Detail Notes Category Not es ENT/Respiratory Oral cavity : no erythema or exudate s een on pharynx Sinuses : non tender bilateral ly Ears: auditory canals norm al bilaterally, TM's WNL Neck : no cervical lymphade nopathy Heart : RRR, normal S1 S2, n o murmurs Lungs: clear to auscultatio n bilaterally Abdomen : soft, nontender, BS present Extremities : no edema General Appearance: NAD Nose : pale, edematous turb inates, clear rhinorrhea Skin : clear without rashes Eyes: PERRLA, sclera clear
--- OUTSIDE RECORDS SUMMARY | 2025-05-06 05:15 | XMS_ITS ---
Author Organization [facility] Address [address] [place] [id number] Care Team Providers Care Implementation Technician Name Role Phone Arlyn Banda Primary Care Provider Julia Arevalo Unavailable [phone] Halley Erazo Unavailable [phone] Allergies Allergen (clinical drug ingredient) Drug/Non Drug Allergy documented on EMR Reaction Allergy Type Onset Date Status codeine Codeine Unknown Drug Allergy Active Penicillin Anaphylaxis Drug Allergy Acti ve tetracycline Tetracycline Unknown Drug Allergy A ctive Results Component Value Reference Range Notes CBC Venipuncture (in house) Reviewed date:05/06/2025 11:13:33 AM Interpretation: Performing Lab: Notes/Report: wbc 10.1 3.5 - 10 lymph 24.0% 15 - 50 mid 6.2% 2 - 15 gran 69.8% 35 - 80 rbc 4.87 3.5 - 5.5 hgb 15.0 11.5 - 16.5 hct 44.7 35 - 55 mcv 91.8 75 - 100 mch 30.8 25 - 35 mchc 33.5 31 - 38 platlet 570 100 - 400 P-Comprehensive Metabolic Pa michael (CMP) Reviewed date:05/07/2025 05:08:51 PM Interpretation:Normal Performing Lab: Notes/Report: CLIA: [id number] Dell Wilder MD, Flatwork Finisher [facility] [place][note 2][address] [facility] , [address], [place] [address] Test performed by [employer], [facility] Sodium 140 135-145 mmol/L Potassium 5.2 3.5-5.3 mmol/L Chloride 103 97-108 mmol/L CO2 24 20-32 mmol/L Glucose 104 65-99 mg/dL BUN 15 8-23 mg/dL Creatinine 0.48 0.50-1.00 mg/dL Calcium 10.1 8.6-10.4 mg/dL eGFR by Creatinine 106 >59 mL/min/1.73m2 Protein 6.3 6.0-8.3 g/dL Albumin 3.6 3.5-5.3 g/dL Alkaline Phosphatase 77 35-121 IU/L ALT (SGPT) 25 <5-47 IU/L AST (SGOT) 31 <5-40 IU/L Bilirubin, Total 0.3 <0.2-1.2 mg/dL A/G Ratio 1.3 1.1-2.5 P-T4 Free (thyroxine) Reviewed date:05/07/2025 05:08:51 PM Interpretation:6.69 Performing Lab: Notes/Report: Test performed by [employer] [address] [place] [address] , [address], [place] [address] Dell Wilder MD, Flatwork Finisher CLIA: [id number] Thyroxine Free (free T4) 6.69 0.86-1.76 ng/dL P-TSH reflex to FT4 Reviewed date:05/07/2025 05:08:51 PM Interpretation:<0.005 Performing Lab: Notes/Report: Test performed by [employer] [address] [place] [address] , [address], [place] [address] Dell Wilder MD, Flatwork Finisher CLIA: [id number] TSH reflex to FT4 <0.005 0.43-5.25 mU/L Holter Monitor- 48 hour Reviewed date:05/22/2025 10:12:42 AM Interpretation: Performing Lab: Notes/Report: Reason For Referral Diagnosis 1 Hiatal hernia (K44.9 ) Referral Organization [facility] Referring Provider First Name Halley Referring Provider Last Name Kacey Referring Provider Speciality Physician Rear Load Truck Driver Referred Provider Specialty General Surg april General Notes Pt needs an appt [facility] h Addis Mayen Brynn 05/06/2025 01:38:51 PM > 05/12/2025 at 09:15am; patient informed Referral Priority Routine REASON FOR VISIT [facility] discharge f/u Medications Medication SIG (Take, Route, Fr equency, Duration) Notes Start Date End Date Status levoFLOXacin 500 MG 1 tablet Orally Once a day; Duration: 5 days 05/06/2025 Active metroNIDAZOLE 500 MG 1 tablet Orally Thr ee times a day; Duration: 5 days 05/06/2025 Active Vital Signs Weight 126.4 lbs 05/06/2025 Blood pressure systolic 120 mm Hg 05/06/20 25 Blood pressure diastolic 60 mm Hg 025 Heart Rate 125 /min 05/06/2025 Height 65 in 05/06/2025 BMI 21.03 kg/m2 05/06/2025 Encounters Encounter Location Date Provider Diagnosis [facility] [address] [place], [place] [id number] 05/06/2025 Halley Crowdy Diverticulitis K57.9 2 ; Palpitations R00.2 and Hiatal hernia K44.9 Assessments Encounter Date Diagnosis (ICD Code) Assessment Notes Treatment Notes Treatment Clinical Notes Section Notes 05/06/2025 Diverticulitis (ICD-10 - K57.92) WBC is still elevated. Will start 5 more days of abx and f/u next week. 05/06/2025 Palpitations (ICD-10 - R00.2) HR is elevated today. Will check labs and a holter. 05/06/2025 Hiatal hernia (ICD-10 - K44.9) 05/06/2025 Other Discharge summary with available lab/diagnostic imaging results obtained and reviewed. Discharge medication list reconciled. Appropriate counseling provided. Moderate Complexity Plan Of Treatment Medication Medication Name Sig Start Date Stop Date Notes levoFLOXacin 500 MG 1 tablet Orally Once a day; Duration: 5 days 05/06/2025 metroNIDAZOLE 500 MG [address] Thr ee times a day; Duration: 5 days 05/06/2025 Treatment Notes Assessment Notes Diverticulitis WBC is still elevate d. Will start 5 more days of abx and f/u next week. Palpitations HR is elevated today . Will check labs and a holter. Other Discharge summary wi th available lab/diagnostic imaging results obtained and reviewed. Discharge medication list reconciled. Appropriate counseling provided. Moderate Complexity Referrals Referral Date Details 05/06/2025 05/06/2025 Next Appt Details Follow Up: 1 Week, Reason: Provider Name:Nader roberts, 08/24/2025 03:30:00 PM, [address], [address], [place], [id number], Progress Notes * Ramos BARRONOB:1960 (65 yo F)Acc No.[id number]:05/06/2025 Patient: Ekaterina LOW Provider: FILOMENA Hewitt :1960 A ge:65 Y S ex:Female Date:05/06/2025 Address:[address] [place] [address] [address], [place], [id number] Pcp:Arlyn Banda Subjective: * Chief Complaints: * 1 . [facility] discharge f/u. * HPI: H PI: Patient is here today for A Transition of Care Visit. Discharge from the following Facility: admitted to [facility] 04/26/2025 for Sepsis and Diverticulitis, Discharge date: 04/29/2025,Date of phone contact following discharge: 04/30/2025. Pt states she does not feel good, and cannot sleep. Pt states she is weak. Has finished flagyl and levaquin. Still having some abdominal pain but not as bad as it was initially.. * ROS: D ERMATOLOGY: no R jaime. [...] ouside US: no. * Medications: D iscontinued Azithromycin 500 MG Tablet 1 tablet Orally Once a day refill, then weekly dose, Discontinued Fexofenadine HCl 180 MG Tablet 1 Orally Once a day , Discontinued Azelastine HCl 137 MCG/SPRAY Solution 2 puffs (1 spray in each nostril) Nasally Twice a day , Discontinued hydrOXYzine HCl 25 MG Tablet 1 tab Orally every night, prn , Medication List reviewed and reconciled with the patient * Allergies: C odeine, Penicillin: Anaphylaxis, Tetracycline. Objective: * Vitals: W t: 126.4, Temp: 98.6, BP: 120/60, HR: 125, O2 Sat: 96% on RA, Nurse: pe, Ht: 65, BMI:21.03. * Examination: G eneral Examination: General Appearance: N AD. H EENT: u nremarkable.?Oral cavity: n o lesions, mucosa moist and WNL, no erythema. N manish: s upple, no lymphadenopathy. C hest: n ormal shape and expansion. H eart: R SR. L ungs: c lear to auscultation. A bdomen: b owel sounds present, soft, nontender. N eurologic Exam:?Intact, gait normal. S kin: n ormal, no rash. P eripheral pulses: n ormal (2+) bilaterally. E xtremities: n o leg edema. Assessment: * Assessment: 1. D iverticulitis - K57.92 (Primary) 2 . P alpitations - R00.2 ?3. H iatal hernia - K44.9 Plan: * Treatment: Value Reference Range A /G Ratio 1.3 1.1-2.5 - * A lbumin 3.6 3.5-5.3 - g/dL * A lkaline Phosphatase 77 35-121 - IU/L * A LT (SGPT) 25 <5-47 - IU/L * A ST (SGOT) 31 <5-40 - IU/L * B ilirubin, Total 0.3 <0.2-1.2 - mg/dL * B UN 15 8-23 - mg/dL * C alcium 10.1 8.6-10.4 - mg/dL * C hloride 103 97-108 - mmol/L * C O2 24 20-32 - mmol/L * C reatinine 0.48 L 0.50-1.00 - mg/dL * G lucose 104 H 65-99 - mg/dL * P otassium 5.2 3.5-5.3 - mmol/L * S odium 140 135-145 - mmol/L * P rotein 6.3 6.0-8.3 - g/dL * e GFR by Creatinine 106 >59 - mL/min/1.73m2 * Halley Erazo 05/06/2025 10 :42:55 AM EDT >room 5, arcadio OliveiraeAnita 05/07/2025 05:08:44 PM EDT > See phone encounter ?LAB: CBC Venipuncture (in house) (Collection Date & Time - 05/06/2025)* Value Reference Range w bc 10.1 3.5 - 10 * l ymph 24.0% 15 - 50 * m id 6.2% 2 - 15 * g ran 69.8% 35 - 80 * r bc 4.87 3.5 - 5.5 * h gb 15.0 11.5 - 16.5 * h ct 44.7 35 - 55 * m cv 91.8 75 - 100 * m ch 30.8 25 - 35 * m chc 33.5 31 - 38 * p latlet 570 100 - 400 * Rosette Mera 05/06/2025 10 :57:04 AM EDT > Provider reviewed results while patient in office.Halley Erazo 05/06/2025 11:13:30 AM EDT > Notes: WBC is still elevated. Will start 5 more days of abx and f/u next week.?? 2.?Palpitations?LAB: P-TSH reflex to FT4 (Collection Date & Time - 05/06/2025 09:45 AM)? <0.005* Value Reference Range T SH reflex to FT4 <0.005 L 0.43-5.25 - mU/L * Halley Erazo 05/06/2025 10 :42:55 AM EDT >room 5, purple Anita Jaimes 05/07/2025 05:08:44 PM EDT > See phone encounter ?Imaging: Holter Monitor- 48 hour (Performed Date - 05/06/2025)* Anita Jaimes 05/22/2025 10: 09:49 AM EDT > see phone encounter. Notes: HR is elevated today. Will check labs and a holter.??3.?Hiatal hernia? Referral To:General Surgery ?Reason: 4.?Others? Notes: Discharge summary with available lab/diagnostic imaging results obtained and reviewed. Discharge medication list reconciled. Appropriate counseling provided. Moderate Complexity?? * Labs: * L ab: P-T4 Free (thyroxine) (Collection Date & Time - 05/06/2025 09:45 AM) 6 .69 Value Reference Range T hyroxine Free (free T4) 6.69 H 0.86-1.76 - ng/d L * [facility], IT support 05/07/2025 08:35:05 : This order was created by the Interface. Anita Jaimes 05/07/2025 05:08:44 PM EDT > See phone encounter * Procedure Codes: 9 9495 TRANS CARE MGMT 14 DAY DISCH, 1111F DSCHR MED/CURENT MED MERGE, 16573 CBC WITH AUTO DIFF, 88306 VENIPUNCT, ROUTINE* * Follow Up: 1 Week * Images: Billing Information: * Visit Code: 76009 Office Visit, Est Pt., Level 4. * Procedure Codes: 41377 TRANS CARE MGMT 14 DAY DISCH. 1111F DSCHR MED/CURENT MED MERGE. 77356 CBC WITH AUTO DIFF. 83053 VENIPUNCT, ROUTINE*. * Electronic signature of FILOMENA Coles on 08/24/2025 at 04:11 PM EST Sign off status: Pending * Provider: FILOMENA Hewitt Date: 0 05/06/2025 Generated for Renetta aviles/Teresa/eTfangsmitting on: 1 10/25/2024 04:11 PM EST History and Physical Notes * HPI (History of Present Illness) Category Sub-Category Detail Notes Category Not es HPI Patient is here today for A [facility] sition of Care Visit. Discharge from the following Facility: admitted to [facility] 04/26/2025 for Sepsis and Diverticulitis, Discharge date: 04/29/2025,Date of phone contact following discharge: 04/30/2025. Pt states she does not feel good, and cannot sleep. Pt states she is weak. Has finished flagyl and levaquin. Still having some abdominal pain but not as bad as it was initially. Examination Category Sub-Category Detail Notes Category Not es General Examination HEENT: unremarkable Heart: RSR Lungs: clear to auscultatio n Abdomen: bowel sounds present , soft, nontender Extremities: no leg edema General Appearance: NAD Skin: normal, no rash Neurologic Exam: Intact, gait normal Neck: supple, no lymphaden opathy Oral cavity: no lesions, mucosa m oist and WNL, no erythema Peripheral pulses: normal (2+) bilatera lly Chest: normal shape and exp ansion Consultation Request Notes Referral Date Referring Provider Referred Provider Not es 05/06/2025 Halley Erazo ,
--- OUTSIDE RECORDS SUMMARY | 2025-05-08 08:00 | XMS_ITS ---
Author Organization [facility] Address [address] [place] [id number] Care Team Providers Care Director Drug Name Role Phone Arlyn Banda Primary Care Provider [phone] Julia Arevalo Unavailable [phone] Halley Erazo Unavailable [phone] Results Component Value Reference Range Notes CBC Fingerstick (in house) Reviewed date:05/08/2025 05:38:31 PM Interpretation: Performing Lab: Notes/Report: wbc 9.7 3.5 - 10 lym 19.4% 15 - 50 mid 5.7% 2 - 15 gran 74.9% 35 - 80 rbc 4.93 3.5 - 5.5 hgb 15.5 11.5 - 16.5 hct 45.3 35 - 55 mcv 91.9 75 - 100 mch 31.5 25 - 35 mchc 34.2 31 - 38 plat 580 100 - 400 P-Thyroid Antibody Panel (TA BS) Reviewed date:05/15/2025 12:13:22 AM Interpretation:Thyroglobulin Antibody >4000 H Performing Lab: Notes/Report: CLIA: [id number] Dell Wilder MD, Wound/Ostomy Nurse [address] [place] [address] , [address], [place] [address] Test performed by [employer], [facility] Thyroid Peroxidase Antibody <9 <9-34 IU/mL An elevated Thyroid Peroxidase Antibody should not be used alone to make the diagnosis of autoimmune thyroid disease. A result of <34 IU/mL does not definitively rule out the possibility of autoimmune thyroid disease. Thyroglobulin Antibody >4000 <10-115.0 IU/mL The test is performed by the Marsha ECLIA methodology. Values obtained with different assay methods or kits cannot be directly compared. REASON FOR VISIT blood work Vital Signs Height 65 in 05/08/2025 Encounters Encounter Location Date Provider Diagnosis [facility] [address] [facility] [address] [place] [id number] 05/08/2025 Halley Erazo Palpitations R00.2 Assessments Encounter Date Diagnosis (ICD Code) Assessment Notes Treatment Notes Treatment Clinical Notes Section Notes 05/08/2025 Palpitations (ICD-10 - R00.2) Plan Of Treatment Next Appt Details Provider Name:Nader Riojas ry, 08/24/2025 03:30:00 PM, [address], [address], [place], [id number], Progress Notes * Lynsey BARRONAnaOB:1960 (65 yo F)Acc No.[id number]:05/08/2025 Patient: Ekaterina LOW Provider: FILOMENA Hewitt :1960 A ge:65 Y S ex:Female Date:05/08/2025 Address:[address] [place] [address], [id number] Pcp:Arlyn Banda Subjective: * Chief Complaints: * 1 . Blood work. * Medical History: Objective: * Vitals: W t: Not Taken - No Medical Need, Temp: Not Taken - No Medical Need, Nurse: Not Taken - No Medical Need, Ht: 65. Assessment: * Assessment: 1. P alpitations - R00.2 Plan: * Treatment: Value Reference Range T hyroid Peroxidase Antibody <9 <9-34 - IU/mL * T hyroglobulin Antibody >4000 H <10-115.0 - IU/mL * Anita Jaimes 05/11/2025 05:3 5:36 PM EDT > see 05/13 Halley Wan 05/15/2025 12:13:11 AM EDT >discussed at OV ?LAB: CBC Fingerstick (in house) (Collection Date & Time - 05/08/2025)* Value Reference Range w bc 9.7 3.5 - 10 * l ym 19.4% 15 - 50 * m id 5.7% 2 - 15 * g ran 74.9% 35 - 80 * r bc 4.93 3.5 - 5.5 * h gb 15.5 11.5 - 16.5 * h ct 45.3 35 - 55 * m cv 91.9 75 - 100 * m ch 31.5 25 - 35 * m chc 34.2 31 - 38 * p lat 580 100 - 400 * Sara Reyna 05/08/2025 03:03:3 1 PM EDT >Halley Erazo 05/08/2025 05:38:29 PM EDT > * Procedure Codes: 8 5025 CBC WITH AUTO DIFF * Images: Billing Information: * Visit Code: * Procedure Codes: 96994 CBC WITH AUTO DIFF. * Electronic signature of FILOMENA Coles on 08/24/2025 at 04:11 PM EST Sign off status: Pending * Provider: FILOMENA Hewitt Date: 0 05/08/2025 Generated for Renetta aviles/Teresa/eTransmitting on: 1 10/25/2024 04:11 PM EST
--- OUTSIDE RECORDS SUMMARY | 2025-05-13 05:00 | XMS_ITS ---
Author Organization [facility] Address [address] [facility] [address] [facility] [address] [place] [id number] Care Team Providers Care Warehouse Operator Name Role Phone Arlyn Banda Primary Care Provider Julia Arevalo Unavailable [phone] Halley Erazo Unavailable [phone] Allergies Allergen (clinical drug ingredient) Drug/Non Drug Allergy documented on EMR Reaction Allergy Type Onset Date Status codeine Codeine Unknown Drug Allergy Active Penicillin Anaphylaxis Drug Allergy Acti ve tetracycline Tetracycline Unknown Drug Allergy A ctive REASON FOR VISIT 1 week Medications Medication SIG (Take, Route, Frequency, Duration) Notes Start Date End Date Status levoFLOXacin 500 MG 1 tablet Orally Once a day; Duration: 5 days 05/06/2025 Not-Taking methIMAzole 10 MG 1 tablet Orally Once a day; Duration: 30 days 05/13/2025 Active Metoprolol Succinate ER 25 MG 1/2 tab Orally Once a day; Duration: 30 days 05/08/2025 Active Problems Problem Type SNOMED Code ICD Code Onset Dates Problem Status W/U Status Risk Notes Problem Thyroiditis (22141439) Thyroiditis (E06.9) Active confirmed Vital Signs Weight 127 lbs 05/13/2025 Blood pressure systolic 128 mm Hg 05/13/20 25 Blood pressure diastolic 64 mm Hg 025 Heart Rate 102 /min 05/13/2025 Height 65 in 05/13/2025 BMI 21.13 kg/m2 05/13/2025 Encounters Encounter Location Date Provider Diagnosis [facility] [address] [facility] [address] [place] [id number] 05/13/2025 Halley Avilalincoln Hyperthyroidism E05. 90 ; Thyroiditis E06.9 ; Tachycardia R00.0 and BMI 21.0-21.9, adult Z68.21 Assessments Encounter Date Diagnosis (ICD Code) Assessment Notes Treatment Notes Treatment Clinical Notes Section Notes 05/13/2025 Hyperthyroidism (ICD-10 - E05.90) Patient has not heard from the endocrinology office since the referral was made. We will call today about the appt. 05/13/2025 Thyroiditis (ICD-10 - E06.9) 05/13/2025 Tachycardia (ICD-10 - R00.0) HR has been lower but unable to increase the metoprolol due to low BP at home. Will keep patient on 1/2 tab and start on methimazole for hyperthyroidism. 05/13/2025 BMI 21.0-21.9, adult (ICD-10 - Z68.21) Plan Of Treatment Medication Medication Name Sig Start Date Stop Date Notes methIMAzole 10 MG 1 tablet Orally Once a day; Duration: 30 days 05/13/2025 Treatment Notes Assessment Notes Hyperthyroidism Patient has not hear d from the endocrinology office since the referral was made. We will call today about the appt. Tachycardia HR has been lower bu t unable to increase the metoprolol due to low BP at home. Will keep patient on 1/2 tab and start on methimazole for hyperthyroidism. Next Appt Details Follow Up: with endocrinolog y, Reason: Provider Name:Nader roberts, 08/24/2025 03:30:00 PM, [facility] [address], [place], [id number], Progress Notes * Lynsey BARRONAnaOB:1960 (65 yo F)Acc No.[id number]:05/13/2025 Progress Notes Patient: Ekaterina LOW Provider: FILOMENA Hewitt :1960 A ge:65 Y S ex:Female Date:05/13/2025 Address:[address] [place] [address], [place] Pcp:Arlyn Banda Subjective: * Chief Complaints: * 1 . 1 week. * HPI: H PI: Patient is here today for 1 week f/u. Pt states here to talk about test results. Pt states she has no new concerns today. * ROS: D ERMATOLOGY: no R jaime. [...] ouside US: no. * Medications: T aking Metoprolol Succinate ER 25 MG Tablet Extended Release 24 Hour 1/2 tab Orally Once a day , Not-Taking levoFLOXacin 500 MG Tablet 1 tablet Orally Once a day , Discontinued metroNIDAZOLE 500 MG Tablet 1 tablet Orally Three times a day , Medication List reviewed and reconciled with the patient * Allergies: C odeine, Penicillin: Anaphylaxis, Tetracycline. Objective: * Vitals: W t: 127, Temp: 97.6, BP: 128/64, HR: 102, Nurse: pe, Ht: 65, BMI:21.13. * Examination: G eneral Examination: General Appearance: N AD. H EENT: u nremarkable.?Oral cavity: n o lesions, mucosa moist and WNL, no erythema. N manish: s upple, no lymphadenopathy. C hest: n ormal shape and expansion. H eart: R SR, tachycardia. L ungs: c lear to auscultation. A bdomen: b owel sounds present, soft and nontender. N eurologic Exam: I ntact, gait normal. S kin: n ormal, no rash. P eripheral pulses:?normal (2+) bilaterally. E xtremities: n o leg edema. Assessment: * Assessment: 1. H yperthyroidism - E05.90 (Primary) 2 . T hyroiditis - E06.9 ?3. T achycardia - R00.0 4 . B [place] 21.0-21.9, adult - Z68.21 ? Plan: * Treatment: 2. T achycardia Notes: HR has been lower but unable to increase the metoprolol due to low BP at home. Will keep patient on 1/2 tab and start on methimazole for hyperthyroidism. * Procedure Codes: 1 036F TOBACCO NON-USER, 3074F SYST BP LT 130 MM HG, 3078F DIAST BP < 80 MM HG, 3017F COLORECTAL CA SCREEN DOC REV * Preventive Medicine: Screening / Special Tests: C olonoscopy C olonoscopy - Dr Aponte 11/25/24. * Follow Up: w [facility] end[facility]ology * Images: Billing Information: * Visit Code: 49877 Office Visit, Est Pt., Level 4. * Procedure Codes: 1036F TOBACCO NON-USER. 3074F SYST BP LT 130 MM HG. 3078F DIAST BP < 80 MM HG. 3017F COLORECTAL CA SCREEN DOC REV. * Electronic signature of FILOMNEA Coles on 08/24/2025 at 04:11 PM EST Sign off status: Pending * Provider: FILOMENA Hewitt Date: 0 05/13/2025 Generated for Renetta aviles/Teresa/eTransmitting on: 1 10/25/2024 04:11 PM EST History and Physical Notes * HPI (History of Present Illness) Category Sub-Category Detail Notes Category Not es HPI Patient is here today for 1 week f/u. Pt states here to talk about test results. Pt states she has no new concerns today Examination Category Sub-Category Detail Notes Category Not es General Examination HEENT: unremarkable Heart: RSR, tachycardia Lungs: clear to auscultatio n Abdomen: bowel sounds present , soft and nontender Extremities: no leg edema General Appearance: NAD Skin: normal, no rash Neurologic Exam: Intact, gait normal Neck: supple, no lymphaden opathy Oral cavity: no lesions, mucosa m oist and WNL, no erythema Peripheral pulses: normal (2+) bilatera lly Chest: normal shape and exp ansion
--- OUTSIDE RECORDS SUMMARY | 2025-07-17 04:45 | XMS_ITS ---
Author Organization Josseline Address 1210 [facility] 36 [facility] [address] [place] [id number] Care Team Providers Care Dock Builder Name Role Phone Arlyn Banda Primary Care Provider Julia Arevalo Unavailable [phone] Halley Erazo Unavailable [phone] Allergies Allergen (clinical drug ingredient) Drug/Non Drug [...] Encounter Location Date Provider Diagnosis [facility] 36 [facility] [address] [place] [id number] 07/17/2025 Halley Erazo Tick bite W57.XXXA a nd Redness of skin L53.9 Assessments Encounter Date Diagnosis (ICD Code) Assessment Notes Treatment Notes Treatment Clinical Notes Section Notes 07/17/2025 Tick bite (ICD-10 - W57.XXXA) Patient is unsure if she is actually allergic to tetracycline. She only broke out in a rash when she took tetracycline with codeine. She had codeine on a separate occasion and broke out in a rash. Will try the doxycycline. 07/17/2025 Redness of skin (ICD-10 - L53.9) Plan Of Treatment Medication Medication Name Sig [...] Details Follow Up: prn, Reason: Provider Name:Nader Chuyita Beulah , 08/24/2025 03:30:00 PM, [address] [facility] 36 [facility], [address], [place], [place], [id number], Progress Notes * Ramos BARRONOB:1960 (65 yo F)Acc No.[id number]:07/17/2025 Progress Notes Patient: Ekaterina LOW Provider: FILOMENA Hewitt :1960 A ge:65 Y S ex:Female Date:07/17/2025 Address:[address] [place] [address] [address], [place], [id number] Pcp:Arlyn Banda Subjective: * Chief Complaints: * [...] Temp: 97.7, BP: 128/70, HR: 66, Nurse: pe, Ht: 65, BMI:21.96. * Examination: G eneral Examination: General Appearance: N AD. C hest: n ormal shape and expansion. H eart: R SR. L ungs: c lear to auscultation. S kin: S mall tick in the skin on the right torso, it was removed with splinter forceps, there is erythema around the bite. Assessment: * Assessment: 1. R edness of skin - L53.9 (Primary) 2 . T ick bite - W57.XXXA ? Plan: * Treatment: * Follow Up: p rn * Images: Billing Information: * Visit Code: 85918 Office Visit, Est Pt., Level 3. * Procedure Codes: * Electronic signature of FILOMENA Coles on 08/24/2025 at 04:12 PM EST Sign off status: Pending * Provider: FILOMENA Hewitt Date: 09/16/2024 Generated for Renetta aviles/Teresa/Nadineransmitting on: 10/25/2024 04:12 PM EST History and Physical Notes * Examination Category Sub-Category Detail Notes Category Not es General Examination Heart: RSR Lungs: clear to auscultatio n General Appearance: NAD Skin: Small tick in the sk in on the right torso, it was removed with splinter forceps, there is erythema around the bite Chest: normal shape and exp ansion
--- OUTSIDE RECORDS SUMMARY | 2025-08-24 16:11 | XMS_ITS | Clinical Summary ---
[facility] Address [address] [place] [address] Care Team Providers Care Die Mechanic Name Role Phone Unavailable Primary Care Provider Unavailabl e Social History Tobacco Use Types Packs/Day Years Used Date Smoking Tobacco: Never Assessed Comments Unknown Sex and Gender Information Value Date Recorded Sex Assigned at Not on file Legal Sex Female 3:55 PM EST Gender Identity Not on file Sexual Orientation Not on file Plan of Treatment Upcoming Encounters Date Type Department Care Team (Late st Contact Info) Description 09/11/2025 10:45 AM EST Appointment [facility] [address] [place] [address] [address] [place] [address] Health Maintenance Due Date Last Done Comments ANNUAL PHYSICAL 1961 Annual Gynecologic Pelvic and Breast Exam 1961 HEPATITIS C SCREENING 1961 TDAP/TD VACCINES (1 - Tdap) 1980 MAMMOGRAM 2001 COLOGUARD 2006 COLON CANCER SCREENING 5 YEAR SIGMOIDOSCOPY 2006 COLONOSCOPY [address] CANCER SCREENING 2006 CT COLONOGRAPHY 2006 FECAL OCCULT BLOOD TEST 2006 FIT Testing (1 year) 2006 Pneumococcal Vaccine 50+ (1 of 1 - PCV) 2011 ZOSTER VACCINE (1 of 2) 2011 INFLUENZA VACCINE 04/03/2025
--- OUTSIDE RECORDS SUMMARY | 2025-08-24 16:12 | XMS_ITS | Patient Health Record ---
Author Organization [facility] Address [address] [place] [id number] Care Team Providers Care Metal Fabrication Supervisor Name Role Phone Arlyn Banda Primary Care Provider [phone] Julia Arevalo Unavailable [phone] Nader Mcknight Unavailable [phone] Sagrario Da Silva Unavailable [phone] Halley Erazo Unavailable [phone] Allergies Allergen (clinical drug ingredient) Drug/Non Drug [...] Interpretation: Performing Lab: Notes/Report: Test performed by [facility] [address] [place] [address] , [address], [place] [address] Dell Wilder MD, Women'S Apparel Salesperson CLIA: [id number] Vitamin B12 [phone] pg/mL P-Comprehensive Metabolic Pa michael (CMP) Reviewed date:04/29/2025 01:21:29 PM Interpretation: Performing Lab: Notes/Report: Test performed by [facility] [address] [place] [address] , [address], [place] [address] Dell Wilder MD, Women'S Apparel Salesperson CLIA: [id number] Sodium 141 135-145 mmol/L Potassium 4.8 3.5-5.3 [...] Interpretation: Performing Lab: Notes/Report: Test performed by [facility] [address] [place] [address] , [address], [place] [address] Dell Wilder MD, Women[employer]S Apparel Salesperson CLIA: [id number] Jensen Ochoa Virus (EBV) VCA Antibodies IgG 7.3 <0.9 AI Jensen Ochoa Virus (EBV) VCA Antibodies IgM <0.2 <0.9 AI P-T4 Free (thyroxine) Reviewed date:04/29/2025 01:21:29 PM Interpretation: Performing Lab: Notes/Report: Test performed by [facility] [address] [place] [address] , [facility] [place] [address] Dell Wilder MD, Women'S Apparel Salesperson CLIA: [id number] Thyroxine Free (free T4) 5.79 0.86-1.76 ng/dL P-TSH reflex to FT4 Reviewed date:04/29/2025 01:21:29 PM Interpretation: Performing Lab: Notes/Report: Test performed by [facility] [address] [place] [address] , [place] [address] Dell Wilder MD, Women'S Apparel Salesperson CLIA: [id number] TSH reflex to FT4 <0.005 0.43-5.25 mU/L P-Vitamin D 25-Hydroxy Reviewed date:04/29/2025 01:21:29 PM Interpretation: Performing Lab: Notes/Report: Test performed by [facility] [address] [place] [address] , [place] [address] Dell Wilder MD, Women'S Apparel Salesperson CLIA: [id number] Vitamin D 25-Hydroxy 34.1 30.0-100.0 ng/mL Interpretation [...] Interpretation:Normal Performing Lab: Notes/Report: Test performed by [facility] [address] [place] [address] , [address], [place] [address] Dell Wilder MD, Women'S Apparel Salesperson CLIA: [id number] Sodium 140 135-145 mmol/L Potassium 5.2 3.5-5.3 [...] Interpretation:6.69 Performing Lab: Notes/Report: Test performed by [facility] [address] [place] [address] , [address], [place] [address] Dell Wilder MD, Women'S Apparel Salesperson CLIA: [id number] Thyroxine Free (free T4) 6.69 0.86-1.76 ng/dL P-TSH reflex to FT4 Reviewed date:05/07/2025 05:08:51 PM Interpretation:<0.005 Performing Lab: Notes/Report: Test performed by [facility] [address] [place] [address] , [address], [place] [address] Dell Wilder MD, Women'S Apparel Salesperson CLIA: [id number] TSH reflex to FT4 <0.005 0.43-5.25 mU/L [...] H Performing Lab: Notes/Report: Test performed by [facility] [address] [place] [address] , [address], [place] [address] Dell Wilder MD, Women'S Apparel Salesperson CLIA: [id number] Thyroid Peroxidase Antibody <9 <9-34 IU/mL An [...] methods or kits cannot be directly compared. xultrasound : thyroid Reviewed date:05/15/2025 12:13:04 AM Interpretation: Performing Lab: Notes/Report: H-CBC Reviewed date:04/29/2025 01:21:29 PM Interpretation: Performing [...] 0.0 0-0.2 K/mm3 NRBC# 0 IG# 0.05 H-CMP Reviewed date:04/28/2025 09:25:17 AM Interpretation: Performing [...] 0.0 0-0.2 K/mm3 NRBC# 0 IG# 0.09 CBC Fingerstick (in house) Reviewed date:03/25/2025 02:27:51 [...] - 38 plat 201 100 - 400 Pathology evaluation Reviewed date:11/28/2024 05:29:41 PM Interpretation:Negative Performing Lab: Notes/Report: Negative Medications Medication SIG (Take, Route, Frequency, Duration) Notes Start Date End Date Status methIMAzole 10 MG 1 tablet Orally Once [...] Status W/U Status Risk Notes Problem Diverticulitis (79633623) Diverticulitis (K57.92) Active confirmed Problem Seasonal allergy (781962754) Seasonal allergies (J30.2) Active confirmed Problem Sciatic nerve lesion (826813324) Piriformis syndrome of right side (G57.01) Active confirmed Problem Hyperthyroidism (23648601) Hyperthyroidism (E05.90) Active confirmed Problem Acute constipation (761260154) Acute constipation (K59.00) Active confirmed Problem Chronic pain (86396159) Other chronic pain (G89.29) Active confirmed Problem Diverticulitis of colon (839102262) Diverticulitis of large intestine without perforation or abscess without bleeding (K57.32) Active confirmed Problem Thyroiditis (43984643) Thyroiditis (E06.9) Active confirmed Problem Insomnia disorder related to another mental disorder (85220843) Psychophysiological insomnia (F51.04) Active confirmed Problem Sleep disorder (15970302) Sleep disorder (G47.9) Active confirmed Problem Obstructive sleep apnea syndrome (44641452) GALEN (obstructive sleep apnea) (G47.33) Active confirmed Problem Insomnia (437538166) Insomnia, unspecified type (G47.00) Active confirmed Problem Hemorrhage of colon due to diverticulosis (895163847538374) Diverticulosis of large intestine with hemorrhage (K57.31) Active confirmed Problem Pain of right hip joint (917761211076506) Pain of right hip joint (M25.551) Active confirmed Problem Skin sensation disturbance (90596395) Paresthesia of both lower extremities (R20.2) Active confirmed Problem Menopausal symptom (61193180) Hot flashes due to menopause (N95.1) Active confirmed Vital Signs Heart Rate 68 /min 08/24/2025 Blood pressure diastolic 70 mm Hg 08/24/2025 Height 65 in 08/24/2025 Blood pressure systolic 124 mm Hg 08/24/2025 Weight 135.8 lbs 08/24/2025 BMI 22.6 kg/m2 08/24/2025 Encounters Encounter Location Date Provider Diagnosis [facility] [address] [facility] [address] [place] [id number] 03/09/2025 Sagrario Avinash Acute sinusitis J01. 90 and BMI 23.0-23.9, adult Z68.23 [facility] [address] [facility] [address] [place] [id number] 03/20/2025 Halley Crowdy Acute URI J06.9 [facility] [address] [facility] [address] [place] [id number] 03/27/2025 Halley Crowdy Acute URI J06.9 and BMI 22.0-22.9, adult Z68.22 [facility] [address] [facility] [address] [place] [id number] 04/09/2025 Arlyn Banda Acute sinusitis, recurrence not specified, unspecified location J01.90 and BMI 22.0-22.9, adult Z68.22 [facility] [address] [place] [id number] 04/23/2025 Halley Crowdy Acute sinusitis, recurrence not specified, unspecified location J01.90 ; Other fatigue R53.83 ; Psychophysiological insomnia F51.04 ; Seasonal allergies J30.2 and BMI 22.0-22.9, adult Z68.22 [facility] [address] [facility] [address] [place] [id number] 05/06/2025 Halley Crowdy Diverticulitis K57.9 2 ; Palpitations R00.2 [address].9 [facility] [address] [facility] [address] [place], [place] [id number] 05/08/2025 Halley Crowdy Palpitations R00.2 [facility] [address] [place], [place] [id number] 05/13/2025 Halley Crowdy Hyperthyroidism E05. 90 ; Thyroiditis E06.9 ; Tachycardia R00.0 and BMI 21.0-21.9, adult Z68.21 [facility] [address] [place], [place] [id number] 07/17/2025 Halley Erazo Tick bite W57.XXXA a nd Redness of skin L53.9 [facility] [address] [place], [place] [id number] 08/24/2025 Nader Livingston Generalized edema R6 0.1 [facility] [address] [place], [place] [id number] 03/23/2025 Arlyn Banda Encounter for screen ing for malignant neoplasm of lung Z12.2 and Encounter for screening for malignant neoplasm of breast Z12.31 [facility] [address] [place], [place] [id number] 04/23/2025 Halley Erazo [facility] [address] [place], [place] [id number] 04/29/2025 Halley Erazo [facility] [address] [place], [place] [id number] 05/07/2025 Halley Crowlincoln [facility] [address] [place], [place] [id number] 05/18/2025 Arlyn Banda Breast cancer screen ing Z12.31 and Encounter for screening for lung cancer Z12.2 [facility] [address] [place], [place] [id number] 05/22/2025 aHlley Erazo Assessments Encounter Date Diagnosis (ICD Code) [...] next week. 05/08/2025 Palpitations (ICD-10 - R00.2) 05/18/2025 Encounter for screening for lung cancer [...] 07/17/2025 Redness of skin (ICD-10 - L53.9) 08/24/2025 Generalized edema (ICD-10 - R60.1) 05/13/2025 Hyperthyroidism (ICD-10 - E05.90) Patient has [...] CT Scan : Chest, low dose 05/18/2025 H-TSH 08/24/2025 H-CBC 08/24/2025 H-CMP 08/24/2025 H-T4 free 08/24/2025 Next Appt Details Provider Name:Nader Riojas ry, 08/24/2025 03:30:00 PM, [address], [place], [place], [id number], Insurance Providers Payer Name Payer Address Payer Phone Subscriber Number Group Number Insured Name Patient Relationship to Insured Coverage Start Date Coverage End Date [employer] [address] [place] [address] [id number] Ekaterina Barron Self - patient is the insured Medications Administered Medication Instructions Date of Administration Dosage Notes depo medrol 80 mg 06/23/2005 0.5 mL Depo- Medrol 40 mg/ml 01/04/2016 1 mL Medical (General) History Medical History History ICD Code kidney stones depression diverticulitis Lumbar Disc Disease, MRI 2011 Lumbar facet arthropathy Moderna Covid vaccine x2 Dec 2020 hyperthyroid Surgical History Surgery Date(Month/Year) tonsillectomy tubal ligation Right Breast Biospy 05/2007 gum grafting 12/2012 Hospitalization History Reason Date(Month/Year) vaginal live child , no complicatio ns x3 1984, 1989, 1993
[2025-08-24 17:15] LABS: Hematocrit 46.0 % (37.0-47.0); Hemoglobin 16.0 g/dL (12.2-16.2); Immature Granulocytes % 0.4 %; Mean Corpuscular HGB Conc 34.8 g/dL (31.8-35.4); Mean Corpuscular Hemoglobin 30.8 pg (27.0-31.2); Mean Corpuscular Volume 88.5 fl (81-99); Nucleated Red Blood Cells % 0 %; Platelet Count 290 K/mm3 (142-424); Red Blood Count 5.20 M/mm3 (4.20-5.40); Red Cell Distribution Width-SD 53.8 fL; White Blood Count 11.0 K/mm3 (4.8-10.8)
[2025-08-24 18:22] LABS: Alanine Aminotransferase 30 U/L (12-78); Albumin Level 5.0 g/dl (3.5-5.0); Albumin/Globulin Ratio 1.7 (1.1-1.8); Alkaline Phosphatase 107 U/L (38-126); Anion Gap 7.9 mEq/L (5-15); Aspartate Amino Transferase 52 U/L (14-36); Bilirubin,Total 0.6 mg/dl (0.2-1.3); Blood Urea Nitrogen 10 mg/dl (7-17); Calcium 9.6 mg/dl (8.4-10.2); Carbon Dioxide 30 mmol/L (22.0-30.0); Chloride 101 mmol/L (98-107); Creatinine,Serum 1.40 mg/dl (0.52-1.04); Estimated Glomerular Filt Rate 38 ml/min (>60); GFR (African American) 46 ML/MIN (>60); Globulin 3.0 g/dL (1.3-3.2); Glucose 66 mg/dl (74-100); Potassium 3.9 mmoL/L (3.5-5.1); Sodium 135 mmol/L (136-145); Total Protein,Serum 8.0 g/dl (6.3-8.2)
[2025-08-24 18:44] LABS: Free T4 (Free Thyroxine) < 0.07 ng/dl (0.78-2.19)
[2025-08-24 19:39] LABS: Thyroid Stimulating Hormone 125.00 uIU/mL (0.465-4.68)
== END 2025-08-24 23:59 | disposition home or self-care (01) ==
LOC: LAB 16:09
PROVIDERS: PCP Family Medicine; Visit Provider Student in an Organized Health Care Education/Training Program
DX: E05.00 Thyrotoxicosis with diffuse goiter without thyrotoxic crisis or storm (principal)
CPT/HCPCS: 36415; 80053; 84439; 84443; 85025